=== PATIENT | female | born 1960 | race Caucasian/White ===

== ENCOUNTER 2016-06-03 06:24 | Inpatient (IN) | payer OTHER ==
[2016-05-07 09:37] VITALS: BMI 52.0
--- NOTE | 2016-05-07 10:15 | PAT Medication Instructions ---
Service Date May 07, 2016. Current Home Medication List Aspirin (Aspirin Ec), 81 MG PO QAM Ggmhloy-Dvorkngxrkomy-Avipdydt (Excedrin Migraine), 2 TAB PO PRN Atenolol (Tenormin), 50 MG PO QAM Furosemide (Lasix), 20 MG PO QAM Naproxen (Aleve), 440 MG PO PRN Medication Instructions For Your Scheduled Surgery Hoquefy-Vvpukohzoupdg-Mtudbjgt (Excedrin Migraine), 2 TAB PO PRN (takes rarely) Naproxen (Aleve), 440 MG PO PRN (patient will check with surgeon for instructions) - Hold the following medications the morning of surgery: Furosemide (Lasix), 20 MG PO QAM - Take the following medications the morning of surgery with a sip of water: Atenolol (Tenormin), 50 MG PO QAM Aspirin (Aspirin Ec), 81 MG PO QAM If you have any questions please call us at [phone] or [phone] ( [place]) or [phone]
[2016-05-07 10:48] LABS: BASO % 0.4 %; BASO ABS # 0.04 K/uL (0-0.2); COMPLETE YES; EOS % 5.2 %; HEMATOCRIT 40.3 % (37-47); IG% 0.1 %; LYMPH % 26.4 %; LYMPH ABS # 2.49 K/uL (1.2-3.4); MEAN CELL VOLUME 89.8 fL (80-100); MEAN CORPUSCULAR HEMOGLOBIN 30.7 pg (25-34); MEAN CORPUSCULAR HGB CONC 34.2 g/dl (32-36); MONO % 9.8 %; NEUT % 58.1 %; PLATELET COUNT 376 K/uL (130-400); RED BLOOD COUNT 4.49 M/uL (4.2-5.4); WHITE BLOOD COUNT 9.42 K/uL (4.8-10.8)
[2016-05-07 10:55] LABS: PARTIAL THROMBOPLASTIN RATIO 1.3; PROTHROMBIN TIME (PATIENT) 10.5 SECONDS (9.0-12.0)
--- NOTE | 2016-05-07 11:07 | DIAGNOSTIC IMAGING REPORT ---
CHEST PREADMISSION(PA/LAT) CLINICAL HISTORY: Preoperative chest COMPARISON STUDY: No previous studies for comparison. FINDINGS: The cardiac and mediastinal contours are normal. There is no evidence of focal pulmonary consolidation. There is no evidence of failure. No pleural effusions are visualized.[ Linear opacities the left lung base are felt to be atelectatic. IMPRESSION: No active disease in the chest. Electronically signed by: Abe Morelos M.D. 05/07/2016 11:05 AM Dictated Date/Time: 05/07/2016 11:05 AM
[2016-05-07 11:22] LABS: BUN/CREATININE RATIO 21.7 (10-20); CALCIUM 9.2 mg/dl (8.5-10.1); CREATININE 0.75 mg/dl (0.60-1.20); POTASSIUM 4.1 mmol/L (3.5-5.1)
--- NOTE | 2016-05-31 10:09 | HISTORY & PHYSICAL EXAMINATION ---
DATE OF ADMISSION: 06/03/2016 CHIEF COMPLAINT: Bilateral knee pain, right side greater than left. HISTORY OF PRESENT ILLNESS: The patient is a 55-year-old female from [place] who presents for treatment of her knees. She has a long history of bilateral knee pain and discomfort, right side greater than left, dating back to many years ago. Things have just gradually gotten worse. She has been treated by Dr. [place] at [facility] as well as her primary care doctor at [facility] with injections. This seemed to help the left knee, but not the right knee much anymore. She has become more debilitated by her pain. She can not walk any significant distance. She is strongly desiring knee replacement surgery. PAST MEDICAL HISTORY: 1. Hypertension. 2. Morbid obesity, BMI 52. PAST SURGICAL HISTORY: . ALLERGIES: No known drug allergies. CURRENT MEDICATIONS: Include: 1. Unspecified blood pressure medicine. 2. Fluid retention pill. 3. Aleve/ibuprofen. SOCIAL HISTORY: A 55-year-old female. She is . Two children. Lives in [place]. 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 FAMILY HISTORY: Noncontributory. REVIEW OF SYSTEMS: Negative for diabetes, neurologic problems, vascular problems, bleeding disorders. Denies any chest pain, no shortness of breath. No history of DVT or PE. PHYSICAL EXAMINATION: GENERAL: Reveals a healthy pleasant, middle-aged female. She looks to be in good health. She is quite obese. HEAD, EYES, EARS, NOSE, AND THROAT EXAMINATION: Benign. NECK: Supple. No lymphadenopathy. LUNGS: Clear to auscultation. HEART: Regular rate and rhythm. ABDOMEN: Soft, nontender, nondistended. EXTREMITY EXAMINATION: Grossly neurovascularly intact except as follows: Examination of both knees reveals the patient walks with a waddling gait. She limps a little bit more on the right than left. Fairly large soft tissue envelope, particularly up in the thigh area. Knee effusions are difficult to evaluate due to the soft tissue envelope. Range of motion is pretty symmetrical with near full extension to 110 degrees of flexion bilaterally. No pain with hip motion. X-RAYS: X-rays show advanced bilateral knee DJD. The right side is a bit worse than the left. She has complete loss of her medial joint space. ASSESSMENT: A 55-year-old morbidly obese female with advanced bilateral knee degenerative joint disease. She has failed conservative treatment. She is still getting some management on the left side but nothing on the right as far as pain relief. She would like to have her knee replaced. PLAN: After extensive discussions, we are going to proceed with right knee replacement. The risks and benefits of this procedure were explained to the patient include but not limited to DVT, PE, , infection, neurological injury, vascular injury, bleeding problem, pain, limited range of motion, stiffness, failure to relieve was symptoms, incomplete relief of symptoms, need for revision surgery in the future, etc. The patient understands and desires to proceed. Informed consent was obtained. I did make her fully aware that at her age she may need to have this redone in the future. I also discussed with her the risk of her obesity and the increased risks of surgeries, specifically infection risk as well as thrombosis risk. She understands and strongly desires to proceed. The patient had preoperative workup. Chest x-ray showed no acute disease. EKG was normal. Labs were normal. Will proceed with right knee replacement. She will plan on being discharged to home with the [facility] home health program postop. I will see her back 2 weeks postop.
[~2016-06-03] VITALS: Ht 157.5 cm; Wt 129.4 kg
[2016-06-03] VITALS (9 sets, daily range): BP systolic 111–164; BP diastolic 71–98; PULSE 71–93; TEMP 36.3–36.7; O2SAT 97–100; Ht 157.5 cm; Wt 129.4 kg
[~2016-06-03 06:24] MED LIST: ACETAMINOPHEN 500 MG TAB PO SCH; ASPI-390 PO; ASPI81TA28 PO; ATEN50TA8 PO; BUPIVACAINE LIPOSOME 266 MG, BUPIVACAINE/EPINEPHRINE INJ 50 ML, SODIUM CHLORIDE 0.9% PF... INFIL SCH; CEFAZOLIN 3000 MG/65 ML D5W 65 ML IV SCH; FAMOTIDINE 20 MG TAB PO SCH; FURO-85 PO; GABAPENTIN 300 MG CAP PO SCH; LACTATED RINGER'S 1000ML 1,000 ML IV SCH; LACTATED RINGER'S 1000ML IV SCH; METOCLOPRAMIDE HCL 10 MG TAB PO SCH; NAPR1TAB9 PO; SCOPOLAMINE 1.5 MG TDSY TD SCH; TRANEXAMIC ACID INJ 1,000 MG in SODIUM CHLORIDE 0.9% 100ML 100 ML IV SCH
--- NOTE | 2016-06-03 06:51 | History & Physical Bridge Note ---
H&P Re-Evaluation Bridge Note: I have examined the patient, reviewed the History & Physical and in the interval since the performance of the History & Physical I have noted the following changes of clinical significance: No changes noted
[2016-06-03 07:10] LABS: PREG INTERNAL NEGATIVE QC NEG CLEAR BACKGROUND; PREG INTERNAL POSITIVE QC POS CONTROL LINE
[2016-06-03] MEDS ORDERED: BUPIVACAINE 0.5 % 5 MG/1 ML PF 10ML VIAL ONE (07:23)
[2016-06-03] MEDS ORDERED: BUPIVACAINE 0.25% 30 ML VIAL ONE (07:23)
[2016-06-03] MEDS ORDERED: FENTANYL CITRATE INJ 50 MCG/1 ML 2 ML VIAL ONE ×3 (08:08→10:52)
[2016-06-03] MEDS ORDERED: MIDAZOLAM HCL 1 MG/ML 2ML VIAL ONE ×2 (08:08)
[2016-06-03] MEDS ORDERED: MoRPHine SULFATE PF 1 MG/ML 10 ML AMP/VIAL ONE (08:09)
[2016-06-03] MEDS ORDERED: BUPIVACAINE/EPINEPHRINE 0.25% 1:200,000 30 ML VIAL ONE (08:29)
[2016-06-03] MEDS ORDERED: SODIUM CHLORIDE 0.9% PF 50 ML VIAL ONE (08:29)
[2016-06-03] MEDS ORDERED: BUPIVACAINE LIPOSOME 1/3% 266 MG/20 ML VIAL INFIL ONE (08:29)
[2016-06-03] MEDS ORDERED: BACITRACIN 50000 UNIT VIAL ONE (08:29)
[2016-06-03] MEDS ORDERED: ONDANSETRON INJ 2 MG/ML 2 ML VIAL ONE (09:48)
[2016-06-03] MEDS ORDERED: ROCURONIUM BROMIDE 10 MG/ML 5 ML VIAL ONE (09:48)
[2016-06-03] MEDS ORDERED: SUCCINYLCHOLINE 100MG/5ML SYR IV ONE (09:48)
[2016-06-03] MEDS ORDERED: ESMOLOL HCL 10 MG/ML 10 ML VIAL ONE (09:48)
[2016-06-03] MEDS ORDERED: LIDOCAINE HCL 2% 2 ML VIAL (20MG/ML) ONE (09:48)
[2016-06-03] MEDS ORDERED: DEXAMETHASONE SOD INJ 4 MG/ML VIAL ONE (09:48)
[2016-06-03] MEDS ORDERED: PROPOFOL IV EMULSION 10 MG/ML 20 ML VIAL IV ONE (09:48)
[2016-06-03] MEDS ORDERED: PHENYLEPHRINE 100MCG/ML 5ML SYR ONE (09:48)
[2016-06-03] MEDS ORDERED: GLYCOPYRROLATE INJ 0.2 MG/ML VIAL ONE (10:40)
[2016-06-03] MEDS ORDERED: NEOSTIGMINE METHYLSULFATE 5 MG/5 ML SYR ONE (10:40)
[2016-06-03] MEDS ORDERED: ONDANSETRON INJ 2 MG/ML 2 ML VIAL IV PRN ×2 (11:00→11:15)
[2016-06-03] MEDS ORDERED: ATROPINE SULFATE 0.1 MG/ML 5ML SYR IV PRN (11:00)
[2016-06-03] MEDS ORDERED: EpHEDrine SULFATE INJ 50 MG/ML AMP IV PRN (11:00)
[2016-06-03] MEDS ORDERED: PROMETHAZINE HCL INJ 12.5 MG in SODIUM CHLORIDE 0.9% 50ML 50 ML IV PRN (11:00)
--- NOTE | 2016-06-03 11:02 | [facility] Post Operative Brief Note ---
Immediate Operative Summary Operative Date Jun 03, 2016. Pre-Operative Diagnosis Right Knee Advanced Degenerative Joint Disease Post-Operative Diagnosis Right Knee Advanced Degenerative Joint Disease Procedure(s) Performed Right Total Knee Arthroplasty Surgeon Dr. Puga Director Of Software Engineering Surgeon(s) KEERTHI Ma Estimated Blood Loss 50 ml Findings Right Knee DJD Fluids (cc crystalloids) 1100 cc Specimens A. Right Knee Bone and Tissue Drains None Anesthesia General Complication(s) None Disposition Recovery Room / PACU
[2016-06-03] MEDS ORDERED: BISACODYL 10 MG SUPP PR PRN (11:15)
[2016-06-03] MEDS ORDERED: MoRPHine SULFATE 2 MG/ML CARP IV PRN (11:15)
[2016-06-03] MEDS ORDERED: METOCLOPRAMIDE HCL INJ 5 MG/ML 2 ML VIAL IV PRN (11:15)
[2016-06-03] MEDS ORDERED: ALUMINUM/MAGNESIUM/SIMETH (MAALOX MAX) 30 ML UDC PO PRN (11:15)
[2016-06-03] MEDS ORDERED: DiphenhydrAMINE HCL 50 MG/ML VIAL IV PRN (11:15)
[2016-06-03] MEDS ORDERED: SILVER SULFADIAZINE 1% CR 50 GM JAR EXT PRN (11:15)
[2016-06-03] MEDS ORDERED: ZOLPIDEM TARTRATE 5 MG TAB PO PRN (11:15)
[2016-06-03] MEDS: HYDROmorphone INJ 1 MG/ML SYR IV PRN ×8 (11:22→12:05)
--- NOTE | 2016-06-03 11:31 | OPERATIVE REPORT ---
DATE OF OPERATION: 06/03/2016 SURGEON: Dr. Luis Antonio Puga. INSOLE TAPER: KEERTHI Kaplan PREOPERATIVE DIAGNOSIS: Right knee degenerative joint disease. POSTOPERATIVE DIAGNOSIS: Same. PROCEDURE PERFORMED: Right cemented posterior stabilized total knee arthroplasty. COMPLICATIONS: None. ESTIMATED BLOOD LOSS: 50 mL. FLUID REPLACEMENT: 1100 mL crystalloid fluid replacement. TOURNIQUET TIME: 59 minutes at 350 mmHg. ANESTHESIA: General. SPECIMENS: Right knee sent for pathology. OPERATIVE INDICATIONS: The patient is a 55-year-old female who has had a long history of bilateral knee pain and discomfort, right side greater than left. She has been through extensive conservative treatment without adequate relief. She is morbidly obese. She has tried to lose weight unsuccessfully. Pain has become debilitating to the point she is even trouble getting around. The patient elects to proceed with total knee arthroplasty. The increased risks with her morbid obesity were explained and she understood and desired to proceed. Of note, we did use a tibial stem due to her large size in order to decrease its likelihood of loosening of the tibial component. OPERATIVE FINDINGS: Operative findings revealed advanced right knee DJD. She had grade 4 [id number] disease, particularly of the medial femoral condyle and medial tibial plateau. Moderate size joint effusion. Large soft tissue envelope. OPERATIVE IMPLANTS: Operative implants consisted of: 1. Biomet Vanguard size 62.5 right posterior stabilized femoral component. 2. Biomet size 63 tibial tray with a 5-mm offset, and 11 x 80-mm stem extension, and small cruciate wing. 3. A 10-mm posterior stabilized polyethylene insert. 4. A 31 x 8 all poly patella. OPERATIVE PROCEDURE: The patient was taken to the operating room, identified and placed on the operating table in the supine position. All contact areas were appropriately padded. IV antibiotics were provided by anesthesia team. A spinal anesthetic was attempted in the holding area, but unsuccessful. A general anesthetic was therefore implemented. A Hollingsworth catheter was placed in sterile fashion. Right thigh tourniquet was then placed. The right lower extremity was then prepped and draped in the usual sterile fashion. The right leg was elevated and exsanguinated with Esmarch and tourniquet was placed at 350 mmHg. An anterior approach to the right knee was then performed through a longitudinal incision centered over the patella. Sharp dissection was carried out through the subcutaneous tissues down to the level of the extensor mechanism. A medial parapatellar arthrotomy incision was made. Some subperiosteal dissection was carried out medially. The patella was subluxated laterally. The lateral patellofemoral ligament was released. The knee was flexed. The osteophytes were taken off the distal femur. The ACL and PCL were then released from the distal femur and the tibia subluxated anteriorly. I then used a saw to cut off the intercondylar eminence area. I entered the intramedullary canal with a drill. We reamed up to a size 11, which seemed to fit appropriately. I then cut the proximal tibia to remove 2 mm of bone from the most deficient aspect of the medial tibial plateau. I then sized the tibia to a size 63. The 67 was just a little too big. I then prepared the proximal tibia for a 5-mm offset stem with a 63 tray with a small cruciate wing. Attention was then drawn to the femur. The distal femur was entered with a sharp drill. Intramedullary canal was suctioned. A right 5-degree valgus cutting guide was placed. Distal femoral cutting block was pinned in place. Distal femoral cut was made to take an additional 3 mm of bone off the distal femur. The femur was then sized to a size 62.5. We did downsize this slightly. The AP cutting block was pinned parallel to the epicondylar axis, which was 4 degrees of external rotation. The anterior cut, anterior chamfer, posterior cut, and posterior chamfer cuts were made. Box cutting guide was placed and adjusted slightly lateral and the box cut was made. The knee was flexed. The remnants of the medial and lateral menisci were excised. The osteophytes were taken off the posterior aspect of the femur. Trial femoral component was placed. I then trialed the knee. A 10-mm insert fit most appropriately. Attention was then drawn to the patella. The patella was cleaned of all soft tissues. Patella thickness measured 23 mm, cut down to 13. It was sized to a size 31 patella. Lug holes were drilled for the 31 patella. Lateral osteophyte was removed. Patella button was placed. Knee was taken through range of motion and the patella tracked nicely with no thumbs test. Attention was then drawn toward placement of the permanent components. All trial components were removed. A bone plug was placed in the distal femur to limit blood loss. A double batch of Palacos G cement was mixed. A right size 62.5 posterior stabilized femoral component, size 63 tibial tray with an 80 x 11 offset stem with a 5-mm offset adapter and a small cruciate wing was then placed. A 31 x 8 all poly patella was placed. All extraneous cement was removed. The knee was brought out into full extension until cement hardened. A final cement check was then performed. Pericapsular tissues were injected with a total of 100 mL of a combination of 20 mL of Exparel, 30 mL of normal saline, and 50 mL of 0.25% Marcaine with epinephrine. The patient did receive 1 gram of tranexamic acid. The tourniquet was then let down for final tourniquet time of 69 minutes. Hemostasis was assured with use of electrocautery. The extensor mechanism was then closed with a combination of #1 PDS suture and #1 Vicryl suture in a [id number] fashion. Extensor mechanism was checked and found to be intact. The subcutaneous tissues were then closed with 2-0 Dexon suture in a buried interrupted fashion. Skin was closed skin chester. Leg was then cleaned and dried and a sterile dressing of Xeroform, 4 x 4, sterile cast padding and Yadiel bandage were applied. The patient then transferred to the recovery room in stable condition. The patient tolerated the procedure well with no complications. All needle and sponge counts were correct at the end of the operation. I attest to the content of the Intraoperative Record and any orders documented therein. Any exceptions are noted below. FRANCISD
--- NOTE | 2016-06-03 11:32 | DIAGNOSTIC IMAGING REPORT ---
RIGHT KNEE 1 OR 2 VIEWS ROUTINE CLINICAL HISTORY: AP/LATERAL IN PACU RIGHT KNEE Right postoperative evaluation COMPARISON: None DISCUSSION: Total right knee replacement in good position. Longstem tibial prosthetic. Surgical drains in position. Expected soft tissue postoperative change. IMPRESSION: Anatomic alignment status post total right knee replacement Electronically signed by: Hiren Lemus M.D. 06/03/2016 11:30 AM Dictated Date/Time: 06/03/2016 11:30 AM
--- NOTE | 2016-06-03 11:41 | Anesthesiology Progress Note ---
Anesthesia Post Op Note Date & Time Jun 03, 2016 at 11:42 Vital Signs Pain Intensity: 4 Vital Signs Past 12 Hours Date Time Temp Pulse Resp B/P Pulse Ox O2 Delivery O2 Flow Rate FiO2 06/03/16 11:40 78 12 161/91 100 Nasal Cannula 2 06/03/16 11:30 82 18 151/80 99 Mask 10 06/03/16 11:20 79 20 141/88 100 Mask 10 06/03/16 11:11 36.8 80 20 140/74 97 Mask 10 06/03/16 07:20 36.7 78 18 162/98 98 Room Air Notes Mental Status: alert / awake / arousable, participated in evaluation Pt Amnestic to Procedure: Yes Nausea / Vomiting: adequately controlled Pain: adequately controlled Airway Patency, RR, SpO2: stable & adequate BP & HR: stable & adequate Hydration State: stable & adequate Anesthetic Complications: no major complications apparent
[2016-06-03] MEDS: OXYCODONE HCL IR 5 MG TAB (IMMEDIATE RELEASE) PO PRN ×2 (13:35→17:28)
--- NOTE | 2016-06-03 13:47 | PROGRESS NOTE ---
DATE: 06/03/2016 SUBJECTIVE: A 55-year-old female status post a right total knee replacement. She is doing well. Pain is controlled. Not really have any pain at all. No chest pain or shortness of breath. Not feeling dizzy or lightheaded. OBJECTIVE: VITAL SIGNS: Temperature 36.4. Vital signs stable. GENERAL: Physical examination reveals a healthy, pleasant middle-aged female. She is sitting up in bed and talking to her family. Looks comfortable. LUNGS: Clear to auscultation. HEART: Regular rate and rhythm. ABDOMEN: Soft, nontender, and nondistended. EXTREMITIES: Grossly neurovascularly intact except as follows: Examination of the right lower extremity reveals the leg to be well aligned. Large soft tissue envelope. She can dorsiflex and plantarflex her foot appropriately. She is neurologically intact. Brisk refill. X-RAYS: X-rays of the right knee from recovery room were reviewed. It shows a right cemented posterior stabilized total knee arthroplasty with a tibial stem ____ rotated film. Components looked to be in acceptable alignment. No signs of complications. ASSESSMENT: A 55-year-old female postop from a right knee replacement, doing well. Her pain is controlled. She is neurologically intact. PLAN: 1. DVT prophylaxis including thigh-high TEDs, SCDs, and aspirin twice a day. 2. PT/OT. Weightbearing as tolerated. Right total knee protocol. 3. IV antibiotics x24 hours. 4. Disposition: She is planning to be discharged to home likely with some home health once adequately recovered.
[2016-06-03] MEDS: D5W AND 1/2NSS + 20MEQ KCL 1,000 ML IV SCH ×2 (14:26→21:46)
[2016-06-03] MEDS: ACETAMINOPHEN 500 MG TAB PO SCH ×2 (14:27→21:47)
[2016-06-03] MEDS: CHECK SCOPOLAMINE PATCH PLACEMENT SCH (15:52)
[2016-06-03] MEDS: KETOROLAC TROMETHAMINE 30 MG/ML VIAL IV. SCH ×2 (15:53→21:48)
[2016-06-03] MEDS: FERROUS GLUCONATE 324 MG TAB PO SCH (17:27)
[2016-06-03] MEDS: CEFAZOLIN IV 2,000 MG in DEXTROSE 5% 50ML 50 ML IV SCH (17:54)
[2016-06-03] MEDS ORDERED: TRANEXAMIC ACID INJ 1,000 MG in SODIUM CHLORIDE 0.9% 100ML 100 ML IV ONE (18:00)
[2016-06-03] MEDS: DOCUSATE SODIUM 100 MG CAP PO SCH (21:47)
[2016-06-03] MEDS: TAPENTADOL ER 50 MG TABCR PO SCH (21:48)
[2016-06-03] MEDS: ASPIRIN 325 MG ECTAB PO SCH (21:48)
[2016-06-04] MEDS: CHECK SCOPOLAMINE PATCH PLACEMENT SCH ×4 (00:24→23:59)
[2016-06-04] MEDS: CEFAZOLIN IV 2,000 MG in DEXTROSE 5% 50ML 50 ML IV SCH (01:57)
[2016-06-04 03:10] VITALS: BP 158/85; PULSE 82; TEMP 36.6; O2SAT 97
[2016-06-04] MEDS: D5W AND 1/2NSS + 20MEQ KCL 1,000 ML IV SCH ×2 (03:11→09:44)
[2016-06-04] MEDS: OXYCODONE HCL IR 5 MG TAB (IMMEDIATE RELEASE) PO PRN ×5 (03:11→23:58)
[2016-06-04] MEDS: KETOROLAC TROMETHAMINE 30 MG/ML VIAL IV. SCH ×4 (03:46→21:27)
[2016-06-04] MEDS: ACETAMINOPHEN 500 MG TAB PO SCH ×3 (05:46→21:27)
[2016-06-04 06:37] LABS: HEMATOCRIT 33.7 % (37-47); MEAN CELL VOLUME 91.1 fL (80-100); MEAN CORPUSCULAR HEMOGLOBIN 30.3 pg (25-34); MEAN CORPUSCULAR HGB CONC 33.2 g/dl (32-36); MEAN PLATELET VOLUME 9.5 fL (7.4-10.4); PLATELET COUNT 339 K/uL (130-400); WHITE BLOOD COUNT 15.05 K/uL (4.8-10.8)
[2016-06-04 07:13] LABS: BUN/CREATININE RATIO 9.4 (10-20); CALCIUM 8.6 mg/dl (8.5-10.1); CREATININE 0.8 mg/dl (0.60-1.20); POTASSIUM 4.4 mmol/L (3.5-5.1)
--- NOTE | 2016-06-04 07:28 | Anesthesiology Progress Note ---
Anesthesia Post Op Note Date & Time Jun 04, 2016 at 07:28 Vital Signs Pain Intensity: 6.0 Vital Signs Past 12 Hours Date Time Temp Pulse Resp B/P Pulse Ox O2 Delivery O2 Flow Rate FiO2 06/04/16 03:10 36.6 82 16 158/85 97 Room Air 06/03/16 23:35 36.7 86 18 111/71 98 Room Air 06/03/16 23:30 Room Air Notes Mental Status: alert / awake / arousable, participated in evaluation Pt Amnestic to Procedure: Yes Nausea / Vomiting: adequately controlled Pain: adequately controlled Airway Patency, RR, SpO2: stable & adequate BP & HR: stable & adequate Hydration State: stable & adequate Anesthetic Complications: no major complications apparent
[2016-06-04 08:01] VITALS: BP 150/80; PULSE 74; TEMP 36.7; O2SAT 100
[2016-06-04] MEDS: ASPIRIN 325 MG ECTAB PO SCH ×2 (09:39→21:25)
[2016-06-04] MEDS: TAPENTADOL ER 50 MG TABCR PO SCH ×2 (09:39→21:25)
[2016-06-04] MEDS: PANTOprazole SOD 40 MG TAB PO SCH (09:40)
[2016-06-04] MEDS: FERROUS GLUCONATE 324 MG TAB PO SCH ×3 (09:40→18:12)
[2016-06-04] MEDS: FUROSEMIDE 20 MG TAB PO SCH (09:41)
[2016-06-04] MEDS: DOCUSATE SODIUM 100 MG CAP PO SCH ×2 (09:41→21:25)
[2016-06-04] MEDS: MULTIVITAMIN TAB PO SCH (09:42)
[2016-06-04 11:46] VITALS: O2SAT 100
[2016-06-04 12:18] VITALS: BP 140/80; PULSE 74; TEMP 37; O2SAT 99
[2016-06-04] MEDS ORDERED: ASPEC325 PO (13:42)
[2016-06-04] MEDS ORDERED: MORP15TA19 PO (13:42)
[2016-06-04] MEDS ORDERED: OXYC-57 PO (13:42)
--- NOTE | 2016-06-04 13:44 | Discharge Instructions ---
Discharge Instructions Admission Reason for Admission: Right Knee Osteoarthritis, Knee Pain Discharge Discharge Diagnosis / Problem: Right Knee Replacement Discharge Goals Goal(s): Decrease discomfort, Improve function, Increase independence, Improve disease control, Therapeutic intervention Activity Recommendations Activity Limitations: per Instructions/Follow-up section Weightbearing Status: Right weightbearing . Instructions / Follow-Up Instructions / Follow-Up ACTIVITY RECOMMENDATIONS: Physical Therapy: * You will go to physical therapy three times each week for four to six weeks after your surgery in order to regain your knee range of motion and to retrain your knee to work properly. * It is just as important to make sure you are getting your knee perfectly straight as it is to regain your knee bend. * Taking a pain pill an hour before therapy can help you have a more productive and comfortable therapy session. Home Exercise: * You were shown a series of exercises (heel props, heel slides, etc.) in the hospital. Do these exercises three to four times each day including the exercises you were shown in physical therapy. Walking: * Get up and walk several times each day. For the first four weeks, try not to stand or walk for more than one hour at a time. If you do stand or walk for more than one hour, you will not hurt anything, but your knee and leg will likely swell. * As you feel comfortable, you may change from the walker or crutches to a cane and then to independent walking. MEDICATIONS: New Medicine: * You will likely be taking one or more of these medications: 1. MS Contin - A long-acting pain medication. Take 1 tablet twice a day for the first ten days to decrease your baseline level of pain. 2. Percocet - A quick and shorter-acting pain medication. Take one to two tablets every four to six hours to lessen your pain. 3. Aspirin - Thins your blood to lessen the chance of forming a blood clot. * The most common side effects of pain medicine and iron are nausea and constipation. If nausea or constipation is too much of a problem or if you have any questions about your new medicines or doses, call [facility] at [phone]. We will try to help you manage these issues. VERY IMPORTANT TO READ AND REVIEW" Pain: * The immediate post-operative period after knee replacement surgery is often quite painful. * You are given a prescription for pain medicine. You should take it, as directed, when you need it, especially before physical therapy and before going to bed. Pain that interferes with sleep is very common and can last several months. * You will likely need pain medicine for the first four to six weeks. It will not stop all of the pain. The pain will lessen and as you feel better, you may change to milder pain medicine such as Tylenol. * The most common side effects of pain medicine are nausea and constipation, so don't take more than you need. SPECIAL CARE INSTRUCTIONS: TEDs/Elastic Stockings: * The white elastic stockings help limit swelling and prevent blood clots from forming in your legs. The more you wear them, the more they work. * Wear them for six weeks after knee replacement surgery and four weeks after partial knee replacement. Prevention of Infection: * Take antibiotics one hour before any dental cleaning, dental work, urological procedure, gastrointestinal procedure or any invasive surgery in order to prevent your new joint from getting infected. * You may get the antibiotics from the doctor performing the procedure or you may call our office at before and we will call in a prescription to the pharmacy of your choice. Things to Watch For: * Drainage from the incision site that occurs more than one week after your surgery. * Severely increased knee/leg pain or swelling. * Increased redness at the incision site. * Fever above 102 degrees Fahrenheit. * Unusual chest pain or shortness of breath. * Unusual pain or burning with urination. Call [facility] at with any of the above problems or if you have any questions about your medicines or recovery. FOLLOW UP VISIT: Make an appointment to see your doctor for approximately two weeks after surgery for a progress check and staple removal by calling the office at . Current Hospital Diet Patient's current hospital diet: Regular Diet Discharge Diet Recommended Diet: Regular Diet Procedures Procedures Performed: Right Total Knee Arthroplasty Pending Studies Studies pending at discharge: no Medical Emergencies . Who to Call and When: Medical Emergencies: If at any time you feel your situation is an emergency, please call [phone] immediately. . Non-Emergent Contact Non-Emergency issues call your: Surgeon . "Provider Documentation" section prepared by Luis Antonio Puga. VTE Core Measure Inpt VTE Proph given/why not?: Other Anticoagulation, T.E.D. Stockings, SCD's
--- NOTE | 2016-06-04 13:53 | PROGRESS NOTE ---
DATE: 06/04/2016 SUBJECTIVE: A 55-year-old female postop day 1 from a right knee replacement. She is doing well. Pain is controlled. Therapy went reasonably well. Denies any chest pain or shortness of breath. OBJECTIVE: VITAL SIGNS: Temperature 37.0. Vital signs stable. GENERAL: Reveals a healthy, pleasant middle-aged female. She is sitting up in her bedside chair and looks comfortable. LUNGS: Clear to auscultation. HEART: Regular rate and rhythm. ABDOMEN: Soft, nontender, nondistended. EXTREMITIES: Grossly neurovascularly intact except as follows. Examination of the right lower extremity reveals the dressing to be clean, dry and intact. She can dorsiflex and plantarflex her foot appropriately. She is neurologically intact. LABS: Hemoglobin is 11.2. Hematocrit 33.7. Electrolytes are stable. ASSESSMENT: A 55-year-old female postop day 1 from a right knee replacement, doing pretty well. Pain is controlled. She is neurologically intact. PLAN: 1. DVT prophylaxis including thigh-high TEDs, SCDs, and aspirin twice a day. 2. PT/OT. Weightbearing as tolerated. Right total knee protocol. 3. Pain control, doing pretty well with current pain regimen. 4. Disposition: She is planning to be discharged to home with home health once adequately recovered.
[2016-06-04 15:12] VITALS: BP 141/85; PULSE 77; TEMP 36.3; O2SAT 98
[2016-06-04] MEDS: MAGNESIUM HYDROXIDE SUSP 30 ML UDC PO PRN (18:33)
[2016-06-04 23:28] VITALS: BP 114/72; PULSE 74; TEMP 36.7; O2SAT 95
[2016-06-05] MEDS: KETOROLAC TROMETHAMINE 30 MG/ML VIAL IV. SCH ×2 (03:44→10:10)
[2016-06-05] MEDS: ACETAMINOPHEN 500 MG TAB PO SCH ×2 (05:39→13:35)
[2016-06-05 07:19] VITALS: BP 144/86; PULSE 90; TEMP 36.5; O2SAT 97
[2016-06-05] MEDS: OXYCODONE HCL IR 5 MG TAB (IMMEDIATE RELEASE) PO PRN ×2 (07:19→13:35)
--- NOTE | 2016-06-05 07:45 | PROGRESS NOTE ---
DATE: 06/05/2016 SUBJECTIVE: 55-year-old female postop day 2 from a right knee replacement. She is doing pretty well. Pain is controlled. Therapy went reasonably well. Denies any chest pain or shortness of breath. Not feeling dizzy or lightheaded. OBJECTIVE: VITAL SIGNS: Temperature 36.5. Vital signs stable. PHYSICAL EXAMINATION: GENERAL: Reveals a healthy, pleasant middle-aged female. She is sitting up in her bedside chair and looks pretty comfortable. LUNGS: Clear to auscultation. HEART: Regular rate and rhythm. ABDOMEN: Soft, nontender, nondistended. EXTREMITIES: Grossly neurovascularly intact except as follows. Examination of the right lower extremity reveals the dressing to be clean, dry and intact. Calf is soft and supple. She can dorsiflex and plantarflex her foot appropriately. She is neurologically intact. ASSESSMENT: 55-year-old female postop day 2 from right knee replacement, doing pretty well. Pain is controlled. PLAN: 1. DVT prophylaxis including thigh-high TEDs, SCDs, and aspirin twice a day. 2. PT/OT. Weightbearing as tolerated. Right total knee protocol. 3. Pain control, doing pretty well with current pain regimen. 4. Disposition: Plan to discharge to home with home health.
[2016-06-05] MEDS: FERROUS GLUCONATE 324 MG TAB PO SCH ×2 (09:06→13:31)
[2016-06-05] MEDS: TAPENTADOL ER 50 MG TABCR PO SCH (09:06)
[2016-06-05] MEDS: PANTOprazole SOD 40 MG TAB PO SCH (09:07)
[2016-06-05] MEDS: MULTIVITAMIN TAB PO SCH (09:07)
[2016-06-05] MEDS: ASPIRIN 325 MG ECTAB PO SCH (09:07)
[2016-06-05] MEDS: DOCUSATE SODIUM 100 MG CAP PO SCH (09:07)
[2016-06-05 09:09] VITALS: BP 150/85; PULSE 86
[2016-06-05] MEDS: FUROSEMIDE 20 MG TAB PO SCH (09:10)
[2016-06-05] MEDS: MAGNESIUM HYDROXIDE SUSP 30 ML UDC PO PRN (10:21)
[2016-06-05 13:17] VITALS: BP 150/85; PULSE 86; TEMP 36.5; O2SAT 97
== END 2016-06-05 18:00 | disposition home health service (06) | DRG 470 ==
LOC: ENRESERVTM → ENRESERVDT → C.ACU 06:24 → C.3E 07:00
PROVIDERS: ADMIT Orthopaedic Surgery Sports Medicine; ATTEND Orthopaedic Surgery Sports Medicine
PROC: 0SRC0J9 Replacement of Right Knee Joint with Synthetic Substitute, Cemented, Open Approach (ICD-10-PCS; principal; 2016-06-03 08:45)
DX: M17.0 Bilateral primary osteoarthritis of knee (principal); Z68.43 Body mass index [BMI] 50.0-59.9, adult; M25.461 Effusion, right knee; I10 Essential (primary) hypertension; K21.9 Gastro-esophageal reflux disease without esophagitis; G43.909 Migraine, unspecified, not intractable, without status migrainosus; E66.01 Morbid (severe) obesity due to excess calories; Z79.82 Long term (current) use of aspirin; Z79.899 Other long term (current) drug therapy

== ENCOUNTER 2017-01-09 21:04 | Emergency (ER) | payer OTHER ==
[~2017-01-09] VITALS: Ht 157.5 cm; Wt 164.2 kg
[~2017-01-09 21:04] MED LIST changes: -ACETAMINOPHEN 500 MG TAB PO SCH; +ASPEC325 PO; -ASPI81TA28 PO; -BUPIVACAINE LIPOSOME 266 MG, BUPIVACAINE/EPINEPHRINE INJ 50 ML, SODIUM CHLORIDE 0.9% PF... INFIL SCH; -CEFAZOLIN 3000 MG/65 ML D5W 65 ML IV SCH; -FAMOTIDINE 20 MG TAB PO SCH; -GABAPENTIN 300 MG CAP PO SCH; -LACTATED RINGER'S 1000ML 1,000 ML IV SCH; -LACTATED RINGER'S 1000ML IV SCH; -METOCLOPRAMIDE HCL 10 MG TAB PO SCH; -SCOPOLAMINE 1.5 MG TDSY TD SCH; -TRANEXAMIC ACID INJ 1,000 MG in SODIUM CHLORIDE 0.9% 100ML 100 ML IV SCH
[2017-01-09 21:17] VITALS: TEMP 37; O2SAT 100; Ht 157.5 cm; Wt 164.2 kg
[2017-01-09] MEDS ORDERED: ALUMINUM/MAGNESIUM SUSP 30 ML UDC PO STA (21:17)
[2017-01-09] MEDS ORDERED: ONDANSETRON INJ 2 MG/ML 2 ML VIAL IV STA (21:17)
--- NOTE | 2017-01-09 21:34 | DIAGNOSTIC IMAGING REPORT ---
CHEST ONE VIEW PORTABLE HISTORY: 56 years-old Female ABDOMINAL PAIN/GI acute generalized abdominal pain with chest pressure. COMPARISON: Chest radiograph 05/07/2016 TECHNIQUE: Portable upright AP view of the chest FINDINGS: Cardiomediastinal and hilar silhouettes are within normal limits. There is no pneumothorax, pleural effusion or focal airspace consolidation. 11 mm ossification adjacent to the right greater tuberosity humerus suggests calcific tendinosis or calcific bursitis. Similar smaller calcifications are seen on the left. Patient obesity is noted. Bones are grossly intact. IMPRESSION: No acute cardiopulmonary process. The above report was generated using voice recognition software. It may contain grammatical, syntax or spelling errors. Electronically signed by: Taj Street M.D. 01/09/2017 9:33 PM Dictated Date/Time: 01/09/2017 9:31 PM
--- NOTE | 2017-01-09 21:43 | EMERGENCY ROOM VISIT NOTE ---
History Report prepared by Bárbara: Domenic Reyes Under the Supervision of: Dr. Danny Holder D.O. First contact with patient: 21:13 Chief Complaint: CHEST PAIN Stated Complaint: HEART PRESSURE History of Present Illness The patient is a 56 year old female who presents to the Emergency Room with complaints of constant chest pain that started an hour ago. She rates her pain as a 3/10 in severity and describes the pain as cramping. She also states that the pain radiates into her back. The patient states that she was making food for her tailgate tomorrow and started to experience chest pain. She states that she was also experiencing nausea. She states that she took three Aspirin and two heartburn pills an hour ago for her symptoms, which she admits helped mildly relieve her symptoms. The patient states that she was able to "talk myself out of it" and reports that her pain is not as sever. She admits to a history of hypertension, which she takes medication for. The patient denies any stress test or catheterizations in the past. She states that her PCP is Dr. Zhang Ma of [facility]. The patient denies tobacco use occasionally drinking denies headache, SOB, abdominal pain, and vomiting. Source of History: patient Onset: constant Position: chest Symptom Intensity: 3/10 Quality: cramping Timing: constant Modifying Factors (Relieving): other (Aspirin, Heartburn medication) Associated Symptoms: + nausea, No headache, No SOB, No vomiting, No abdominal pain Review of Systems See HPI for pertinent positives & negatives. A total of 10 systems reviewed and were otherwise negative. Past Medical & Surgical Medical Problems: (1) Right Knee DJD Family History Patient reports no known family medical history. Social History Smoking Status: Never Smoker Marital Status: Housing Status: lives with significant other Occupation Status: employed Current/Historical Medications Scheduled Aspirin (Aspirin Ec), 2 TAB PO DAILY Kvkgkkn-Xfbhuxuhfwtrm-Xrdsxnzo (Excedrin Migraine), 2 TAB PO PRN Atenolol (Tenormin), 50 MG PO QAM Furosemide (Lasix), 20 MG PO QAM Naproxen (Aleve), 440 MG PO PRN Allergies Coded Allergies: No Known Allergies (Unverified , 01/09/17) Physical Exam Vital Signs Date Time Temp Pulse Resp B/P (MAP) Pulse Ox O2 Delivery O2 Flow Rate FiO2 01/09/17 23:20 73 20 138/74 96 01/09/17 22:17 80 12 156/82 95 Room Air 01/09/17 21:34 85 12 152/88 100 Room Air 01/09/17 21:21 90 01/09/17 21:17 100 Room Air 01/09/17 21:17 37.0 92 20 175/94 100 Room Air 01/09/17 21:17 100 Room Air Physical Exam GENERAL: Patient is awake, alert, and in no acute distress. Patient is resting comfortably and showing no signs of anxiety EYES: The conjunctivae are clear. The pupils are round and reactive. EARS, NOSE, MOUTH AND THROAT: The nose is without any evidence of any deformity. Mucous membranes are moist tongue is midline NECK: The neck is nontender and supple. RESPIRATORY: Normal respiratory effort is noted there is no evidence of wheezing rhonchi or rales CARDIOVASCULAR: Regular rate and rhythm noted there no murmurs rubs or gallops normal S1 normal S2 GASTROINTESTINAL: The abdomen is soft. Bowel sounds are present in all quadrants. Abdomen is nontender MUSCULOSKELETAL/EXTREMITIES: There is no evidence of gross deformity full range of motion is noted in the hips and shoulders SKIN: There is no obvious evidence of any rash. There are no petechiae, pallor or cyanosis noted. NEUROLOGIC: Patient is awake alert and oriented x3 strength is symmetric patellar reflexes are 2+ bilaterally Medical Decision & Procedures ER Provider Diagnostic Interpretation: X-ray results as stated below per interpretation by me and the radiologist. CHEST ONE VIEW PORTABLE HISTORY: 56 years-old Female ABDOMINAL PAIN/GI acute generalized abdominal pain with chest pressure. COMPARISON: Chest radiograph 05/07/2016 TECHNIQUE: Portable upright AP view of the chest FINDINGS: Cardiomediastinal and hilar silhouettes are within normal limits. There is no pneumothorax, pleural effusion or focal airspace consolidation. 11 mm ossification adjacent to the right greater tuberosity humerus suggests calcific tendinosis or calcific bursitis. Similar smaller calcifications are seen on the left. Patient obesity is noted. Bones are grossly intact. IMPRESSION: No acute cardiopulmonary process. The above report was generated using voice recognition software. It may contain grammatical, syntax or spelling errors. Electronically signed by: Taj Street M.D. 01/09/2017 9:33 PM Dictated Date/Time: 01/09/2017 9:31 PM Laboratory Results 01/09/17 21:30 Red Blood Count 4.72, Mean Corpuscular Volume 91.7, Mean Corpuscular Hemoglobin 29.9, Mean Corpuscular Hemoglobin Concent 32.6, Mean Platelet Volume 9.9, Neutrophils (%) (Auto) 64.8, Lymphocytes (%) (Auto) 20.4, Monocytes (%) (Auto) 10.3, Eosinophils (%) (Auto) 3.9, Basophils (%) (Auto) 0.5, Neutrophils # (Auto ) 6.89, Lymphocytes # (Auto) 2.17, Monocytes # (Auto) 1.10, Eosinophils # (Auto ) 0.41, Basophils # (Auto) 0.05 01/09/17 21:30 Test 01/09/17 21:30 01/09/17 22:40 White Blood Count 10.63 K/uL (4.8-10.8) Red Blood Count 4.72 M/uL (4.2-5.4) Hemoglobin 14.1 g/dL (12.0-16.0) Hematocrit 43.3 % (37-47) Mean Corpuscular Volume 91.7 fL (80-100) Mean Corpuscular Hemoglobin 29.9 pg (25-34) Mean Corpuscular Hemoglobin Concent 32.6 g/dl (32-36) Platelet Count 330 K/uL (130-400) Mean Platelet Volume 9.9 fL (7.4-10.4) Neutrophils (%) (Auto) 64.8 % Lymphocytes (%) (Auto) 20.4 % Monocytes (%) (Auto) 10.3 % Eosinophils (%) (Auto) 3.9 % Basophils (%) (Auto) 0.5 % Neutrophils # (Auto) 6.89 K/uL (1.4-6.5) Lymphocytes # (Auto) 2.17 K/uL (1.2-3.4) Monocytes # (Auto) 1.10 K/uL (0.11-0.59) Eosinophils # (Auto) 0.41 K/uL (0-0.5) Basophils # (Auto) 0.05 K/uL (0-0.2) RDW Standard Deviation 44.6 fL (36.4-46.3) RDW Coefficient of Variation 13.5 % (11.5-14.5) Immature Granulocyte % (Auto) 0.1 % Immature Granulocyte # (Auto) 0.01 K/uL (0.00-0.02) Prothrombin Time 10.1 SECONDS (9.0-12.0) Prothromb Time International Ratio 0.9 (0.9-1.1) Activated Partial Thromboplast Time 27.2 SECONDS (21.0-31.0) Partial Thromboplastin Ratio 1.0 Anion Gap 10.0 mmol/L (3-11) Est Creatinine Clear Calc Drug Dose 100.1 ml/min Estimated GFR () 77.2 Estimated GFR (Non- 66.6 BUN/Creatinine Ratio 20.2 (10-20) Calcium Level 9.2 mg/dl (8.5-10.1) Total Bilirubin 0.4 mg/dl (0.2-1) Direct Bilirubin 0.2 mg/dl (0-0.2) Aspartate Amino Transf (AST/SGOT) 37 U/L (15-37) Alanine Aminotransferase (ALT/SGPT) 33 U/L (12-78) Alkaline Phosphatase 120 U/L (45-117) Total Creatine Kinase 228 U/L (26-192) Creatine Kinase MB 0.8 ng/ml (0.5-3.6) Creatine Kinase MB Ratio 0.4 (0-3.0) Troponin I < 0.015 ng/ml (0-0.045) Total Protein 7.2 gm/dl (6.4-8.2) Albumin 3.6 gm/dl (3.4-5.0) Amylase Level 41 U/L (25-115) Lipase 195 U/L (73-393) Urine Color YELLOW Urine Appearance CLEAR (CLEAR) Urine pH 6.0 (4.5-7.5) Urine Specific [place] 1.015 (1.000-1.030) Urine Protein NEG (NEG) Urine Glucose (UA) NEG (NEG) Urine Ketones NEG (NEG) Urine Occult Blood NEG (NEG) Urine Nitrite NEG (NEG) Urine Bilirubin NEG (NEG) Urine Urobilinogen NEG (NEG) Urine Leukocyte Esterase NEG (NEG) Laboratory results per my review. Medications Administered Medications (Trade) Dose Ordered Sig/Luz Maria Route Start Time Stop Time Status Last Admin Dose Admin Al Hydroxide/Mg Hydroxide (Maalox Susp) 30 ml NOW STAT PO 01/09/17 21:17 9/29/17 21:19 DC 01/09/17 21:33 30 ML Ondansetron HCl (Zofran Inj) 4 mg NOW STAT IV 01/09/17 21:17 01/09/17 21:19 DC 01/09/17 21:33 4 MG ECG Indication: chest pain Rate (beats per minute): 92 Rhythm: sinus rhythm Findings: no ectopy, other (No acute ST segments) Comparison ECG Date: 04/17/16 Change: no significant change ED Course 2113: The patient was evaluated in room C09. A complete history and physical examination were performed. 2116: Ordered Zofran Injection 4 mg IV, Maalox Susp 20 ml PO. 2314: Upon reevaluation, the patient is resting comfortably. I discussed the results and treatment plan with the patient. He verbalized agreement of the treatment plan. The patient was discharged home. Medical Decision Differential diagnosis: Etiologies such as cardiac ischemia, aortic dissection, pulmonary embolism, pneumonia, pneumothorax, musculoskeletal, infections, pericarditis, myocarditis , esophageal rupture, gastrointestinal, as well as others were entertained. Nursing notes reviewed. The patient is a 56-year-old female who presented to the emergency department for an evaluation of epigastric and chest pain. The patient states that she felt this was consistent with a GI source for her pain. I discussed the patient' s laboratory and radiographic studies with her. I also discussed the limitations of the emergency department workup for chest pain with her. She was encouraged to rest and avoid any strenuous activity. She was also encouraged to continue all medications as prescribed. He was also encouraged to follow-up with her primary care physician as soon as possible for further evaluation and for possible stress testing. Otherwise she was encouraged to return to the emergency Department immediately if symptoms change worsen or the need arises. Medication Reconcilliation Current Medication List: was personally reviewed by me Blood Pressure Screening Patient's blood pressure: Elevated blood pressure Blood pressure disposition: Elevated BP felt to be situational Impression Primary Impression: Epigastric abdominal pain Scribe Attestation The scribe's documentation has been prepared under my direction and personally reviewed by me in its entirety. I confirm that the note above accurately reflects all work, treatment, procedures, and medical decision making performed by me. Departure Information Dispostion Home / Self-Care Referrals Zhang Ma M.D. (PCP) Forms Call Back Authorization, HOME CARE DOCUMENTATION FORM, IMPORTANT VISIT INFORMATION Patient Instructions ED Chest Pain Atypical Unkn Cause, My [facility] Additional Instructions Call your family to schedule a follow-up appointment. Rest and avoid any strenuous activity. Consider trying Maalox or Mylanta as directed for upset stomach. Return to the emergency department immediately if symptoms change worsen or the need arises.
[2017-01-09 21:46] LABS: BASO % 0.5 %; BASO ABS # 0.05 K/uL (0-0.2); COMPLETE YES; EOS % 3.9 %; HEMATOCRIT 43.3 % (37-47); IG% 0.1 %; LYMPH % 20.4 %; LYMPH ABS # 2.17 K/uL (1.2-3.4); MEAN CELL VOLUME 91.7 fL (80-100); MEAN CORPUSCULAR HEMOGLOBIN 29.9 pg (25-34); MEAN CORPUSCULAR HGB CONC 32.6 g/dl (32-36); MEAN PLATELET VOLUME 9.9 fL (7.4-10.4); MONO % 10.3 %; NEUT % 64.8 %; PLATELET COUNT 330 K/uL (130-400); RED BLOOD COUNT 4.72 M/uL (4.2-5.4); WHITE BLOOD COUNT 10.63 K/uL (4.8-10.8)
[2017-01-09] MEDS ORDERED: ASPI81TA28 PO (21:50)
[2017-01-09 21:59] LABS: INR 0.9 (0.9-1.1); PROTHROMBIN TIME (PATIENT) 10.1 SECONDS (9.0-12.0)
[2017-01-09 22:14] LABS: ALT/SGPT 33 U/L (12-78); AMYLASE 41 U/L (25-115); BLOOD UREA NITROGEN 19 mg/dl (7-18); BUN/CREATININE RATIO 20.2 (10-20); CALCIUM 9.2 mg/dl (8.5-10.1); CARBON DIOXIDE 25 mmol/L (21-32); CHLORIDE 106 mmol/L (98-107); CREATININE 0.96 mg/dl (0.60-1.20); GLUCOSE 115 mg/dl (70-99); POTASSIUM 3.7 mmol/L (3.5-5.1); SODIUM 141 mmol/L (136-145)
[2017-01-09 22:19] LABS: ALKALINE PHOSPHATASE 120 U/L (45-117); AST/SGOT 37 U/L (15-37); CKMB/CK RATIO 0.4 (0-3.0)
[2017-01-09 22:52] LABS: URINE APPEARANCE CLEAR (CLEAR); URINE BILIRUBIN NEG (NEG); URINE COLOR YELLOW; URINE NITRITE NEG (NEG); URINE SPECIFIC GRAVITY 1.015 (1.000-1.030); UROBILINOGEN NEG (NEG)
[2017-01-09 22:54] LABS: MANUAL MICROSCOPIC REQUIRED? NO; REVIEW REQ? NO
[2017-01-09 23:20] VITALS: BP 138/74; PULSE 73; O2SAT 96
== END 2017-01-09 23:25 | disposition home or self-care (01) ==
LOC: C.EDB 21:04 → C.EDC 23:25
DX: R10.13 Epigastric pain (principal); R07.9 Chest pain, unspecified; M54.9 Dorsalgia, unspecified; R11.0 Nausea; I10 Essential (primary) hypertension; Z79.82 Long term (current) use of aspirin; Z79.899 Other long term (current) drug therapy

== ENCOUNTER 2019-12-08 10:15 | Observation (INO) ==
--- NOTE | 2019-11-04 12:50 | PAT Medication Instructions ---
Medication Instructions Date of Service November 04, 2019 Home Medications aspirin 81 mg PO QAM atenolol [Tenormin] 50 mg PO QAM furosemide 20 mg PO QAM DO NOT take the morning of surgery furosemide 20 mg PO QAM Take morning of surgery With a small sip of water, OTHERWISE NOTHING TO EAT OR DRINK AFTER MIDNIGHT: aspirin 81 mg PO QAM atenolol [Tenormin] 50 mg PO QAM Other Notes If you have any questions please call us at [phone] or [phone] or [phone] or [phone]
--- NOTE | 2019-11-07 08:32 | Anesthesiology Consultation ---
Date of Service November 07, 2019 Assessment & Plan (1) Encounter for pre-operative examination: COVID Status: As of 11/06 assessment, patient denies travel to endemic area, known exposure/sick contacts, or symptoms of COVID19. Patient instructed that they and their household members must follow strict social distancing guidelines, wear a mask in public and avoid travel for 14 days prior to surgery. Preoperative COVID19 testing to be completed prior to surgery per surgeon's arrangements. Patient made aware to self-isolate as much as possible between COVID testing and surgery. Previous TKA done with general anesthesia ([facility] 2016). No documented reason, does not appear SAB was attempted, but SAB likely difficult due to patient's body habitus. Discussed both GA and SAB with patient, as well as regional block. Chart Review Chart Review: Acceptable Risk for Surgery and Patient seen in Pre Admission Testing Teaching & Discussion Instructed NPO after midnight before surgery, except medications with 15 cc of water. Medication instructions provided according to the PAT guidelines. History Surgery Operation Date: 12/08/19 11:10 Proposed Procedures p Left Total Knee Arthroplasty - Luis Antonio Puga MD Height/Weight Height: 5 ft 2 in Weight: 141 kg Allergies Allergy/AdvReac Type Severity Reaction Status Date / Time No Known Allergies Allergy Unverified 11/01/19 11:22 Medications Home Medications Medication Instructions Recorded Confirmed Last Taken aspirin 81 mg PO QAM 11/01/19 11/01/19 Unknown atenolol [Tenormin] 50 mg PO QAM 11/01/19 11/01/19 Unknown furosemide 20 mg PO QAM 11/01/19 11/01/19 Unknown Past Medical History Medical History (Updated 11/07/19 @ 08:38 by Jonathan Horne) Hypertension Morbid obesity Osteoarthritis Exercise / Class Metabolic Activity III < 4 Walking/Shop/Light housework (Limited by knee pain and obesity, denies any chest pain but +SOB with 1 FOS) Past Surgical History Surgical History History of section History of D&C History of right knee joint replacement History of wisdom tooth extraction Nausea and vomiting after administration of anesthetic agent Past Anesthesia History No Hx of Anesthesia Complications (other than PONV) and No Family Hx of Anesthesia Complications (other than mother PONV) History of PONV No Hx of Motion Sickness and History of PONV (not with TKA, pt recalls scop patch being used) Social History Smoking Status: Never smoker Do You Dip or Chew Tobacco: No Hx Alcohol Use: Yes Alcohol type: beer and hard liquor alcohol intake frequency: a few times a month Hx Substance Use: No substance use type: does not use Review of Systems Pt denies any recent chest pain, shortness of breath, palpitations, cough, fever, URI, or uncontrolled acid reflux. Physical Exam Vital Signs BP: 131/79 P: 65bpm SPO2: 97% RA T: 98.1 F R: 12 Constitutional + morbidly obese ENMT Mouth: no dental restorations, no chipped teeth and no loose teeth Thyromental Distance: > or= 3.5 Finger Breadths (4) Mallampati Class: III Neck + short neck and + thick neck; neck extension not limited Respiratory normal respiratory effort Auscultation: lungs clear to auscultation bilaterally Cardiovascular Rate/Rhythm: regular rate and regular rhythm Heart Sounds: no murmur Vessels: no carotid bruit Extremities: no edema Testing Laboratory Results 11/07/19 08:50 11/07/19 08:50 PT 10.1 Seconds (9.0-12.0) 11/07/19 08:50 INR 1.0 (0.9-1.1) 11/07/19 08:50 APTT 27.6 Seconds (21.0-31.0) 11/07/19 08:50 Blood Type O Positive 11/07/19 08:50 Antibody Screen NEGATIVE 11/07/19 08:50 Electrocardiogram Date: 11/07/19 Findings: + NSR @ (66bpm) Chest X-Ray Date: 11/07/19 Findings: + NAD
--- NOTE | 2019-11-07 09:22 | XRay Report ---
XR chest Pre-admission PA/Lat CLINICAL HISTORY: pat preoperative COMPARISON STUDY: 01/09/2017 FINDINGS: The bones soft tissues and hemidiaphragms are normal. The cardiomediastinal silhouette is n ormal. The lungs are clear. The pulmonary vasculature is normal. IMPRESSION: Negative chest. ACT 112: Negative or not required by law. The above report was generated using voice recognition software. It may contain grammatical, syntax or spelling errors. Electronically signed by: Hiren Lemus M.D. 11/07/2019 9:20 AM
[2019-11-07 09:55] LABS: Basophils # (auto) 0.05 K/uL (0-0.2); Basophils % (auto) 0.7 %; Eosinophils % (auto) 10.2 %; Hematocrit (blood only) 42.4 % (37-47); Hemoglobin 14.1 g/dL (12.0-16.0); Immature Granulocytes # (auto) 0.01 K/uL (0.00-0.02); Immature Granulocytes % (auto) 0.1 %; Lymphocytes # (auto) 1.34 K/uL (1.2-3.4); Lymphocytes % (auto) 19.6 %; Mean Corpuscular Hgb Conc 33.3 g/dL (32-36); Mean Corpuscular Volume 93.2 fL (80-100); Mean Platelet Volume 9.9 fL (7.4-10.4); Monocytes # (auto) 0.74 K/uL (0.11-0.59); Monocytes % (auto) 10.8 %; Neutrophils # (auto) 4.01 K/uL (1.4-6.5); Neutrophils % (auto) 58.6 %; Platelet Count 301 K/uL (130-400); RDW Coefficient of Variation 13.4 % (11.5-14.5); RDW Standard Deviation 45.6 fL (36.4-46.3); Red Blood Count 4.55 M/uL (4.2-5.4); White Blood Count 6.85 K/uL (4.8-10.8)
[2019-11-07 10:11] LABS: Partial Thromboplastin Time 27.6 Seconds (21.0-31.0); Prothrombin Time 10.1 Seconds (9.0-12.0)
[2019-11-07 12:37] LABS: BUN Creatinine Ratio 21.5 (10-20); C Reactive Protein 1.42 mg/dl (0-0.29); Calcium 9.1 mg/dl (8.5-10.1); Creatinine Clr Calc Pharmacy 103.3 ml/min; Est GFR (African American) 92.1; Est GFR (Non-African American) 79.4; Potassium 4.6 mmol/L (3.5-5.1)
--- NOTE | 2019-11-07 13:59 | Electrocardiogram Report ---
Test Reason : Blood Pressure : / mmHG Vent. Rate : 066 BPM Atrial Rate : 066 BPM P-R Int : 136 ms QRS Dur : 088 ms QT Int : 416 ms P-R-T Axes : -27 058 049 degrees QTc Int : 436 ms Normal sinus rhythm Normal ECG When compared with ECG of 09-JAN-2017 21:17, No significant change was found Confirmed by Abran Shen ([id number]) on 11/07/2019 1:59:25 PM Referred By: Luis Antonio Puga Confirmed By:Abran Shen
--- NOTE | 2019-12-03 12:18 | History and Physical Report ---
DATE OF ADMISSION: 12/08/2019 CHIEF COMPLAINT: Left knee pain and discomfort. HISTORY OF PRESENT ILLNESS: A 59-year-old white female well known to me from a previous right knee replacement done almost 3-1/2 years ago. She has done well from this knee. She has a long history of left knee pain as well. She has been through extensive conservative treatment in the past which really has not helped at all. She had just been putting up with the pain. She has become more and more limited by her left knee. She has got global pain. It hurts all the time. The more she walks, the more it hurts and the more she limps. She has nighttime pain. She is not interested in further conservative care and would like to have her left knee replaced. PAST MEDICAL HISTORY: Significant for: 1. Hypertension. 2. Obesity with BMI of 57. PAST SURGICAL HISTORY: 1. Right total knee replacement done on 06/03/2016. 2. . ALLERGIES: None. CURRENT MEDICATIONS: Include 1. Unspecified blood pressure medicine. 2. Unspecified diuretic. 3. Multiple NSAIDS. SOCIAL HISTORY: A 59-year-old white female. She is . Two children. Lives in [place]. FAMILY HISTORY: Noncontributory. REVIEW OF SYSTEMS: Negative for diabetes, neurologic problem, vascular problems or bleeding disorders. No chest pain or shortness of breath. No history of DVT or PE. She is morbidly obese with a BMI of 57. PHYSICAL EXAMINATION: GENERAL: Shows a pleasant, middle-aged female. Looks to be in reasonably good health. HEENT: Benign. NECK: Supple, no lymphadenopathy. LUNGS: Clear to auscultation. HEART: Regular rate and rhythm. ABDOMEN: Soft, nontender, nondistended. EXTREMITIES: Grossly neurovascularly intact except as follows: Examination of both knees reveal patient walks with a bit of a waddling gait. Examination of the left knee reveals a large soft tissue envelope. She has got slight varus alignment to her knee. Small knee effusion. Diffuse tenderness around her knee. Range of motion is about 0-110. There is no instability. No pain with hip motion. Examination of the right knee reveals well-healed incision. Good straight leg raise. No instability. Range of motion 0-110. Neurologically intact. X-RAYS: X-rays of the left knee revealed advanced left knee DJD. She has got complete loss of medial joint space. She does have some subchondral sclerosis and some osteophytes in all 3 compartments. ASSESSMENT: A 59-year-old female with morbid obesity and hypertension, status post a right knee replacement 3-1/2 years ago with advanced left knee degenerative joint disease. She has failed all conservative care. She would like to have her left knee replaced. PLAN: We will take her to the operating room and do a left total knee replacement. The risks and benefits of this procedure were explained to the patient including but not limited to DVT, PE, , infection, neurological injury, vascular injury, bleeding problem, pain, limited range of motion, stiffness, failure to relieve her symptoms, incomplete relief of symptoms, need for further surgery in future, fracture, leg length inequality, nerve palsy, and loosening. I did tell her with her obesity, she is at increased risk of infection and she is aware of this. Based on her size and her bone density, we likely will use a stem in her tibia symptoms similar to the other side in order to decrease her risk of tibial loosening. As far as discharge plans, she is planning to be discharged to home using [facility] home health program and family assistance similar to last time. We did talk to her about taking her atenolol the morning of surgery.
[~2019-12-08 10:15] MED LIST changes: +ACETAMINOPHEN 500 MG TAB PO SCH; -ASPEC325 PO; -ASPI-390 PO; -ATEN50TA8 PO; +BUPIVACAINE 0.25% 30 ML VIAL ONE; +BUPIVACAINE 0.5 % 5 MG/1 ML PF 10ML VIAL ONE; +BUPIVACAINE LIPOSOME/PF 266 MG, BUPIVACAINE/EPINEPHRINE 50 ML, SODIUM CHLORIDE 0.9% 30 ... INFIL SCH; +CEFAZOLIN 3000MG 72.5 ML IV SCH; +FAMOTIDINE 20 MG TAB PO SCH; -FURO-85 PO; +GABAPENTIN 600 MG DOSE PO SCH; +LR 15ML/HR IV SCH; +LR 60ML/HR IV SCH; +METOCLOPRAMIDE HCL 10 MG TABLET PO SCH; -NAPR1TAB9 PO; +TRANEXAMIC ACID 1,000 MG **IV Intra-op IV SCH
--- NOTE | 2019-12-08 10:48 | History & Physical Bridge Note ---
Date of Service December 08, 2019 History & Physical Bridge Note I have examined the patient, reviewed the History & Physical and in the interval since the performance of the History & Physical I have noted the following changes of clinical significance: no changes noted
[2019-12-08] MEDS ORDERED: fentaNYL citrate 100 MCG/2 ML VIAL ONE (11:54)
[2019-12-08] MEDS ORDERED: MIDAZOLAM HCL 1 MG/ML 2ML VIAL ONE ×2 (11:54→13:46)
[2019-12-08] MEDS ORDERED: PROPOFOL IV EMULSION 10 MG/ML 20 ML VIAL IV ONE (12:31)
[2019-12-08] MEDS ORDERED: LIDOCAINE HCL 2% 2 ML VIAL/AMP(20MG/ML) INFIL ONE (12:31)
[2019-12-08] MEDS ORDERED: ePHEDrine sulfate 50 MG/ML SYR ONE (12:40)
[2019-12-08] MEDS ORDERED: SODIUM CHLORIDE 0.9% PF 50 ML VIAL ONE (12:44)
[2019-12-08] MEDS ORDERED: BUPIVACAINE 0.25% 30 ML VIAL ONE (12:44)
[2019-12-08] MEDS ORDERED: VANCOMYCIN HCL 1000MG/20ML VIAL ONE (12:44)
[2019-12-08] MEDS ORDERED: BUPIVACAINE LIPOSOME 1.3% 266 MG/20 ML VIAL ONE (12:44)
[2019-12-08] MEDS ORDERED: EPINEPHrine INJ 1 MG/ML AMP ONE (12:44)
[2019-12-08] MEDS ORDERED: BACITRACIN INJ 50,000 UNIT VIAL ONE (12:44)
[2019-12-08] MEDS ORDERED: ONDANSETRON INJ 2 MG/ML 2 ML VIAL ONE (13:43)
--- NOTE | 2019-12-08 15:25 | Post Operative Brief Note ---
PG Immediate Post Op with CF Date of Surgery December 08, 2019 Pre & Post Diagnosis Operation Date: 12/08/19 12:30 Pre-Op Diagnosis: Left Knee Degenerative Joint Disease Post-Op Diagnosis: Left Knee Degenerative Joint Disease I identified the patient and participated in the time-out.: Yes Procedure Operation Date: 12/08/19 12:30 Actual Procedures p Left Total Knee Arthroplasty(Left) - Luis Antonio Puga MD Surgeon Luis Antonio Puga MD Paper Reeler Jamila, PAC Estimated Blood Loss 50 Findings Consistent with Post-Op Diagnosis Fluids 1600 cc Specimens Specimen Description: A. Left knee bone and tissue. Drains [place] Catheter Anesthesia Type Spinal MAC Complications none Disposition Accompanied Patient To Recovery: No Disposition: Recovery Room
--- NOTE | 2019-12-08 15:48 | XRay Report ---
XR knee LT 1 or 2V routine CLINICAL HISTORY: Postoperative evaluation. COMPARISON: Knee radiographs March 13, 2016. FINDINGS: Alignment of the total left knee arthroplasty is anatomic. Longstem tibial component is no jorge. Hardware is intact. There is no periprosthetic fracture or unexpected radiopaque foreign body. T here are skin chester. IMPRESSION: Expected findings following total left knee arthroplasty. ACT 112: Negative or not required by law. Electronically signed by: Amol Griggs M.D. 12/08/2019 3:47 PM
--- NOTE | 2019-12-08 16:03 | Anesthesiology Progress Note ---
Date of Service December 08, 2019 Anesthesia Post Procedure Vital Signs Vital Signs: Temp Pulse Pulse Resp BP Pulse Ox 12/08/19 15:50 36.6 C 72 17 129/69 94 12/08/19 15:40 73 18 127/67 94 12/08/19 15:33 36.5 C 82 16 112/70 94 12/08/19 12:01 37 C 72 20 152/69 H 99 12/08/19 10:44 37 C 74 20 162/100 H 98 Transfer of Care Handoff Completed per policy Notes Mental Status: alert / awake / arousable and participated in evaluation Patient Amnestic to Procedure: Yes Nausea / Vomiting: adequately controlled Pain: adequately controlled Airway Patency, RR, SpO2: stable & adequate BP & HR: stable & adequate Hydration State: stable & adequate Anesthetic Complications: no major complications apparent and Pt Satisfied with anesthetic care
[2019-12-08] MEDS ORDERED: MAGNESIUM HYDROXIDE SUSP 30 ML UDC PO PRN (16:24)
[2019-12-08] MEDS ORDERED: ONDANSETRON INJ 2 MG/ML 2 ML VIAL IV PRN (16:24)
[2019-12-08] MEDS ORDERED: METOCLOPRAMIDE HCL INJ 5 MG/ML 2 ML VIAL IV PRN (16:24)
[2019-12-08] MEDS ORDERED: ALUMINUM/MAGNESIUM SUSP 30 ML UDC PO PRN (16:24)
[2019-12-08] MEDS ORDERED: bisacodyL 10 MG SUPP PR PRN (16:24)
[2019-12-08] MEDS ORDERED: NALOXONE HCL 0.4 MG/1 ML VIAL/CARP IV PRN (16:24)
[2019-12-08] MEDS: Scopolamine CHECK PATCH PLACEMENT SCH ×2 (16:34→23:40)
[2019-12-08] MEDS: SODIUM CHLORIDE 0.9% 1000ML 1,000 ML IV SCH (16:39)
[2019-12-08] MEDS: KETOROLAC 30 MG/ML VIAL IV SCH ×2 (17:04→22:35)
--- NOTE | 2019-12-08 17:26 | Operative Report ---
Post Operative Report Pre & Post Diagnosis Operation Date: 12/08/19 12:30 Pre-Op Diagnosis: Left Knee Degenerative Joint Disease Post-Op Diagnosis: Left Knee Degenerative Joint Disease I identified the patient and participated in the time-out.: Yes Procedure Operation Date: 12/08/19 12:30 Actual Procedures p Left Total Knee Arthroplasty(Left) - Luis Antonio Puga MD Surgeon Luis Antonio Puga MD [employer]ila, PAC Estimated Blood Loss 50 Findings Consistent with Post-Op Diagnosis Not a lot of eburnation.Operative findings revealed advanced left knee DJD. She had grade 4 changes in all 3 compartments. She did have a large knee joint effusion with a large Sorenson's cyst. Very large soft tissue envelope. BMI 57. Fluids 1600 cc. Specimens Left knee sent for pathology. Drains None. Anesthesia Type Spinal MAC Complications none Disposition Accompanied Patient To Recovery: No Disposition: Recovery Room Indications Patient is a 59-year-old morbidly obese female with a BMI 57 is had a long history of knee pain discomfort and disability. She underwent a right knee replacement 3 years ago and is done well from this. She continued be limited by left knee pain discomfort. She elected to see with total knee arthroplasty. She failed all conservative measures. Patient a BMI of 57. She is attempted to lose weight but unsuccessful. Her large size made this surgery extremely more difficult and it took about a heart twice as much time is a normal knee replacement in a patient of her situation. Description of Procedure Operative implants consist of: 1. Biomet Vanguard size 62.5 left posterior by femoral component. 2. Biomet size 63 tibial tray with an 80 x 11 mm offset stem with a 2.5 mm offset and a small cruciate wing. 3. 10 mm Po stabilized polyethylene insert. 4. 31 x 8 all poly-patella. Patient was taken to the operating room identified and placed on the operating table supine position protectors were properly padded. IV antibiotics arrived by anesthesia team. A spinal anesthetic and abductor canal block had provided in the holding area. Hollingsworth catheter was placed in sterile fashion a left thigh tourniquet was then placed. The left lower extremity was then prepped and draped in usual sterile fashion. The left leg was elevated exsanguinated with use of an Esmarch and turns placed at` 350 mmHg. An anterior approach to the left knee was then performed to longitudinal incision centered over the patella. Sharp dissection was got through subcutaneous tissue down below the extensor mechanism. A medial parapatellar arthrotomy incision was made. Some subperiosteal dissection was carried out medially. The fat pad was resected from each patella tendon. The patella was subluxated laterally and the knee was flexed. The osteophytes were taken off the distal femur. The ACL and PCL were then released from distal femur the tibia subluxate anteriorly. Due to her large size I elected to place a tibial stem. The tibial eminence was resected. I reamed down the canal with the canal finder and then reamed up to a size 11. Got LX excellent fit and with size 11. The intramedullary cutting guide was placed in the proximal tibial cut was made to move about 2 mm of bone from most efficient aspect medial till plateau. Tibia sized to a size 63. It was prepared for a 2.5 mm offset stem with a small cruciate wing. The trial implant was assembled in place and fit nicely. I did have to ream up to a 12 in order to get it down the safely. Attention drawn the femur. The distal femur was entered with a sharp drop with intramedullary canal was suction. A left 5 degree valgus cutting guide was placed. This femoral cutting block was pinned in place and distal femoral cut was made to take an additional 3 mm of bone off distal femur. The femur was then sized to a size 62.5. The AP cutting block was pinned parallel to the epicondylar axis which was 5 degrees external rotation. The anterior cut, anterior chamfer, posterior cut, posterior chamfer cuts were made. Box cutting guide was placed in just slight lateral box cut was made. The knee was flexed. The remnants of medial lateral menisci were excised. The osteophytes were taken off the posterior aspect the femur. A trial femoral component was placed. I then trialed the knee the 10 mm insert fit most appropriately. Attention drawn the patella. The patella was cleaned of all soft tissues. Patella thickness measured 22 mm in thickness was cut down to 13 but was sized to a size 31 patella. The lug holes were drilled for 31 patella. The lateral osteophyte was removed. The patella button was placed. Knee was taken through range of motion patella tracked nicely with no thumbs test. Attention drawn to placing the permanent components. All trial implants removed. Bone plug was placed in the distal femur limit blood loss put a double batch Palacos G cement was mixed. Biomet Vanguard size 62.5 left posterior by femoral component, a size 63 tibial tray with a 11 x 80 mm offset stem with a small cruciate wing, a 10 mm posterior box polyethylene insert, and a 31 x 8 all poly-patella were then cemented in place. I did add an additional gram of vancomycin to her cement due to her large size and increased risk for infection. The knee was brought out into full extension until cement hardened. Final cement check was performed. The pericapsular tissues were injected with total 100 cc of combination of 20 cc of Exparel, 30 cc normal saline, 50 cc of quarter percent Marcaine with epinephrine. Patient did receive 1 g tranexamic acid per the tech was then let down for final tourniquet time 78 minutes. Hemostasis assured use electrocautery. Extensor mechanism closed with combination 1 PDS suture and #1 Vicryl suture in [id number] fashion. Extensor mechanism checked found to be intact the subcutaneous tissue then closed with 2 Dexon suture in a buried interrupted fashion. Skin was closed with a combination of #1 Prolene sutures in a simple fashion along with some chester. I placed the sutures due to the very poor soft tissue quality and 1 to make sure we get good skin approximation. A sterile dressing composed Xeroform, 4 x 4's, sterile cast padding Yadiel bandage were applied. The patient was then transferred to the recovery room in stable condition. Patient tolerated procedure well and there were no complications. Trey Bang, my physician teacher's assistant, was present for the entire post procedure. His assistance was essential and required for appropriate patient positioning, prepping and draping, surgical exposure, performing the technical details of the operation, placing the implants, closure of the wound, and placement of the sterile bandage. I attest to the content of the Intraoperative Record and any orders documented therein. Any exceptions are noted below.
[2019-12-08] MEDS: ASCORBIC ACID 500 MG TAB PO SCH (17:33)
[2019-12-08] MEDS: FERROUS GLUCONATE 324 MG TAB PO SCH (17:33)
[2019-12-08] MEDS: OXYCODONE HCL IR 5 MG TAB (IMMEDIATE RELEASE) PO PRN (18:28)
[2019-12-08] MEDS: DOCUSATE SODIUM 100 MG CAP PO SCH (20:33)
[2019-12-08] MEDS: ASPIRIN 81 MG ECTAB PO SCH (20:33)
[2019-12-08] MEDS: SENNA 8.6 MG TAB PO SCH (20:33)
[2019-12-08] MEDS: TAPENTADOL HCL ER 50 MG TABCR PO SCH (20:33)
[2019-12-08] MEDS: CEFAZOLIN 2000MG 2,000 MG/15 ML SYR IV SCH (20:34)
[2019-12-08] MEDS: ACETAMINOPHEN 500 MG TAB PO SCH (21:02)
[2019-12-08] MEDS ORDERED: TRANEXAMIC ACID / 0.7% NACL 1,000 MG/100 ML BAG IV SCH (21:28)
[2019-12-08] MEDS: HYDROmorphone INJ 0.5 MG/0.5 ML SYR IV PRN (21:44)
[2019-12-09] MEDS: OXYCODONE HCL IR 5 MG TAB (IMMEDIATE RELEASE) PO PRN ×3 (00:31→16:19)
[2019-12-09] MEDS: SODIUM CHLORIDE 0.9% 1000ML 1,000 ML IV SCH (03:03)
[2019-12-09] MEDS: KETOROLAC 30 MG/ML VIAL IV SCH ×4 (04:07→22:12)
[2019-12-09] MEDS: CEFAZOLIN 2000MG 2,000 MG/15 ML SYR IV SCH (04:07)
[2019-12-09] MEDS: ACETAMINOPHEN 500 MG TAB PO SCH ×3 (05:21→22:12)
[2019-12-09] MEDS: HYDROmorphone INJ 0.5 MG/0.5 ML SYR IV PRN (05:37)
[2019-12-09 06:09] LABS: Hematocrit (blood only) 35.7 % (37-47); Hemoglobin 11.7 g/dL (12.0-16.0); Mean Corpuscular Hemoglobin 30.5 pg (25-34); Mean Corpuscular Hgb Conc 32.8 g/dL (32-36); Mean Corpuscular Volume 93.2 fL (80-100); Mean Platelet Volume 9.9 fL (7.4-10.4); Platelet Count 281 K/uL (130-400); RDW Coefficient of Variation 13.6 % (11.5-14.5); RDW Standard Deviation 46.3 fL (36.4-46.3); Red Blood Count 3.83 M/uL (4.2-5.4); White Blood Count 9.55 K/uL (4.8-10.8)
[2019-12-09 06:58] LABS: BUN Creatinine Ratio 18.6 (10-20); Calcium 8.3 mg/dl (8.5-10.1); Creatinine Clr Calc Pharmacy 88.6 ml/min; Est GFR (African American) 77.5; Est GFR (Non-African American) 66.9; Potassium 4.8 mmol/L (3.5-5.1)
--- NOTE | 2019-12-09 08:13 | Anesthesiology Progress Note ---
Date of Service December 09, 2019 Anesthesia Post Procedure Vital Signs Vital Signs: Temp Pulse Pulse Pulse Resp BP Pulse Ox 12/09/19 02:55 37.0 C 85 16 103/64 93 12/08/19 23:01 36.4 C L 83 16 121/68 95 12/08/19 19:32 36.6 C 73 18 151/84 H 97 12/08/19 18:16 36.4 C L 69 16 130/74 98 12/08/19 17:13 36.4 C L 64 16 135/79 97 12/08/19 16:45 68 18 150/76 H 98 12/08/19 16:15 36.5 C 70 18 136/74 97 12/08/19 16:00 36.6 C 70 11 L 130/67 96 12/08/19 15:50 36.6 C 72 17 129/69 94 12/08/19 15:40 73 18 127/67 94 12/08/19 15:33 36.5 C 82 16 112/70 94 12/08/19 12:01 37 C 72 20 152/69 H 99 12/08/19 10:44 37 C 74 20 162/100 H 98 Pain Intensity Left Knee: Pain Intensity: 6 Notes Mental Status: alert / awake / arousable and participated in evaluation Patient Amnestic to Procedure: Yes Nausea / Vomiting: adequately controlled Pain: adequately controlled Airway Patency, RR, SpO2: stable & adequate BP & HR: stable & adequate Hydration State: stable & adequate Neuraxial Anesthesia: was administered and sensory block resolved Anesthetic Complications: no major complications apparent and Pt Satisfied with anesthetic care
[2019-12-09] MEDS: TAPENTADOL HCL ER 50 MG TABCR PO SCH ×2 (08:26→20:25)
[2019-12-09] MEDS: ASPIRIN 81 MG ECTAB PO SCH ×2 (08:27→20:26)
[2019-12-09] MEDS: MULTIVITAMIN TAB PO SCH (08:27)
[2019-12-09] MEDS: ATENOLOL 50 MG TABLET PO SCH (08:27)
[2019-12-09] MEDS: Scopolamine CHECK PATCH PLACEMENT SCH ×2 (08:28→16:18)
[2019-12-09] MEDS: FERROUS GLUCONATE 324 MG TAB PO SCH ×2 (08:28→16:18)
[2019-12-09] MEDS: ASCORBIC ACID 500 MG TAB PO SCH ×2 (08:28→16:19)
[2019-12-09] MEDS: FUROSEMIDE 20 MG TAB PO SCH (08:28)
[2019-12-09] MEDS: DOCUSATE SODIUM 100 MG CAP PO SCH ×2 (08:29→20:26)
--- NOTE | 2019-12-09 08:39 | Progress Notes ---
DATE: 12/09/2019 SUBJECTIVE: A 59-year-old white female postop day 1 from a left knee replacement. She is doing pretty well. Pain is controlled. Had a pretty good night. Denies any chest pain or shortness of breath. OBJECTIVE: VITAL SIGNS: Temperature 37.0. Vital signs stable. GENERAL: Physical examination shows a pleasant, middle-aged female. She is lying in bed, looks quite comfortable. LUNGS: Clear to auscultation. HEART: Has a regular rate and rhythm. ABDOMEN: Soft, nontender, nondistended. EXTREMITIES: Grossly neurovascularly intact except as follows. Examination of the left lower extremity reveals the dressing to be clean, dry and intact. Leg is well aligned. Fairly large soft tissue envelope. She can dorsiflex and plantarflex her foot appropriately. She is neurologically intact. LABORATORY DATA: Hemoglobin 11.7. Hematocrit 35.7. Electrolytes are stable. ASSESSMENT: A 59-year-old white female postop day 1 from a left knee replacement, doing pretty well. Pain is controlled. She is neurologically intact. PLAN: 1. DVT prophylaxis including thigh-high TEDs, SCDs and aspirin twice a day. 2. PT/OT. Weightbear as tolerated. Left total knee protocol. 3. Pain control, doing okay with current pain regimen. 4. Disposition: She is planning to be discharged to home with some home health once adequately recovered. We will see how therapy goes today.
[2019-12-09] MEDS: SENNA 8.6 MG TAB PO SCH (20:25)
[2019-12-10] MEDS: Scopolamine CHECK PATCH PLACEMENT SCH ×2 (00:27→08:50)
[2019-12-10] MEDS: OXYCODONE HCL IR 5 MG TAB (IMMEDIATE RELEASE) PO PRN ×3 (03:30→13:10)
[2019-12-10] MEDS: KETOROLAC 30 MG/ML VIAL IV SCH ×2 (04:27→10:05)
[2019-12-10] MEDS: ACETAMINOPHEN 500 MG TAB PO SCH ×2 (06:03→13:14)
[2019-12-10] MEDS: FERROUS GLUCONATE 324 MG TAB PO SCH (08:41)
[2019-12-10] MEDS: MULTIVITAMIN TAB PO SCH (08:41)
[2019-12-10] MEDS: DOCUSATE SODIUM 100 MG CAP PO SCH (08:41)
[2019-12-10] MEDS: FUROSEMIDE 20 MG TAB PO SCH (08:42)
[2019-12-10] MEDS: ASPIRIN 81 MG ECTAB PO SCH (08:42)
[2019-12-10] MEDS: ATENOLOL 50 MG TABLET PO SCH (08:42)
[2019-12-10] MEDS: ASCORBIC ACID 500 MG TAB PO SCH (08:42)
[2019-12-10] MEDS: TAPENTADOL HCL ER 50 MG TABCR PO SCH (08:47)
--- NOTE | 2019-12-10 09:16 | Progress Notes ---
DATE: 12/10/2019 SUBJECTIVE: A 59-year-old white female postop day 2 from a left knee replacement. She is doing pretty well. Therapy went reasonably well. No chest pain or shortness of breath. Not feeling dizzy or lightheaded. OBJECTIVE: VITAL SIGNS: Temperature 36.7. Vital signs stable. GENERAL: Shows a pleasant, middle-aged female. She is lying in bed, looks reasonably comfortable. EXTREMITIES: Examination of the left leg reveals the dressing to be intact. Leg is well aligned. Large soft tissue envelope. No significant drainage. Calf is soft and supple. She is neurologically intact. ASSESSMENT: A 59-year-old white female postop day 2 from left knee replacement, doing reasonably well. Pain is controlled. She is neurologically intact. PLAN: 1. DVT prophylaxis including thigh-high TEDs, SCDs, and aspirin twice a day. 2. PT/OT. Weight bear as tolerated. Left total knee protocol. 3. Pain control, doing okay with current pain regimen. 4. Disposition: Plan to discharge to home with some home health later today.
--- NOTE | 2019-12-18 06:54 | Discharge Summary ---
Date of Service December 18, 2019 Admission HPI Per Admitting Provider Documented in the H & P Admission Exam (Per Admitting) Constitutional Documented in the H & P Discharge Data Consultations 12/08/19 16:24 Consult Case Management - Discharge Planning Routine Procedures Performed Operation Date: 12/08/19 12:30 Actual Procedures p Left Total Knee Arthroplasty(Left) - Luis Antonio Puga MD Hospital Course (1) Status post total left knee replacement: This patient is a 59 year old female admitted on 12/08/19 and underwent total knee replacement. She tolerated the procedure well and there were no complications. Transferred to the PACU post op and later to the orthopedic floor for further care. She was given ancef for antibiotic prophylaxis. She was also given PAULY stockings, SCDs, and aspirin for DVT prophylaxis. Hemoglobin, hematocrit, and vital signs were monitored during her hospital stay and remained stable. Did not require any blood transfusions. There were no complications during her hospital stay. By post op day #2 the patient was tolerating a regular diet, pain was reasonably controlled with oral pain medicine, and she was participating in physical therapy. On post op day #2 the patient was discharged home and set up with home health care. She was given printed discharge instructions including prescriptions for extra strength tylenol, aspirin, and oxycodone. Continue physical therapy, weight bearing as tolerated. Continue PAULY stockings. Follow up approximately 2 weeks post op or sooner if there are problems or concerns. Coding Level of Care Code None Diagnoses Status post total left knee replacement Z96.652
== END 2019-12-10 13:45 | disposition home health service (06) ==
LOC: 3E 10:15 → ASU 10:15

== ENCOUNTER 2021-02-14 11:55 | Inpatient (IN) ==
[2021-02-14 13:33] LABS: Basophils # (auto) 0.03 K/uL (0-0.2); Basophils % (auto) 0.2 %; Eosinophils # (auto) 0.03 K/uL (0-0.5); Eosinophils % (auto) 0.2 %; Hematocrit (blood only) 42.5 % (37-47); Hemoglobin 14.6 g/dL (12.0-16.0); Immature Granulocytes # (auto) 0.05 K/uL (0.00-0.02); Immature Granulocytes % (auto) 0.4 %; Lymphocytes # (auto) 1.35 K/uL (1.2-3.4); Lymphocytes % (auto) 10.1 %; Mean Corpuscular Hemoglobin 31.1 pg (25-34); Mean Corpuscular Hgb Conc 34.4 g/dL (32-36); Mean Corpuscular Volume 90.4 fL (80-100); Monocytes # (auto) 0.62 K/uL (0.11-0.59); Monocytes % (auto) 4.6 %; Neutrophils # (auto) 11.32 K/uL (1.4-6.5); Neutrophils % (auto) 84.5 %; Platelet Count 390 K/uL (130-400); RDW Coefficient of Variation 12.9 % (11.5-14.5); RDW Standard Deviation 42.8 fL (36.4-46.3)
[2021-02-14] MEDS ORDERED: HYDROmorphone INJ 0.5 MG/0.5 ML SYR IV STA ×2 (13:44→16:46)
[2021-02-14] MEDS ORDERED: ONDANSETRON INJ 2 MG/ML 2 ML VIAL IV STA ×2 (13:44→16:48)
[2021-02-14 13:47] LABS: Albumin Level 3.8 gm/dl (3.4-5.0); Calcium 9.4 mg/dl (8.5-10.1); Creatinine Clr Calc Pharmacy 81.8 ml/min; Est GFR (African American) 70.6 ml/min; Est GFR (Non-African American) 60.9 ml/min; Potassium 4.3 mmol/L (3.5-5.1)
--- NOTE | 2021-02-14 13:49 | Emergency Department Note ---
Impression & Plan Acute cholecystitis ED Provider Note Name: DEVON ELDER Age: 60 Sex: F Arrives Via: Walk-In Informant: Patient ED Provider: Thony Lux MD Chief Complaint: RUQ pain Impression: Acute Cholecystitis Medical Decision Makin yr old female with history HTN and obesity arrives for evaluation of RUQ pain on and off over the last month. Sent in by PCP after being given toradol & zofran. TTP RUQ and given history US obtained without clear etiology of pain. Given continued discomfort in setting mildly elevated wbc CT a/p with iv contrast obtained. This reveals acute cholecystitis. Mefoxin IV given. Gen Surg evaluated patient and will take to OR in am. Hospitalist consulted for further management. Patient stable and pain controlled with IV narcotic. Prior Medical Record and Triage/Nursing Notes reviewed by Me Additional history obtained from chart Differentials:Cholecystitis, Biliary Dysfunction, Renal colic, pyelonephritis, PUD/GERD/Gastritis, appendicitis, acs, pe, dissection, diverticulitis amongst other pathologies. Vital Signs: reviewed and remarkable for no significant abnormalities Interventions: See Below Labs:Reviewed and remarkable for no significant abnormalities Imaging:See Below EKG:Per My Interpretation: Indication RUQ pain/pre-op: NSR 78 bpm, qtc 456. No Ectopy. No Ischemia. Compared to EKG 11/07/19, no significant changes other than new EKG with poor lateral baseline Consults:Екатерина Gen Surg and Hospitalist Plan: Disposition:Hospitalization. Condition: [Good] History of Present Illness:60 yr old female arrives for evaluation of RUQ pain. Notes several months of on and off right upper abdominal pain. Comes and goes sometimes severe before resolving. Last night at 2am severe pain which awoke her. RUQ radiates to right back. Associated nausea, vomiting, and dry heaves. Following vomiting had some bilateral upper abdominal pain and some right chest pain. No fevers, chills, syncope, urinary/bowel symptoms, sob, headache, neck pain, leg swelling beyond baseline, rashes, nor other symptoms. No trauma, injuries, falls. Movement makes worse, rest makes better. Seen by PCP who gave her IM Toradol, ODT Zofran and sent her to ED for evaluation. ROS: See above HPI for pertinent positives & negatives. A total of 10 systems reviewed and were otherwise negative. 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 Home Medications:BP Med, Fluid Pill, ASA 81mg daily Allergies:None Vitals:Blood Pressure: 171/89, Pulse 85, RR 18, T 36.4C, O2 98% on RA Physical Exam: GENERAL: Patient is uncomfortable appearing and in mild distress. EYES: No scleral icterus, unremarkable pupils. ENT: Mucous membranes moist, no nasal congestion. NECK: No masses appreciated, nomeningismus, trachea is midline. RESPIRATORY: No dyspnea. Clear to auscultation and equal bilaterally. No wheeze, no rhonchi. CARDIOVASCULAR: Regular rate and rhythm.No murmurs, rubs, gallops appreciated. GASTROINTESTINAL: TTP RUQ, otherwise abdomen soft, non-tender, no peritonitis.Bowel sounds positive.No masses appreciated. BACK: No midline tenderness, no CVA tenderness EXTREMITIES: Normal motion all extremities, no cyanosis, no edema. NEUROLOGIC: Alert and oriented, no acute motor or sensory deficits, no focal weakness, cranial nerves grossly intact. SKIN: No rash, no jaundice, no diaphoresis. PSYCH: Appropriate GCS: 15 ED Course: Times/Reassessments: stable, looks well, pain controlled on repeat dosing Thony Lux MD Past Med/Surg History Medical History Hypertension Morbid obesity Osteoarthritis Surgical History History of section History of D&C History of right knee joint replacement History of wisdom tooth extraction Nausea and vomiting after administration of anesthetic agent Family History Mother PONV (postoperative nausea and vomiting) Social History Smoking Status: Never smoker Second Hand Exposure: No; Do You Dip or Chew Tobacco: No; Hx Alcohol Use: Yes Alcohol type: beer Hx Substance Use: No Preferred Language: Mauritian Communication Ability: Effective Environmental Issues Instructor Required: No Beliefs That Will Affect Care: None marital status: Current Living Situation: Spouse and Family Other Information That Helps Us Care for You: No Feels Safe at Home: Yes Safety Concerns: Feels Safe At This Time Assistive Devices: None Allergies Allergies Allergy/AdvReac Type Severity Reaction Status Date / Time No Known Allergies Allergy Unverified 12/08/19 10:30 Home Meds Home Medications Medication Instructions Recorded Confirmed aspirin 81 mg tablet,delayed 81 mg PO QAM 11/01/19 02/14/21 release atenolol 50 mg tablet (Tenormin) 50 mg PO QAM 11/01/19 02/14/21 furosemide 20 mg tablet 20 mg PO QAM 11/01/19 02/14/21 acetaminophen 500 mg tablet 1,000 mg PO Q6H PRN 12/08/19 02/14/21 (Tylenol Extra Strength) ibuprofen 200 mg tablet 600 mg PO Q6H PRN 12/08/19 02/14/21 amoxicillin 500 mg capsule 500 mg PO DAILY 02/14/21 02/14/21 Previous Rx's Medication Instructions Recorded diclofenac sodium 50 mg 50 mg PO BID #60 tab 01/20/20 tablet,delayed release Results & Data (ED) Vital Signs Vital Signs - 24 hr 02/14/21 12:00 02/14/21 14:27 02/14/21 14:31 Temperature 36.4 C L Temperature Source Temporal Artery Scan Pulse Rate 85 80 Pulse Rate from SpO2 Sensor Respiratory Rate 18 17 13 Blood Pressure 171/89 H 190/95 H Blood Pressure Mean 116 126 Blood Pressure Position Sitting Pulse Oximetry 98 98 Oxygen Delivery Method Room Air Room Air Sepsis Recent Fever Within 48 Hours No Sepsis New/Unexplained Change in Mental Status No Sepsis Action Taken by Nursing No Action Required 02/14/21 18:00 02/14/21 18:30 Temperature Temperature Source Pulse Rate 73 67 Pulse Rate from SpO2 Sensor 72 66 Respiratory Rate 16 16 Blood Pressure 175/92 H Blood Pressure Mean 119 Blood Pressure Position Pulse Oximetry 99 95 Oxygen Delivery Method Sepsis Recent Fever Within 48 Hours Sepsis New/Unexplained Change in Mental Status Sepsis Action Taken by Nursing Laboratory Data Result diagrams: 02/14/21 13:03 02/14/21 13:03 Lab Results 02/14/21 02/14/21 02/14/21 Range/Units 12:05 12:06 13:03 WBC 13.40 H (4.8-10.8) K/uL RBC 4.70 (4.2-5.4) M/uL Hgb 14.6 (12.0-16.0) g/dL Hct 42.5 (37-47) % MCV 90.4 (80-100) fL MCH 31.1 (25-34) pg MCHC 34.4 (32-36) g/dL RDW Std Deviation 42.8 (36.4-46.3) fL RDW Coeff of Sarika 12.9 (11.5-14.5) % Plt Count 390 (130-400) K/uL MPV 10.0 (7.4-10.4) fL Immature Gran % (Auto) 0.4 % Neut % (Auto) 84.5 % Lymph % (Auto) 10.1 % [place] % (Auto) 4.6 % Eos % (Auto) 0.2 % Baso % (Auto) 0.2 % Neut # (Auto) 11.32 H (1.4-6.5) K/uL Lymph # (Auto) 1.35 (1.2-3.4) K/uL [place] # (Auto) 0.62 H (0.11-0.59) K/uL Eos # (Auto) 0.03 (0-0.5) K/uL Baso # (Auto) 0.03 (0-0.2) K/uL Immature Gran # (Auto) 0.05 H (0.00-0.02) K/uL Sodium (136-145) mmol/L Potassium (3.5-5.1) mmol/L Chloride (98-107) mmol/L Carbon Dioxide (21-32) mmol/L Anion Gap (3-11) BUN (7-18) mg/dl Creatinine (0.6-1.2) mg/dl Est Cr Clr Drug Dosing ml/min Est GFR ( Amer) ml/min Est GFR (Non-Af Amer) ml/min BUN/Creatinine Ratio (10-20) Glucose (70-99) mg/dl Estimat Average Glucose 123 mg/dl Hemoglobin A1c 5.9 H (4.5-5.6) % Calcium (8.5-10.1) mg/dl Total Bilirubin (0.2-1) mg/dl AST (15-37) U/L ALT (12-78) U/L Alkaline Phosphatase (45-117) U/L Troponin I < 0.015 (0-0.045) ng/ml Total Protein (6.4-8.2) gm/dl Albumin (3.4-5.0) gm/dl Globulin (2.5-4.0) gm/dl Albumin/Globulin Ratio (0.9-2) Lipase (73-393) U/L Urine Color Urine Appearance (Clear) Urine pH (4.5-7.5) Ur Specific Cable (1.000-1.030) Urine Protein (Negative) Urine Glucose (UA) (Negative) Urine Ketones (Negative) Urine Blood (Negative) Urine Nitrite (Negative) Urine Bilirubin (Negative) Urine Urobilinogen (Negative) Ur Leukocyte Esterase (Negative) COVID-19 Eval Order SARS-CoV-2 (PCR) (Negative) 02/14/21 02/14/21 02/14/21 Range/Units 13:03 14:17 14:32 WBC (4.8-10.8) K/uL RBC (4.2-5.4) M/uL Hgb (12.0-16.0) g/dL Hct (37-47) % MCV (80-100) fL MCH (25-34) pg MCHC (32-36) g/dL RDW Std Deviation (36.4-46.3) fL RDW Coeff of Sarika (11.5-14.5) % Plt Count (130-400) K/uL MPV (7.4-10.4) fL Immature Gran % (Auto) % Neut % (Auto) % Lymph % (Auto) % [place] % (Auto) % Eos % (Auto) % Baso % (Auto) % Neut # (Auto) (1.4-6.5) K/uL Lymph # (Auto) (1.2-3.4) K/uL [place] # (Auto) (0.11-0.59) K/uL Eos # (Auto) (0-0.5) K/uL Baso # (Auto) (0-0.2) K/uL Immature Gran # (Auto) (0.00-0.02) K/uL Sodium 135 L (136-145) mmol/L Potassium 4.3 (3.5-5.1) mmol/L Chloride 102 (98-107) mmol/L Carbon Dioxide 27 (21-32) mmol/L Anion Gap 6.0 (3-11) BUN 17 (7-18) mg/dl Creatinine 1.01 (0.6-1.2) mg/dl Est Cr Clr Drug Dosing 81.8 ml/min Est GFR ( Amer) 70.6 ml/min Est GFR (Non-Af Amer) 60.9 ml/min BUN/Creatinine Ratio 17.0 (10-20) Glucose 127 H (70-99) mg/dl Estimat Average Glucose mg/dl Hemoglobin A1c (4.5-5.6) % Calcium 9.4 (8.5-10.1) mg/dl Total Bilirubin 0.5 (0.2-1) mg/dl AST 19 (15-37) U/L ALT 35 (12-78) U/L Alkaline Phosphatase 98 (45-117) U/L Troponin I (0-0.045) ng/ml Total Protein 7.8 (6.4-8.2) gm/dl Albumin 3.8 (3.4-5.0) gm/dl Globulin 4.0 (2.5-4.0) gm/dl Albumin/Globulin Ratio 1.0 (0.9-2) Lipase 132 (73-393) U/L Urine Color Yellow Urine Appearance Clear (Clear) Urine pH 5.0 (4.5-7.5) Ur Specific Cable 1.017 (1.000-1.030) Urine Protein Negative (Negative) Urine Glucose (UA) Negative (Negative) Urine Ketones Negative (Negative) Urine Blood Negative (Negative) Urine Nitrite Negative (Negative) Urine Bilirubin Negative (Negative) Urine Urobilinogen Negative (Negative) Ur Leukocyte Esterase Negative (Negative) COVID-19 Eval Order Covid19 at [facility] SARS-CoV-2 (PCR) (Negative) 02/14/21 Range/Units 14:32 WBC (4.8-10.8) K/uL RBC (4.2-5.4) M/uL Hgb (12.0-16.0) g/dL Hct (37-47) % MCV (80-100) fL MCH (25-34) pg MCHC (32-36) g/dL RDW Std Deviation (36.4-46.3) fL RDW Coeff of Sarika (11.5-14.5) % Plt Count (130-400) K/uL MPV (7.4-10.4) fL Immature Gran % (Auto) % Neut % (Auto) % Lymph % (Auto) % [place] % (Auto) % Eos % (Auto) % Baso % (Auto) % Neut # (Auto) (1.4-6.5) K/uL Lymph # (Auto) (1.2-3.4) K/uL [place] # (Auto) (0.11-0.59) K/uL Eos # (Auto) (0-0.5) K/uL Baso # (Auto) (0-0.2) K/uL Immature Gran # (Auto) (0.00-0.02) K/uL Sodium (136-145) mmol/L Potassium (3.5-5.1) mmol/L Chloride (98-107) mmol/L Carbon Dioxide (21-32) mmol/L Anion Gap (3-11) BUN (7-18) mg/dl Creatinine (0.6-1.2) mg/dl Est Cr Clr Drug Dosing ml/min Est GFR ( Amer) ml/min Est GFR (Non-Af Amer) ml/min BUN/Creatinine Ratio (10-20) Glucose (70-99) mg/dl Estimat Average Glucose mg/dl Hemoglobin A1c (4.5-5.6) % Calcium (8.5-10.1) mg/dl Total Bilirubin (0.2-1) mg/dl AST (15-37) U/L ALT (12-78) U/L Alkaline Phosphatase (45-117) U/L Troponin I (0-0.045) ng/ml Total Protein (6.4-8.2) gm/dl Albumin (3.4-5.0) gm/dl Globulin (2.5-4.0) gm/dl Albumin/Globulin Ratio (0.9-2) Lipase (73-393) U/L Urine Color Urine Appearance (Clear) Urine pH (4.5-7.5) Ur Specific Cable (1.000-1.030) Urine Protein (Negative) Urine Glucose (UA) (Negative) Urine Ketones (Negative) Urine Blood (Negative) Urine Nitrite (Negative) Urine Bilirubin (Negative) Urine Urobilinogen (Negative) Ur Leukocyte Esterase (Negative) COVID-19 Eval Order SARS-CoV-2 (PCR) NEGATIVE (Negative) Administered Medications Diclofenac Sodium (Diclofenac Sod 1% Gel 100 Gm Tube) 2 gm EXT TID [facility] Stop: 03/16/21 21:59 Last Admin: 02/15/21 00:13 Dose: 2 gm Documented by: [id number] Pantoprazole Sodium 40 mg/ (Syringe) 10 mls @ 5 mls/min IV BID [facility] Stop: 03/16/21 21:59 Last Admin: 02/15/21 00:05 Dose: 5 mls/min Documented by: [id number] Piperacillin Sod/Tazobactam (Sod 4.5 gm/ Dextrose) 120 mls @ 30 mls/hr IV Q8H [facility]; Protocol Stop: 02/25/21 03:59 Last Infusion: 02/15/21 09:24 Dose: 0 mls/hr Documented by: [id number] Infusion: 02/15/21 06:41 Dose: 30 mls/hr Documented by: [id number] Admin: 02/15/21 04:09 Dose: 30 mls/hr Documented by: [id number] Morphine Sulfate (Morphine Sulfate 4 Mg/Ml 1 Ml Carp\Vial) 4 mg IV Q4H PRN PRN Reason: severe pain Stop: 02/28/21 18:51 Last Admin: 02/15/21 04:27 Dose: 4 mg Documented by: [id number] Admin: 02/14/21 22:33 Dose: 4 mg Documented by: [id number] Ondansetron HCl (Ondansetron Inj 2 Mg/Ml 2 Ml Vial) 4 mg IV Q6H PRN PRN Reason: Nausea Stop: 03/16/21 21:47 Last Admin: 02/15/21 04:27 Dose: 4 mg Documented by: [id number] Admin: 02/14/21 22:36 Dose: 4 mg Documented by: [id number] Discontinued Medications Bacitracin (Bacitracin Oint 15 Gm Tube) Confirm Administered Dose 45 appln .ROUTE .STK-MED ONE Stop: 02/15/21 07:08 Last Admin: 02/15/21 08:02 Dose: 45 appln Documented by: [id number] Bupivacaine HCl (Bupivacaine 0.5 % 5 Mg/1 Ml Mpf 30ml Vial) Confirm Administered Dose 30 ml .ROUTE .STK-MED ONE Stop: 02/15/21 07:07 Last Admin: 02/15/21 08:02 Dose: 20 ml Documented by: [id number] Fentanyl Citrate (Fentanyl Citrate 100 Mcg/2 Ml Vial) 25 mcg IV Q5M PRN PRN Reason: PACU Use Only-Pain Stop: 02/15/21 15:38 Last Admin: 02/15/21 10:05 Dose: 25 mcg Documented by: [id number] Hydromorphone HCl (Hydromorphone Inj 0.5 Mg/0.5 Ml Syr) 0.5 mg IV NOW STA Stop: 02/14/21 13:45 Last Admin: 02/14/21 14:10 Dose: 0.5 mg Documented by: [id number] Hydromorphone HCl (Hydromorphone Inj 0.5 Mg/0.5 Ml Syr) 0.5 mg IV NOW STA Stop: 02/14/21 16:47 Last Admin: 02/14/21 17:23 Dose: 0.5 mg Documented by: [id number] Cefoxitin Sodium (Mefoxin) 2,000 mg in 60 mls @ 100 mls/hr IV NOW STA Stop: 02/14/21 18:14 Last Infusion: 02/14/21 18:43 Dose: 0 mls/hr Documented by: [id number] Admin: 02/14/21 18:01 Dose: 100 mls/hr Documented by: [id number] Lactated Ringer's (Lr) 1,000 mls @ 125 mls/hr IV .Q8H [facility] Stop: 03/16/21 21:59 Last Infusion: 02/15/21 07:13 Dose: 0 mls/hr Documented by: [id number] Infusion: 02/15/21 06:41 Dose: 125 mls/hr Documented by: [id number] Admin: 02/15/21 00:05 Dose: 125 mls/hr Documented by: [id number] Piperacillin Sod/Tazobactam (Sod 4.5 gm/ Dextrose) 120 mls @ 200 mls/hr IV NOW ONE; Protocol Stop: 02/14/21 22:35 Last Infusion: 02/15/21 00:59 Dose: 0 mls/hr Documented by: [id number] Admin: 02/15/21 00:02 Dose: 200 mls/hr Documented by: [id number] Ioversol (Optiray 320 125ml) 116 ml IV ONCE ONE Stop: 02/14/21 17:12 Last Admin: 02/14/21 17:12 Dose: 116 ml Documented by: [id number] Lidocaine HCl (Lidocaine 1% Local 20 Ml Vial) Confirm Administered Dose 20 ml .ROUTE .STK-MED ONE Stop: 02/15/21 07:07 Last Admin: 02/15/21 08:02 Dose: 20 ml Documented by: [id number] Ondansetron HCl (Ondansetron Inj 2 Mg/Ml 2 Ml Vial) 4 mg IV NOW STA Stop: 02/14/21 13:45 Last Admin: 02/14/21 14:10 Dose: 4 mg Documented by: [id number] Ondansetron HCl (Ondansetron Inj 2 Mg/Ml 2 Ml Vial) 4 mg IV NOW STA Stop: 02/14/21 16:49 Last Admin: 02/14/21 17:24 Dose: 4 mg Documented by: [id number] Imaging Data Radiologist's Impression: Abdomen/Pelvis CT 02/14/21 16:[address] WITH IV CONTRAST CT DOSE: 1935.82 mGy.cm HISTORY: Acute generalized abdominal pain with nausea intractable abdominal pain TECHNIQUE: Multiaxial CT images of the abdomen and pelvis were performed following the IV administration of 116 cc of Optiray, A dose lowering technique was utilized adhering to the principles of ALARA. COMPARISON STUDY: Right upper quadrant abdominal ultrasound 02/14/2021 FINDINGS: Coronary artery calcifications. Mild subsegmental bibasilar atelectasis. 4 mm fissural nodule of the right middle lobe on image 20 series 3 is suggestive of a probable lymph node. No pneumatosis or pneumoperitoneum. Unremarkable spleen. The pancreas and adrenal glands are unremarkable. Hepatic steatosis. No evidence of cirrhosis. Patent portal vein. Mild gallbladder distention with pericholecystic stranding and mild gallbladder wall thickening. Prominent and mildly enlarged periportal and precaval lymph nodes measure up to 12 mm. Additional enlarged retroperitoneal lymph nodes measure up to 11 mm the periaortic distribution.Enlarged iliac chain lymph nodes measure up to 1.7 cm on the right. 2.3 cm left pelvic sidewall lymph node on image 380. Right inguinal chain lymph node measures 1.4 cm. Moderate atherosclerosis of the aorta. Unremarkable kidneys. No hydronephrosis decompressed urinary bladder. Small cystic foci of the ovaries measure up to 2.4 cm on the right, nonspecific. Unremarkable uterus. No bowel obstruction or bowel wall thickening. Normal appendix. No ascites or mesenteric inflammation. Tiny fat filled periumbilical hernia. No acute fracture or suspicious bone lesion. Lower lumbar facet arthrosis. IMPRESSION: 1. Distended gallbladder with mild wall thickening and pericholecystic fluid is suspicious for acute cholecystitis. 2. The biliary ductal dilation and questioned choledocholithiasis described on the same day ultrasound is not identified by CT. 3. No bowel obstruction or bowel wall thickening. Normal appendix. 4. Enlarged periportal, pericaval, periaortic, iliac chain, pelvic and inguinal adenopathy is suspicious for a lymphoproliferative disorder. 5. Hepatic steatosis. ACT 112: Negative or not required by law. The above report was generated using voice recognition software. It may contain grammatical, syntax or spelling errors. Electronically signed by: Rosas Street M.D. 02/14/2021 5:33 PM Discharge Plan Visit Data Chief Complaint: Abdominal Pain Stated Complaint: UPPER ABD PAIN,NAUSEA, ED Provider: Thony Lux Discharge Problem: Acute cholecystitis Patient Disposition: Admitted As Inpatient Discharge Instructions Interventions: ED Discharge Assessment Last Done: 02/14/21 21:14
[2021-02-14 13:50] LABS: Bilirubin,Total 0.5 mg/dl (0.2-1); Total Protein 7.8 gm/dl (6.4-8.2)
[2021-02-14 14:43] LABS: Appearance Urine Clear (Clear); Bilirubin Urine Negative (Negative); Blood Urine Negative (Negative); Color Urine Yellow; Glucose Urine UA Negative (Negative); Ketones Urine Negative (Negative); Leukocyte Esterase Urine Negative (Negative); Nitrite Urine Negative (Negative); Protein Urine Negative (Negative); Specific Gravity Urine 1.017 (1.000-1.030); Urobilinogen Urine Negative (Negative)
--- NOTE | 2021-02-14 16:00 | Electrocardiogram Report ---
Test Reason : Blood Pressure : / mmHG Vent. Rate : 078 BPM Atrial Rate : 078 BPM P-R Int : 160 ms QRS Dur : 088 ms QT Int : 400 ms P-R-T Axes : 064 015 040 degrees QTc Int : 456 ms Normal sinus rhythm When compared with ECG of 07-NOV-2019 08:48, No significant change was found Confirmed by Castillo Ackerman ([id number]) on 02/14/2021 4:00:20 PM Referred By: Charlotte Diamond Confirmed By:Catracho Ackerman
--- NOTE | 2021-02-14 16:12 | Ultrasound Report ---
US gallbladder HISTORY: 60 years-old Female RUQ pain acute right upper quadrant abdominal pain COMPARISON: None TECHNIQUE: Multiple real-time sonographic images of the abdominal right upper quadrant were obtained assessing grayscale appearance and color flow FINDINGS: The pancreas is obscured by bowel gas. The liver measures up to 17 cm in length and is echogenic. Sha dowing cholelithiasis. The gallbladder wall is thickened measuring up to 6 mm. No pericholecystic flu id. Sonographic Shields sign reported as negative. Common bile duct is mildly dilated at 8 mm. Questio gamaliel echogenic focus within the common bile duct on image 38. The imaged right kidney is unremarkable without hydronephrosis. IMPRESSION: 1. Cholelithiasis with mild nonspecific gallbladder wall thickening. No pericholecystic fluid. The so nographic Shields sign was reported as negative. These findings could be correlated with nuclear medic ine hepatobiliary scan to exclude developing acute cholecystitis. 2. Mild biliary ductal dilation with questioned choledocholithiasis. Correlate with serum bilirubin l evel. 3. Hepatic steatosis. ACT 112: Negative or not required by law. The above report was generated using voice recognition software. It may contain grammatical, syntax o r spelling errors. Electronically signed by: Rosas Street M.D. 02/14/2021 4:11 PM
[2021-02-14] MEDS ORDERED: OPTIRAY 320 125ml IV ONE (17:11)
--- NOTE | 2021-02-14 17:34 | CT Scan Report ---
ABDOMEN AND PELVIS CT WITH IV CONTRAST CT DOSE: 1935.82 mGy.cm HISTORY: Acute generalized abdominal pain with nausea intractable abdominal pain TECHNIQUE: Multiaxial CT images of the abdomen and pelvis were performed following the IV administrat ion of 116 cc of Optiray, A dose lowering technique was utilized adhering to the principles of ALARA . COMPARISON STUDY: Right upper quadrant abdominal ultrasound 02/14/2021 FINDINGS: Coronary artery calcifications. Mild subsegmental bibasilar atelectasis. 4 mm fissural nodu le of the right middle lobe on image 20 series 3 is suggestive of a probable lymph node. No pneumatos is or pneumoperitoneum. Unremarkable spleen. The pancreas and adrenal glands are unremarkable. Hepati c steatosis. No evidence of cirrhosis. Patent portal vein. Mild gallbladder distention with perichole cystic stranding and mild gallbladder wall thickening. Prominent and mildly enlarged periportal and precaval lymph nodes measure up to 12 mm. Additional enl arged retroperitoneal lymph nodes measure up to 11 mm the periaortic distribution.Enlarged iliac ayla n lymph nodes measure up to 1.7 cm on the right. 2.3 cm left pelvic sidewall lymph node on image 380. Right inguinal chain lymph node measures 1.4 cm. Moderate atherosclerosis of the aorta. Unremarkable kidneys. No hydronephrosis decompressed urinary bladder. Small cystic foci of the ovaries measure up to 2.4 cm on the right, nonspecific. Unremarkable uterus. No bowel obstruction or bowel wall thickening. Normal appendix. No ascites or mesenteric inflammation . Tiny fat filled periumbilical hernia. No acute fracture or suspicious bone lesion. Lower lumbar fac et arthrosis. IMPRESSION: 1. Distended gallbladder with mild wall thickening and pericholecystic fluid is suspicious for acute cholecystitis. 2. The biliary ductal dilation and questioned choledocholithiasis described on the same day ultrasoun d is not identified by CT. 3. No bowel obstruction or bowel wall thickening. Normal appendix. 4. Enlarged periportal, pericaval, periaortic, iliac chain, pelvic and inguinal adenopathy is suspici ous for a lymphoproliferative disorder. 5. Hepatic steatosis. ACT 112: Negative or not required by law. The above report was generated using voice recognition software. It may contain grammatical, syntax o r spelling errors. Electronically signed by: Rosas Street M.D. 02/14/2021 5:33 PM
[2021-02-14] MEDS ORDERED: cefOXitin 2,000 MG/60 ML BAG IV STA (17:39)
--- NOTE | 2021-02-14 18:01 | XRay Report ---
XR chest 1V portable HISTORY: 60 years-old Female pre-op preoperative exam. No acute chest complaints. COMPARISON: CT abdomen and pelvis of same day, chest radiograph 11/07/2019 TECHNIQUE: Portable AP view of the chest FINDINGS: Cardiac silhouette is mildly enlarged. Mild coarsening of interstitium is likely secondary to patient body habitus. Minimal subsegmental bibasilar atelectasis without pneumothorax, pleural effusion, ove rt pulmonary edema or lobar airspace consolidation. Mild right hemidiaphragmatic elevation. Degenerat nae changes of the shoulders and spine. IMPRESSION: No acute process. ACT 112: Negative or not required by law. The above report was generated using voice recognition software. It may contain grammatical, syntax o r spelling errors. Electronically signed by: Rosas Street M.D. 02/14/2021 5:59 PM
--- NOTE | 2021-02-14 18:08 | Surgery Consultation ---
Date of Consultation February 14, 2021 Assessment & Plan (1) Acute cholecystitis due to biliary calculus: pt is a 60 year-old female who presents to ER with acute RUQ pain, with nausea and vomiting, IMP: acute cholecystitis, cholelithiasis, Plan, please let Hospitalist admit pt to hospital, NPO after MN, IV fluid, antibiotic, control pain, repeat labs in morning, I recommend to do laparoscopic cholecystectomy, possible open or cholangiogram tomorrow, D/W benefits, risks and alternatives of the surgery, the risks - infection, bleeding injury other organs, may need ERCP, incisional hernia, CO, DVT, stroke, , pt understood, she agrees with surgery and the plan, I answered all questions, D/W ER attending, History of Present Illness Reason for Consultation: acute cholecystitis Requesting Physician: Thony Jolley History of Present Illness History of Present Illness:60 yr old female arrives for evaluation of RUQ pain. Notes several months of on and off right upper abdominal pain. Comes and goes sometimes severe before resolving. Last night at 2am severe pain which awoke her. RUQ radiates to right back. Associated nausea, vomiting, and dry heaves. Following vomiting had some bilateral upper abdominal pain and some right chest pain. No fevers, chills, syncope, urinary/bowel symptoms, sob, headache, neck pain, leg swelling beyond baseline, rashes, nor other symptoms. No trauma, injuries, falls. Movement makes worse, rest makes better. Seen by PCP who gave her IM Toradol, ODT Zofran and sent her to ED for evaluation. I ( Maral Lama MD ) got a call for consult acute cholecystitis, I reviewed pt's H/P, labs, U/S study and CT scan with pt, ROS: See above HPI for pertinent positives & negatives. A total of 10 systems reviewed and were otherwise negative. 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 Home Medications:BP Med, Fluid Pill, ASA 81mg daily Allergies:None Allergies Allergy/AdvReac Type Severity Reaction Status Date / Time No Known Allergies Allergy Unverified 12/08/19 10:30 Home Medications Medication Instructions Recorded Confirmed Type aspirin 81 mg tablet,delayed 81 mg PO QAM 11/01/19 02/14/21 History release atenolol 50 mg tablet (Tenormin) 50 mg PO QAM 11/01/19 02/14/21 History furosemide 20 mg tablet 20 mg PO QAM 11/01/19 02/14/21 History acetaminophen 500 mg tablet 1,000 mg PO Q6H PRN 12/08/19 02/14/21 History (Tylenol Extra Strength) ibuprofen 200 mg tablet 600 mg PO Q6H PRN 12/08/19 02/14/21 History diclofenac sodium 50 mg 50 mg PO BID #60 tab 01/20/20 02/14/21 Rx tablet,delayed release amoxicillin 500 mg capsule 500 mg PO DAILY 02/14/21 02/14/21 History Patient History Medical History (Updated 02/14/21 @ 18:15 by Maral Lama MD) Hypertension Morbid obesity Osteoarthritis Surgical History (Updated 12/18/19 @ 06:52 by Miguel Ángel Marino PA-C) History of section History of D&C History of right knee joint replacement History of wisdom tooth extraction Nausea and vomiting after administration of anesthetic agent Family History Mother PONV (postoperative nausea and vomiting) Social History Smoking Status: Never smoker Second Hand Exposure: No; Hx Alcohol Use: Yes Alcohol type: beer and hard liquor Hx Substance Use: No Preferred Language: Lithuanian Communication Ability: Effective Cigar Head Perforator Required: No Beliefs That Will Affect Care: None marital status: Current Living Situation: Spouse Feels Safe at Home: Yes Assistive Devices: Walker Review of Systems Constitutional: as per Subjective / HPI obesity Eyes: as per Subjective / HPI Respiratory: as per Subjective / HPI Cardiovascular: as per Subjective / HPI Gastrointestinal: as per Subjective / HPI Genitourinary: as per Subjective / HPI Musculoskeletal: S/P bilateral keen replacement Integumentary: as per Subjective / HPI Neurologic: as per Subjective / HPI Psychiatric: as per Subjective / HPI Endocrine: as per Subjective / HPI Hematologic / Lymphatic: as per Subjective / HPI Physical Exam Constitutional: obesity Eyes: PERRL, conjunctivae normal, anicteric sclerae Neck: trachea midline, no thyromegaly Respiratory: normal respiratory effort, lungs clear to auscultation Cardiovascular: RRR, no murmur, no edema Gastrointestinal (Abdomen): soft, tenderness at RUQ, no rebound pain, no distend, Musculoskeletal: no cyanosis or clubbing, extremities motor strength 5/5 Neurologic: patellar DTR's 2+ bilat, sensation intact Psychiatric: A+Ox3, euthymic affect Results & Data ([facility]) Vital Signs (Past 12 Hours) Vital Signs Temp Pulse Resp BP Pulse Ox 02/14/21 14:27 17 98 02/14/21 12:00 36.4 C L 85 18 171/89 H 98 Laboratory Results Abnormal lab results 02/14/21 02/14/21 Range/Units 13:03 13:03 WBC 13.40 H (4.8-10.8) K/uL Neut # (Auto) 11.32 H (1.4-6.5) K/uL [place] # (Auto) 0.62 H (0.11-0.59) K/uL Immature Gran # (Auto) 0.05 H (0.00-0.02) K/uL Sodium 135 L (136-145) mmol/L Glucose 127 H (70-99) mg/dl Diagnostic Findings ABDOMEN AND PELVIS CT WITH IV CONTRAST CT DOSE: 1935.82 mGy.cm HISTORY: Acute generalized abdominal pain with nausea intractable abdominal pain TECHNIQUE: Multiaxial CT images of the abdomen and pelvis were performed following the IV administration of 116 cc of Optiray, A dose lowering technique was utilized adhering to the principles of ALARA. COMPARISON STUDY: Right upper quadrant abdominal ultrasound 02/14/2021 FINDINGS: Coronary artery calcifications. Mild subsegmental bibasilar atelectasis. 4 mm fissural nodule of the right middle lobe on image 20 series 3 is suggestive of a probable lymph node. No pneumatosis or pneumoperitoneum. Unremarkable spleen. The pancreas and adrenal glands are unremarkable. Hepatic steatosis. No evidence of cirrhosis. Patent portal vein. Mild gallbladder distention with pericholecystic stranding and mild gallbladder wall thickening. Prominent and mildly enlarged periportal and precaval lymph nodes measure up to 12 mm. Additional enlarged retroperitoneal lymph nodes measure up to 11 mm the periaortic distribution.Enlarged iliac chain lymph nodes measure up to 1.7 cm on the right. 2.3 cm left pelvic sidewall lymph node on image 380. Right inguinal chain lymph node measures 1.4 cm. Moderate atherosclerosis of the aorta. Unremarkable kidneys. No hydronephrosis decompressed urinary bladder. Small cystic foci of the ovaries measure up to 2.4 cm on the right, nonspecific. Unremarkable uterus. No bowel obstruction or bowel wall thickening. Normal appendix. No ascites or mesenteric inflammation. Tiny fat filled periumbilical hernia. No acute fracture or suspicious bone lesion. Lower lumbar facet arthrosis. IMPRESSION: 1. Distended gallbladder with mild wall thickening and pericholecystic fluid is suspicious for acute cholecystitis. 2. The biliary ductal dilation and questioned choledocholithiasis described on the same day ultrasound is not identified by CT. 3. No bowel obstruction or bowel wall thickening. Normal appendix. 4. Enlarged periportal, pericaval, periaortic, iliac chain, pelvic and inguinal adenopathy is suspicious for a lymphoproliferative disorder. 5. Hepatic steatosis. US gallbladder HISTORY: 60 years-old Female RUQ pain acute right upper quadrant abdominal pain COMPARISON: None TECHNIQUE: Multiple real-time sonographic images of the abdominal right upper quadrant were obtained assessing grayscale appearance and color flow FINDINGS: The pancreas is obscured by bowel gas. The liver measures up to 17 cm in length and is echogenic. Shadowing cholelithiasis. The gallbladder wall is thickened measuring up to 6 mm. No pericholecystic fluid. Sonographic Shields sign reported as negative. Common bile duct is mildly dilated at 8 mm. Questioned echogenic focus within the common bile duct on image 38. The imaged right kidney is unremarkable without hydronephrosis. IMPRESSION: 1. Cholelithiasis with mild nonspecific gallbladder wall thickening. No pericholecystic fluid. The sonographic Shields sign was reported as negative. These findings could be correlated with nuclear medicine hepatobiliary scan to exclude developing acute cholecystitis. 2. Mild biliary ductal dilation with questioned choledocholithiasis. Correlate with serum bilirubin level. 3. Hepatic steatosis.
--- NOTE | 2021-02-14 19:23 | History & Physical Report ---
Date of Service February 14, 2021 Assessment & Plan (1) Acute cholecystitis due to biliary calculus: (2) Morbid obesity: Plan: 60-year-old lady with past medical history of HTN, leg edema on Lasix, section, bilateral knee replacement recently on diclofenac since last 6 months and morbid obesity presented to our ED 02/14 with sudden onset of right upper quadrant pain and worsening of her chronic heartburn symptoms. She is being managed for the following: #. Acute cholecystitis Admitting WBC 13 point 4K, does not meet SIRS criteria. Admitting US gallbladder: Cholelithiasis, concern for choledocholithiasis, hepatic steatosis Admitting CTAP: Distended gallbladder with mild wall thickening and pericholecystic fluid suspicious for cholecystitis. Redemonstration of biliary ductal dilation and questionable choledocholithiasis as with USG above. Surgery evaluated the patient: Plan for OR tomorrow Continue with Zosyn, n.p.o. midnight, #. Elevated blood pressure Patient has history of hypertension, on atenolol Admitting blood pressure 171/89 Blood pressure elevated likely secondary to acute stress Continue home medication, as needed IV medication for blood pressure management Expect to improve with resolution of acute process. #. GERD Patient has heartburn symptoms on and off since last 6 months around which time she was started on diclofenac We will put her on diclofenac gel rather than oral for her bilateral knee pain. Continue PPI twice daily, advised to avoid NSAIDs in future, advised to follow- up with GI doctor as an outpatient. #. Other chronic medical condition: Stroke prophylaxis, chronic knee pain. Continue aspirin, start diclofenac gel. #. 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 Full code We will put her on DVT prophylaxis after surgery tomorrow. History of Present Illness Chief Complaint: Right upper belly pain and heartburn Primary Care Provider: Charlotte Diamond PA-C 60-year-old lady with past medical history of HTN, leg edema on Lasix, section, bilateral knee replacement recently on diclofenac since last 6 months and morbid obesity presented to our ED 02/14 with sudden onset of right upper quadrant pain and worsening of her chronic heartburn symptoms. Per patient, she has been having on and off heartburn symptoms since last 6 months which will get resolved with [id number] Tums and Prilosec. Also, she states that she was started on diclofenac around 6 months ago for her ongoing knee pain. Patient reports that her heartburn woke her up at around 2 AM today morning and found herself having right upper belly pain and dry heaving as well She has not eaten any food since 8 PM yesterday. She feels nauseous but has not vomited. Patient reports that right upper belly pain is new in this chronic 6 months on and off ongoing heartburn signs and symptoms. Patient does not smoke, drinks alcohol occasionally [twice a month] and does not use recreational drugs. ROS: Patient denies fever/chills/chest pain/palpitations/acute changes in her bowel or bladder habits/increased swelling of her lower extremity. No personal history of stroke/VA/asthma/COPD/cancer. No family history of cancer or VA. Family history positive for stroke in father at age 50, also positive in uncle and grandfather. Hence patient is on aspirin for stroke prophylaxis. Patient is full code. All the medications were reviewed with the patient. Allergies Allergy/AdvReac Type Severity Reaction Status Date / Time No Known Allergies Allergy Unverified 12/08/19 10:30 Home Medications Medication Instructions Recorded Confirmed Type aspirin 81 mg tablet,delayed 81 mg PO QAM 11/01/19 02/14/21 History release atenolol 50 mg tablet (Tenormin) 50 mg PO QAM 11/01/19 02/14/21 History furosemide 20 mg tablet 20 mg PO QAM 11/01/19 02/14/21 History acetaminophen 500 mg tablet 1,000 mg PO Q6H PRN 12/08/19 02/14/21 History (Tylenol Extra Strength) ibuprofen 200 mg tablet 600 mg PO Q6H PRN 12/08/19 02/14/21 History diclofenac sodium 50 mg 50 mg PO BID #60 tab 01/20/20 02/14/21 Rx tablet,delayed release amoxicillin 500 mg capsule 500 mg PO DAILY 02/14/21 02/14/21 History Past Med/Surg History Medical History (Updated 02/14/21 @ 18:15 by Maral Lama MD) Hypertension Morbid obesity Osteoarthritis Surgical History (Updated 12/18/19 @ 06:52 by Miguel Ángel Marino PA-C) History of section History of D&C History of right knee joint replacement History of wisdom tooth extraction Nausea and vomiting after administration of anesthetic agent Family History Mother PONV (postoperative nausea and vomiting) Social History Smoking Status: Never smoker Second Hand Exposure: No; Hx Alcohol Use: Yes Alcohol type: beer and hard liquor Hx Substance Use: No Preferred Language: Divehi Communication Ability: Effective 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 Physical Exam Physical Exam: GENERAL: Alert and oriented x3. NAD, on RA. Morbid obesity. HEENT: No pallor, no icterus. Pupils equal, round and reactive to light. Oral mucosa moist. NECK: No JVD, no neck masses. HEART: S1 and S2 heard. Regular rate and rhythm. No murmur, no gallop. RESPIRATORY SYSTEM: Normal AP diameter. No accessory muscle use. No wheezing, no crackles. ABDOMEN: Soft, bowel sounds present, RUQ and epigastric tenderness noted, no distention. CENTRAL NERVOUS SYSTEM: Alert and oriented x3. No facial droop. Speech is clear. Obeys simple commands. Moves extremities. EXTREMITIES: No edema, no erythema seen. Results & Data Results & Data ([facility]) Vital Signs (Past 12 Hours) Vital Signs Temp Pulse Resp BP Pulse Ox 02/14/21 18:30 67 16 95 02/14/21 18:00 73 16 175/92 H 99 02/14/21 14:31 80 13 190/95 H 02/14/21 14:27 17 98 02/14/21 12:00 36.4 C L 85 18 171/89 H 98 Code Status & VTE Plan VTE Prophylaxis Plan VTE Prophylaxis will be ordered: Yes
[2021-02-14] MEDS ORDERED: CARBOHYDRATES FOR HYPOGLYCEMIA PO PRN (21:48)
[2021-02-14] MEDS ORDERED: PIPERACILL/TAZOBAC CONSULT ACTIVE PRN (21:48)
[2021-02-14] MEDS ORDERED: hydrALAZINE HCL 20 MG/ML VIAL IV PRN (21:48)
[2021-02-14] MEDS ORDERED: DEXTROSE 50% 50 ML SYRINGE IV PRN (21:48)
[2021-02-14] MEDS ORDERED: GLUCOSE 40% GEL 15 GM TUBE PO PRN (21:48)
[2021-02-14] MEDS ORDERED: GLUCOSE 10 TABS/TUBE PO PRN (21:48)
[2021-02-14] MEDS ORDERED: ACETAMINOPHEN 325 MG TAB PO PRN (21:48)
[2021-02-14] MEDS ORDERED: GLUCAGON FOR INJ 1 MG VIAL SQ PRN (21:48)
[2021-02-14] MEDS ORDERED: PIPERACILLIN/TAZOBACTAM 4.5 GM in DEXTROSE 5% 100 ML IV ONE (22:00)
[2021-02-14] MEDS: MoRPHine SULFATE 4 MG/ML 1 ML CARP\\VIAL IV PRN (22:33)
[2021-02-14] MEDS: ONDANSETRON INJ 2 MG/ML 2 ML VIAL IV PRN (22:36)
[2021-02-15] MEDS: PANTOprazole 40 MG in SYRINGE 0 ML IV SCH ×3 (00:05→20:26)
[2021-02-15] MEDS: LACTATED RINGER'S 1,000 ML IV SCH ×2 (00:05→11:23)
[2021-02-15] MEDS: DICLOFENAC SOD 1% GEL 100 GM TUBE EXT SCH ×4 (00:13→20:26)
[2021-02-15] MEDS: PIPERACILLIN/TAZOBACTAM 4.5 GM in DEXTROSE 5% 100 ML IV SCH ×3 (04:09→20:25)
[2021-02-15] MEDS: MoRPHine SULFATE 4 MG/ML 1 ML CARP\\VIAL IV PRN ×2 (04:27→10:57)
[2021-02-15] MEDS: ONDANSETRON INJ 2 MG/ML 2 ML VIAL IV PRN ×2 (04:27→10:57)
[2021-02-15] MEDS ORDERED: ONDANSETRON INJ 2 MG/ML 2 ML VIAL ONE (07:01)
[2021-02-15] MEDS ORDERED: DEXAMETHASONE SOD INJ 4 MG/ML VIAL ONE (07:01)
[2021-02-15] MEDS ORDERED: LIDOCAINE 2% 2 ML VIAL/AMP(20MG/ML) INFIL ONE (07:01)
[2021-02-15] MEDS ORDERED: PROPOFOL IV EMULSION 10 MG/ML 20 ML VIAL IV ONE (07:01)
[2021-02-15] MEDS ORDERED: MIDAZOLAM HCL 1 MG/ML 2ML VIAL ONE (07:01)
[2021-02-15] MEDS ORDERED: fentaNYL citrate 100 MCG/2 ML VIAL ONE ×2 (07:01→07:57)
[2021-02-15] MEDS ORDERED: BUPIVACAINE 0.5 % 5 MG/1 ML MPF 30ML VIAL ONE (07:06)
[2021-02-15] MEDS ORDERED: LIDOCAINE 1% LOCAL 20 ML VIAL ONE (07:06)
[2021-02-15] MEDS ORDERED: BACITRACIN OINT 15 GM TUBE ONE (07:07)
--- NOTE | 2021-02-15 07:27 | History & Physical Bridge Note ---
Date of Service February 15, 2021 History & Physical Bridge Note I have examined the patient, reviewed the History & Physical and in the interval since the performance of the History & Physical I have noted the following changes of clinical significance: no changes noted
[2021-02-15] MEDS ORDERED: SCOPOLAMINE 1 MG TDSY TD ONE ×2 (07:29→09:00)
--- NOTE | 2021-02-15 07:35 | Anesthesiology Consultation ---
Date of Service February 15, 2021 Assessment & Plan (1) Encounter for pre-operative examination: Chart Review Chart Review: Acceptable Risk for Surgery and Patient NOT seen in Pre Admission Testing Consults Requested none History Surgery Operation Date: 02/15/21 08:05 Proposed Procedures p Laparoscopic Cholecystectomy - Maral Lama MD Height/Weight Height: 5 ft 2 in Weight: 139.2 kg Allergies Allergy/AdvReac Type Severity Reaction Status Date / Time No Known Allergies Allergy Unverified 12/08/19 10:30 Medications Home Medications Medication Instructions Recorded Confirmed Last Taken aspirin 81 mg tablet,delayed 81 mg PO QAM 11/01/19 02/14/21 12/07/19 07:00 release atenolol 50 mg tablet (Tenormin) 50 mg PO QAM 11/01/19 02/14/21 12/08/19 07:00 furosemide 20 mg tablet 20 mg PO QAM 11/01/19 02/14/21 12/07/19 07:00 acetaminophen 500 mg tablet 1,000 mg PO Q6H PRN 12/08/19 02/14/21 12/06/19 12:00 (Tylenol Extra Strength) ibuprofen 200 mg tablet 600 mg PO Q6H PRN 12/08/19 02/14/21 12/01/19 12:00 diclofenac sodium 50 mg 50 mg PO BID #60 tab 01/20/20 02/14/21 Unknown tablet,delayed release amoxicillin 500 mg capsule 500 mg PO DAILY 02/14/21 02/14/21 Unknown Active Medications Generic Name Dose Route Start Last Admin Trade Name Freq PRN Reason Stop Dose Admin Diclofenac Sodium 2 gm 02/14/21 22:00 02/15/21 00:13 Diclofenac Sod 1% Gel 100 Gm Tube EXT 03/16/21 21:59 2 gm TID CAMILLA Administration Lactated Ringer's 1,000 mls @ 125 mls/hr 02/14/21 22:00 02/15/21 07:13 Lr IV 03/16/21 21:59 Infused .Q8H CAMILLA Infusion Pantoprazole Sodium 40 mg/ 10 mls @ 5 mls/min 02/14/21 22:00 02/15/21 00:05 Syringe IV 03/16/21 21:59 5 mls/min BID CAMILLA Administration Piperacillin Sod/Tazobactam 120 mls @ 30 mls/hr 02/15/21 04:00 02/15/21 06:41 Sod 4.5 gm/ Dextrose IV 02/25/21 03:59 30 mls/hr Q8H CAMILLA Infusion Protocol Morphine Sulfate 4 mg 02/14/21 18:52 02/15/21 04:27 Morphine Sulfate 4 Mg/Ml 1 Ml Carp\Vial IV 02/28/21 18:51 4 mg Q4H PRN Administration severe pain Ondansetron HCl 4 mg 02/14/21 21:48 02/15/21 04:27 Ondansetron Inj 2 Mg/Ml 2 Ml Vial IV 03/16/21 21:47 4 mg Q6H PRN Administration Nausea NPO Date Last Intake of Fluids: 02/14/21 Time Last Intake of Fluids: 21:30 Date Last Intake of Solids: 02/13/21 Time Last Intake of Solids: 20:00 Past Medical History Medical History Hypertension Morbid obesity Osteoarthritis Past Family History Family History Mother PONV (postoperative nausea and vomiting) Past Surgical History Surgical History History of section History of D&C History of right knee joint replacement History of wisdom tooth extraction Nausea and vomiting after administration of anesthetic agent Social History Smoking Status: Never smoker Do You Dip or Chew Tobacco: No Hx Alcohol Use: Yes Alcohol type: beer alcohol intake frequency: a few times a month Hx Substance Use: No substance use type: does not use Physical Exam Vital Signs Last Vital Signs Temp 36.6 C 02/15/21 07:22 Pulse 93 H 02/15/21 07:22 Resp 18 02/15/21 07:22 BP 143/78 H 02/15/21 07:22 Pulse Ox 94 02/15/21 07:22 Testing Laboratory Results 02/14/21 13:03 02/14/21 13:03 Urine Color Yellow 02/14/21 14:17 Urine Appearance Clear (Clear) 02/14/21 14:17 Urine pH 5.0 (4.5-7.5) 02/14/21 14:17 Ur Specific [place] 1.017 (1.000-1.030) 02/14/21 14:17 Urine Protein Negative (Negative) 02/14/21 14:17 Urine Glucose (UA) Negative (Negative) 02/14/21 14:17 Urine Ketones Negative (Negative) 02/14/21 14:17 Urine Nitrite Negative (Negative) 02/14/21 14:17 Ur Leukocyte Esterase Negative (Negative) 02/14/21 14:17 Electrocardiogram Date: 02/14/21 Test Reason : Blood Pressure : / mmHG Vent. Rate : 078 BPM Atrial Rate : 078 BPM P-R Int : 160 ms QRS Dur : 088 ms QT Int : 400 ms P-R-T Axes : 064 015 040 degrees QTc Int : 456 ms Normal sinus rhythm When compared with ECG of 07-NOV-2019 08:48, No significant change was found Confirmed by Castillo Ackerman ([id number]) on 02/14/2021 4:00:20 PM Referred By: Charlotte Diamond Confirmed By:Catracho Ackerman Signed By: 02/14/21 1600 Dictated:02/14/21 1429
[2021-02-15] MEDS ORDERED: ATROPINE SULFATE 0.1 MG/ML 10ML SYR IV PRN (07:38)
[2021-02-15] MEDS ORDERED: HYDROmorphone INJ 1 MG/ML SYRINGE IV PRN (07:38)
[2021-02-15] MEDS ORDERED: PHENYLEPHRINE 100MCG/ML 5ML SYR IV PRN (07:38)
[2021-02-15] MEDS ORDERED: LABETALOL HCL IV 5 MG/ML 20ML IV PRN (07:38)
[2021-02-15] MEDS ORDERED: ONDANSETRON INJ 2 MG/ML 2 ML VIAL IV PRN (07:38)
[2021-02-15] MEDS ORDERED: MEPERIDINE HCL 25 MG/ML CARP/VIAL IV PRN (07:38)
[2021-02-15] MEDS ORDERED: fentaNYL citrate 100 MCG/2 ML VIAL IV PRN (07:38)
[2021-02-15] MEDS ORDERED: ePHEDrine sulfate 50 MG/ML AMP IV PRN (07:38)
[2021-02-15] MEDS ORDERED: ROCURONIUM BROMIDE 10 MG/ML 5 ML VIAL IV ONE (08:18)
--- NOTE | 2021-02-15 09:18 | Post Operative Brief Note ---
Immediate Post Op Note v1 Date of Surgery February 15, 2021 Pre & Post Diagnosis Operation Date: 02/15/21 08:05 Pre-Op Diagnosis: ACUTE CHOLECYSTITIS, cholelithiasis Post-Op Diagnosis: ACUTE CHOLECYSTITIS, cholelithiasis I identified the patient and participated in the time-out.: Yes Procedure Operation Date: 02/15/21 08:05 Actual Procedures p Laparoscopic Cholecystectomy - Maral Lama MD Surgeon Maral Lama MD Dowel Sander Operator surgical technician Estimated Blood Loss 20 Findings Consistent with Post-Op Diagnosis significant inflammation on gallbladder wall, Fluids 800ml Specimens gallbladder Anesthesia Type General Complications none Disposition Accompanied Patient To Recovery: Yes
[2021-02-15 09:59] LABS: Estimated Average Glucose 123 mg/dl; Hemoglobin A1C 5.9 % (4.5-5.6)
--- NOTE | 2021-02-15 10:19 | Anesthesiology Progress Note ---
Date of Service February 15, 2021 Anesthesia Post Procedure Vital Signs Vital Signs: Temp Pulse Pulse Pulse Resp BP BP 02/15/21 10:10 36.6 C 77 15 129/70 02/15/21 10:00 76 16 144/78 H 02/15/21 09:50 78 16 144/78 H 02/15/21 09:40 79 19 130/60 02/15/21 09:30 36.3 C L 89 16 157/93 H 02/15/21 07:22 36.6 C 93 H 18 143/78 H 02/14/21 21:50 37.2 C 79 18 167/91 H 02/14/21 21:14 37.1 C 75 18 156/77 H 02/14/21 19:30 75 18 178/98 H 02/14/21 18:30 67 16 02/14/21 18:00 73 16 175/92 H 02/14/21 14:31 80 13 190/95 H 02/14/21 14:27 17 02/14/21 12:00 36.4 C L 85 18 171/89 H Pulse Ox 02/15/21 10:10 96 02/15/21 10:00 94 02/15/21 09:50 93 02/15/21 09:40 95 02/15/21 09:30 93 02/15/21 07:22 94 02/14/21 21:50 98 02/14/21 21:14 97 02/14/21 19:30 98 02/14/21 18:30 95 02/14/21 18:00 99 02/14/21 14:31 02/14/21 14:27 98 02/14/21 12:00 98 Pain Intensity Right Abdomen: Pain Intensity: 3 Transfer of Care Handoff Completed per policy Notes Mental Status: alert / awake / arousable Patient Amnestic to Procedure: Yes Nausea / Vomiting: adequately controlled Pain: adequately controlled Airway Patency, RR, SpO2: stable & adequate BP & HR: stable & adequate Hydration State: stable & adequate Anesthetic Complications: no major complications apparent and Pt Satisfied with anesthetic care
[2021-02-15] MEDS ORDERED: ACETAMINOPHEN HOME PACK 500 MG TABLET PO PRN (10:42)
[2021-02-15] MEDS ORDERED: LACTATED RINGER'S 1,000 ML IV SCH (10:42)
[2021-02-15] MEDS ORDERED: IBUPROFEN 600 MG TAB PO PRN (10:42)
[2021-02-15] MEDS ORDERED: NEOSTIGMINE METHYLSULFATE 1 MG/ML 10ML VIAL ONE (10:56)
[2021-02-15] MEDS ORDERED: GLYCOPYRROLATE 0.2 MG/ML VIAL ONE (10:56)
[2021-02-15] MEDS: ATENOLOL 50 MG TABLET PO SCH (10:59)
--- NOTE | 2021-02-15 13:26 | Hospitalist Progress Note ---
Date of Service February 15, 2021 Assessment & Plan (1) Acute cholecystitis due to biliary calculus: (2) Morbid obesity: Plan: 60-year-old lady with past medical history of HTN, leg edema on Lasix, section, bilateral knee replacement recently on diclofenac since last 6 months and morbid obesity presented to our ED 02/14 with sudden onset of right upper quadrant pain and worsening of her chronic heartburn symptoms. She is being managed for the following: #. Acute cholecystitis Admitting WBC 13 point 4K, does not meet SIRS criteria. Admitting US gallbladder: Cholelithiasis, concern for choledocholithiasis, hepatic steatosis Admitting CTAP: Distended gallbladder with mild wall thickening and pericholecystic fluid suspicious for cholecystitis. Redemonstration of biliary ductal dilation and questionable choledocholithiasis as with USG above POD #0 s/p laparoscopic cholecystectomy by Dr. Lama Feeling well post-operatively. Advanced to clear liquids, continue IV Zosyn until tomorrow per Dr. Lama, IV fluids discontinued #. Elevated blood pressure Patient has history of hypertension, on atenolol Admitting blood pressure 171/89 Blood pressure elevated likely secondary to acute stress Continue home medication, as needed IV medication for blood pressure management BP has improved with resolution of acute process #. GERD Patient has heartburn symptoms on and off since last 6 months around which time she was started on diclofenac We will put her on diclofenac gel rather than oral for her bilateral knee pain. Continue PPI twice daily, advised to avoid NSAIDs in future, advised to follow- up with GI doctor as an outpatient #. Other chronic medical condition: Stroke prophylaxis, chronic knee pain. Continue aspirin, start diclofenac gel. #. 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 Full code We will put her on DVT prophylaxis after surgery tomorrow. Patient seen in collaboration with Dr. Pickering. Please see addendum. Admission and Anticipated Discharge Date Admission Date: February 14, 2021 Supervising Physician Co-Signing Physician Notes I have seen and examined the patient and have discussed the case with the provider above. I agree with the assessment and plan as stated. Patient reporting feeling better after surgery today. Upon examination clean dressing over the lap etreza access site on abdomen, heart and lungs WNL on exam, no edema and on 1 L nasal cannula oxygen. Possible discharge tomorrow, per surgery patient will not need antibiotic. Subjective Patient seen and evaluated in 376-2. POD#0 postop lap tereza. Feeling well. Some initial nausea but better after Zofran. Denies any fever, chills, headache, lightheadedness, vomiting, abdominal pain, chest pain, shortness of breath, dysuria or diarrhea. Review of Systems Review of Systems: At least ten systems reviewed and negative except as noted in the HPI. Physical Exam Physical Exam: Gen: WD/WN, NAD, sitting in bedside chair, obese, A&Ox3 HEENT: Normocephalic, atraumatic, conjunctivae moist, sclerae anicteric, mucous membranes moist Lung: Clear to Auscultation bilaterally, no wheezes/rales/rhonchi Heart: Regular rate, regular rhythm, no murmurs, rubs, or gallops Abdomen: Soft, 4 small lap incisions with dressings c/d/i. Non-tender, +BS x 4 Extremities: no edema Skin: Warm, no rash Results & Data Results & Data ([facility]) Vital Signs (Past 12 Hours) Vital Signs Temp Pulse Pulse Resp BP Pulse Ox 02/15/21 13:01 36.6 C 72 16 123/70 92 02/15/21 11:53 37.0 C 75 18 122/69 90 02/15/21 11:09 36.9 C 74 16 117/69 92 02/15/21 10:43 37.2 C 70 16 137/77 92 02/15/21 10:20 66 12 145/59 H 95 02/15/21 10:10 36.6 C 77 15 129/70 96 02/15/21 10:00 76 16 144/78 H 94 02/15/21 09:50 78 16 144/78 H 93 02/15/21 09:40 79 19 130/60 95 02/15/21 09:30 36.3 C L 89 16 157/93 H 93 02/15/21 07:22 36.6 C 93 H 18 143/78 H 94 Laboratory Results BMP 02/14/21 13:03 Sodium 135 L Potassium 4.3 Chloride 102 Carbon Dioxide 27 BUN 17 Creatinine 1.01 Glucose 127 H Calcium 9.4 Cardiac Enzymes 02/14/21 Range/Units 12:05 Troponin I < 0.015 (0-0.045) ng/ml Liver Function 02/14/21 Range/Units 13:03 Total Bilirubin 0.5 (0.2-1) mg/dl AST 19 (15-37) U/L ALT 35 (12-78) U/L Alkaline Phosphatase 98 (45-117) U/L Albumin 3.8 (3.4-5.0) gm/dl Urine 02/14/21 Range/Units 14:17 Urine Color Yellow Urine Appearance Clear (Clear) Urine pH 5.0 (4.5-7.5) Ur Specific [place] 1.017 (1.000-1.030) Urine Protein Negative (Negative) Urine Glucose (UA) Negative (Negative) Diagnostic Findings Gallbladder Ultrasound 02/14/21 13:44 US gallbladder HISTORY: 60 years-old Female RUQ pain acute right upper quadrant abdominal pain COMPARISON: None TECHNIQUE: Multiple real-time sonographic images of the abdominal right upper quadrant were obtained assessing grayscale appearance and color flow FINDINGS: The pancreas is obscured by bowel gas. The liver measures up to 17 cm in length and is echogenic. Shadowing cholelithiasis. The gallbladder wall is thickened measuring up to 6 mm. No pericholecystic fluid. Sonographic Shields sign reported as negative. Common bile duct is mildly dilated at 8 mm. Questioned echogenic focus within the common bile duct on image 38. The imaged right kidney is unremarkable without hydronephrosis. IMPRESSION: 1. Cholelithiasis with mild nonspecific gallbladder wall thickening. No pericholecystic fluid. The sonographic Shields sign was reported as negative. These findings could be correlated with nuclear medicine hepatobiliary scan to exclude developing acute cholecystitis. 2. Mild biliary ductal dilation with questioned choledocholithiasis. Correlate with serum bilirubin level. 3. Hepatic steatosis. ACT 112: Negative or not required by law. The above report was generated using voice recognition software. It may contain grammatical, syntax or spelling errors. Electronically signed by: Rosas Street M.D. 02/14/2021 4:11 PM Abdomen/Pelvis CT 02/14/21 16:[address] WITH IV CONTRAST CT DOSE: 1935.82 mGy.cm HISTORY: Acute generalized abdominal pain with nausea intractable abdominal pain TECHNIQUE: Multiaxial CT images of the abdomen and pelvis were performed follow ing the IV administration of 116 cc of Optiray, A dose lowering technique was utilized adhering to the principles of ALARA. COMPARISON STUDY: Right upper quadrant abdominal ultrasound 02/14/2021 FINDINGS: Coronary artery calcifications. Mild subsegmental bibasilar atelectasis. 4 mm fissural nodule of the right middle lobe on image 20 series 3 is suggestive of a probable lymph node. No pneumatosis or pneumoperitoneum. Unremarkable spleen. The pancreas and adrenal glands are unremarkable. Hepatic steatosis. No evidence of cirrhosis. Patent portal vein. Mild gallbladder distention with pericholecystic stranding and mild gallbladder wall thickening. Prominent and mildly enlarged periportal and precaval lymph nodes measure up to 12 mm. Additional enlarged retroperitoneal lymph nodes measure up to 11 mm the periaortic distribution.Enlarged iliac chain lymph nodes measure up to 1.7 cm on the right. 2.3 cm left pelvic sidewall lymph node on image 380. Right inguinal chain lymph node measures 1.4 cm. Moderate atherosclerosis of the aorta. Unremarkable kidneys. No hydronephrosis decompressed urinary bladder. Small cystic foci of the ovaries measure up to 2.4 cm on the right, nonspecific. Unremarkable uterus. No bowel obstruction or bowel wall thickening. Normal appendix. No ascites or mesenteric inflammation. Tiny fat filled periumbilical hernia. No acute fracture or suspicious bone lesion. Lower lumbar facet arthrosis. IMPRESSION: 1. Distended gallbladder with mild wall thickening and pericholecystic fluid is suspicious for acute cholecystitis. 2. The biliary ductal dilation and questioned choledocholithiasis described on the same day ultrasound is not identified by CT. 3. No bowel obstruction or bowel wall thickening. Normal appendix. 4. Enlarged periportal, pericaval, periaortic, iliac chain, pelvic and inguinal adenopathy is suspicious for a lymphoproliferative disorder. 5. Hepatic steatosis. ACT 112: Negative or not required by law. The above report was generated using voice recognition software. It may contain grammatical, syntax or spelling errors. Electronically signed by: Rosas Street M.D. 02/14/2021 5:33 PM Chest X-Ray 02/14/21 17:41 XR chest 1V portable HISTORY: 60 years-old Female pre-op preoperative exam. No acute chest complaints. COMPARISON: CT abdomen and pelvis of same day, chest radiograph 11/07/2019 TECHNIQUE: Portable AP view of the chest FINDINGS: Cardiac silhouette is mildly enlarged. Mild coarsening of interstitium is likely secondary to patient body habitus. Minimal subsegmental bibasilar atelectasis without pneumothorax, pleural effusion, overt pulmonary edema or lobar airspace consolidation. Mild right hemidiaphragmatic elevation. Degenerative changes of the shoulders and spine. IMPRESSION: No acute process. ACT 112: Negative or not required by law. The above report was generated using voice recognition software. It may contain grammatical, syntax or spelling errors. Electronically signed by: Rosas Street M.D. 02/14/2021 5:59 PM
[2021-02-15] MEDS: oxyCODONE/ACETAMINOPHEN 5mg/325mg TAB PO PRN ×2 (13:29→20:25)
[2021-02-15] MEDS: CHECK SCOPOLAMINE PATCH PLACEMENT SCH (14:53)
--- NOTE | 2021-02-15 14:59 | Operative Report (OR) ---
DATE OF PROCEDURE: 02/15/2021 PREOPERATIVE DIAGNOSES: Acute cholecystitis and cholelithiasis. POSTOPERATIVE DIAGNOSES: Acute cholecystitis and cholelithiasis. OPERATION: Laparoscopic cholecystectomy. SURGEON: Maral Lama MD. ANESTHESIA: General. ESTIMATED BLOOD LOSS: About 20 mL. FINDINGS: Significant inflammation on the gallbladder wall, gallbladder wall thickening, edema, conf irmed diagnosis of acute cholecystitis with cholelithiasis. COMPLICATIONS: None. INDICATIONS FOR THE PROCEDURE: This is a 60-year-old female who was admitted to the hospital for acu te cholecystitis with cholelithiasis and I recommended to do laparoscopic cholecystectomy, possible o pen, possible cholangiogram. I did talk to the patient about the benefit, risk, alternate procedure. I indicated the risks may include, but not limited to, such as bleeding, infection, injury to other organs, incisional hernia, may need ERCP, bile leak, myocardial infarction, DVT, stroke, even . The patient understands and she signed informed consent and I answered all questions. DETAILS OF PROCEDURE: After we identified the patient and verified the procedure, we brought the pat ient to the OR, put the patient in the supine position on the OR table. The patient received SCD on bilateral legs to prevent DVT. Also, patient received 3.375 grams of Zosyn IV for prophylactic antib iotic. The patient received general anesthesia without difficulty. The abdomen was prepped and drap ed in routine sterile fashion. After timeout, I injected the local anesthesia by using 1% lidocaine mixed with 0.5% Marcaine just above the umbilicus. Then I made a small incision just above umbilicus , opened fascia, and opened peritoneum. Under direct vision, put a Thierry trocar in, connected to CO 2 to create pneumoperitoneum, flow rate at 6 liters per minute, pressure not more than 14 mmHg. Once we got a nice pneumoperitoneum, we put a camera in, looked around the abdomen, it shows normal f inding on the liver; however, the gallbladder showed acute inflammation on the gallbladder wall and g allbladder wall thickening and edema, confirmed the diagnosis of acute cholecystitis. Then, we put a nother two 5 mm trocars in the right upper quadrant and 11 trocar in the epigastric area. Once all t rocars in, because the gallbladder had significant distention, we used a large needle to decompress t he gallbladder first. Then, we used a grasper to hold the base of gallbladder, put in the direction to the diaphragm. Another grasper to hold the pouch of gallbladder, put a lateral to explore the tri angle of [place]. The cystic duct was identified and mobilized. I put two 10 mm metal clips on the proximal cystic victor manuel t, one on the distal cystic duct. I used a scissor for transection of cystic duct; rechecked, no chalino e leak, no active bleeding. The cystic artery was identified and mobilized. I put two 10 mm metal c lips on the proximal cystic artery and one on the distal cystic artery, then used a scissor for trans ection of cystic artery; rechecked, no active bleeding. Then, we used the Bovie to take down gallbla dder from the liver bed; rechecked, no active bleeding, no bile leak from the liver bed. Then, we re moved gallbladder through the catch bag. Then, we reinserted the Thierry trocar in, connected to CO2 to create pneumoperitoneum, again looked a round the abdomen, no active bleeding, no bile leak from the liver bed. Then, we removed all trocars under direct vision. No active bleeding from the trocar site. Pneumoperitoneum was released, then I closed the umbilical incision fascial layer by using 0 Vicryl [id number] x2, closed subcutaneo us layer by using 2-0 Vicryl interruptedly, closed skin by using 4-0 Vicryl continuous running; close d the epigastric incision fascial layer by using 0 Vicryl [id number] x2, closed subcutaneous lay er by using 2-0 Vicryl interruptedly, closed skin by using 4-0 Vicryl interruptedly, closed another t wo 5 mm trocar site of skin only by using 4-0 Vicryl. Then, we put the dressing on. The patient tolerated the procedure well. All instrument, needle and sponge counts were correct x2 a t the end of the case and the patient was transferred to recovery room in stable condition. After e procedure, I did talk to the patient about the OR finding and the procedure we did, patient underst ands. Job ID: [id number]
[2021-02-15] MEDS: DICLOFENAC SODIUM 25 MG TABDR PO SCH (20:25)
[2021-02-15] MEDS: HEPARIN SOD 5,000 UNIT/0.5 ML VIAL SQ SCH (20:26)
[2021-02-16] MEDS: CHECK SCOPOLAMINE PATCH PLACEMENT SCH ×2 (00:33→08:36)
[2021-02-16] MEDS: PIPERACILLIN/TAZOBACTAM 4.5 GM in DEXTROSE 5% 100 ML IV SCH ×2 (04:38→12:21)
[2021-02-16] MEDS: oxyCODONE/ACETAMINOPHEN 5mg/325mg TAB PO PRN ×2 (04:39→14:13)
--- NOTE | 2021-02-16 05:11 | Surgery Progress Note ---
Date of Service February 16, 2021 Assessment & Plan (1) Acute cholecystitis: Plan: Status post cholecystectomy on 02/15/2021 (POD#1) Continue analgesics Continue antiemetics Continue antibiotics while in hospital Continue diet as tolerated Follow up on a.m. labs when available Likely discharge home later today; patient will follow up with Dr. Britton as outpatient Admission and Anticipated Discharge Date Admission Date: February 14, 2021 Supervising Physician Co-Signing Physician Notes I personally saw and evaluated the patient with Jaxon Ruelas PA-C and agree with the assessment and plan. POD#1 lap tereza -Tolerating diet -OK for d/c home today from surgical standpoint Subjective Patient is resting comfortably in bed. She denies any significant postoperative pain. She says that she had a small bowel movement as well as passing flatus since surgery. She denies any nausea vomiting. She is tolerating solid food. She is voiding without difficulty. She denies any shortness of breath. Physical Exam Gastrointestinal (Abdomen): Abdomen is nondistended. Incisions are clean dry and intact. Bowel sounds are present. Patient has appropriate tenderness with palpation near incisions. Results & Data ([facility]) Vital Signs (Past 12 Hours) Vital Signs Temp Pulse Resp BP Pulse Ox 02/15/21 23:48 36.9 C 68 18 112/67 93 02/15/21 19:59 36.9 C 70 14 97/63 L 91 PG Care Time/CCT Total # of Minutes Spent Total Time Spent with Patient: Total time spent is greater than 50% in coordination of care (as documented) at patient's floor/unit and/or counseling patient: Coding Level of Care Code None Diagnoses Acute cholecystitis K81.0
[2021-02-16 06:23] LABS: Basophils # (auto) 0.01 K/uL (0-0.2); Basophils % (auto) 0.1 %; Eosinophils # (auto) 0.01 K/uL (0-0.5); Eosinophils % (auto) 0.1 %; Hematocrit (blood only) 38.2 % (37-47); Hemoglobin 12.2 g/dL (12.0-16.0); Immature Granulocytes # (auto) 0.02 K/uL (0.00-0.02); Immature Granulocytes % (auto) 0.2 %; Lymphocytes # (auto) 1.45 K/uL (1.2-3.4); Lymphocytes % (auto) 12.9 %; Mean Corpuscular Hemoglobin 30.2 pg (25-34); Mean Corpuscular Hgb Conc 31.9 g/dL (32-36); Mean Corpuscular Volume 94.6 fL (80-100); Monocytes # (auto) 1.11 K/uL (0.11-0.59); Monocytes % (auto) 9.9 %; Neutrophils # (auto) 8.61 K/uL (1.4-6.5); Neutrophils % (auto) 76.8 %; Platelet Count 315 K/uL (130-400); RDW Coefficient of Variation 13.2 % (11.5-14.5); RDW Standard Deviation 45.7 fL (36.4-46.3); Red Blood Count 4.04 M/uL (4.2-5.4); White Blood Count 11.21 K/uL (4.8-10.8)
[2021-02-16 07:00] LABS: Albumin Level 2.9 gm/dl (3.4-5.0); BUN Creatinine Ratio 14.3 (10-20); Calcium 8.8 mg/dl (8.5-10.1); Creatinine Clr Calc Pharmacy 72.6 ml/min; Est GFR (African American) 61.6 ml/min; Est GFR (Non-African American) 53.2 ml/min; Potassium 3.8 mmol/L (3.5-5.1)
[2021-02-16 07:02] LABS: Albumin Globulin Ratio 0.8 (0.9-2); Bilirubin,Total 0.5 mg/dl (0.2-1); Globulin 3.6 gm/dl (2.5-4.0); Total Protein 6.5 gm/dl (6.4-8.2)
[2021-02-16] MEDS: PANTOprazole 40 MG in SYRINGE 0 ML IV SCH (08:34)
[2021-02-16] MEDS: DICLOFENAC SODIUM 25 MG TABDR PO SCH (08:35)
[2021-02-16] MEDS: HEPARIN SOD 5,000 UNIT/0.5 ML VIAL SQ SCH (08:35)
[2021-02-16] MEDS: ATENOLOL 50 MG TABLET PO SCH (08:35)
[2021-02-16] MEDS: DICLOFENAC SOD 1% GEL 100 GM TUBE EXT SCH (08:36)
[2021-02-16] MEDS ORDERED: ASPIRIN 81 MG ECTAB PO SCH (09:00)
[2021-02-16] MEDS ORDERED: FUROSEMIDE 20 MG TAB PO SCH (09:00)
[2021-02-16] MEDS ORDERED: AMOXICILLIN 500 MG CAP PO SCH (09:00)
--- NOTE | 2021-02-16 18:29 | Discharge Summary ---
Date of Service February 16, 2021 Admission HPI Per Admitting Provider 60-year-old lady with past medical history of HTN, leg edema on Lasix, section, bilateral knee replacement recently on diclofenac since last 6 months and morbid obesity presented to our ED 02/14 with sudden onset of right upper quadrant pain and worsening of her chronic heartburn symptoms. Per patient, she has been having on and off heartburn symptoms since last 6 months which will get resolved with [id number] Tums and Prilosec. Also, she states that she was started on diclofenac around 6 months ago for her ongoing knee pain. Patient reports that her heartburn woke her up at around 2 AM today morning and found herself having right upper belly pain and dry heaving as well She has not eaten any food since 8 PM yesterday. She feels nauseous but has not vomited. Patient reports that right upper belly pain is new in this chronic 6 months on and off ongoing heartburn signs and symptoms. Patient does not smoke, drinks alcohol occasionally [twice a month] and does not use recreational drugs. ROS: Patient denies fever/chills/chest pain/palpitations/acute changes in her bowel or bladder habits/increased swelling of her lower extremity. No personal history of stroke/ME/asthma/COPD/cancer. No family history of cancer or ME. Family history positive for stroke in father at age 50, also positive in uncle and grandfather. Hence patient is on aspirin for stroke prophylaxis. Patient is full code. All the medications were reviewed with the patient. Admission Exam Per Admitting Provider GENERAL: Alert and oriented x3. NAD, on RA. Morbid obesity. HEENT: No pallor, no icterus. Pupils equal, round and reactive to light. Oral mucosa moist. NECK: No JVD, no neck masses. HEART: S1 and S2 heard. Regular rate and rhythm. No murmur, no gallop. RESPIRATORY SYSTEM: Normal AP diameter. No accessory muscle use. No wheezing, no crackles. ABDOMEN: Soft, bowel sounds present, RUQ and epigastric tenderness noted, no distention. CENTRAL NERVOUS SYSTEM: Alert and oriented x3. No facial droop. Speech is clear. Obeys simple commands. Moves extremities. EXTREMITIES: No edema, no erythema seen.-year-old male CAT scan showing obstruction Findings: Principal Diagnosis Acute cholecystitis GERD Discharge Exam GENERAL: Alert and oriented x3. NAD, on RA. Morbid obesity. HEENT: No pallor, no icterus. Pupils equal, round and reactive to light. Oral mucosa moist. NECK: No JVD, no neck masses. HEART: S1 and S2 heard. Regular rate and rhythm. No murmur, no gallop. RESPIRATORY SYSTEM: Normal AP diameter. No accessory muscle use. No wheezing, no crackles. ABDOMEN: Soft, bowel sounds present, RUQ and epigastric tenderness resolved, no distention. Clean dressing over lap tereza access sites. CENTRAL NERVOUS SYSTEM: Alert and oriented x3. No facial droop. Speech is clear. Obeys simple commands. Moves extremities. EXTREMITIES: No edema, no erythema seen. Discharge Data Allergies Allergy/AdvReac Type Severity Reaction Status Date / Time No Known Allergies Allergy Unverified 12/08/19 10:30 Consultations 02/14/21 17:39 ED Decision to Admit Stat 02/14/21 18:01 Consult General Surgery Stat Procedures Performed Operation Date: 02/15/21 08:05 Actual Procedures p Laparoscopic Cholecystectomy - Maral Lama MD Ordered Studies 02/14/21 13:44 US gallbladder Stat 02/14/21 16:46 CT abd pelvis IV con only Stat Hospital Course (1) Acute cholecystitis due to biliary calculus: (2) Morbid obesity: 60-year-old lady with past medical history of HTN, leg edema on Lasix, section, bilateral knee replacement recently on diclofenac since last 6 months and morbid obesity presented to our ED 02/14 with sudden onset of right upper quadrant pain and worsening of her chronic heartburn symptoms. She was managed for the following: #. Acute cholecystitis Admitting WBC 13 point 4K, does not meet SIRS criteria. Admitting US gallbladder: Cholelithiasis, concern for choledocholithiasis, hepatic steatosis Admitting CTAP: Distended gallbladder with mild wall thickening and perichol ecystic fluid suspicious for cholecystitis. Redemonstration of biliary ductal dilation and questionable choledocholithiasis as with USG above s/p laparoscopic cholecystectomy by Dr. Lama - 02/15 Patient was given IV Zosyn while inpatient, patient tolerated advancement of diet, patient reported improvement in her epigastric and right upper quadrant pain. #. Elevated blood pressure Patient has history of hypertension, on atenolol Admitting blood pressure 171/89 Blood pressure fairly under control with resolution of her acute event. #. GERD Patient has heartburn symptoms on and off since last 6 months around which time she was started on diclofenac Was put on diclofenac gel rather than oral for her bilateral knee pain. Continue PPI twice daily, advised to avoid NSAIDs in future, advised to follow- up with GI doctor as an outpatient #. Other chronic medical condition: Stroke prophylaxis, chronic knee pain. Continue aspirin, start diclofenac gel. #. 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 Full code Following instructions were communicated to the patient at the point of dis charge: Follow-up with your primary care physician within a week time. Follow-up with your surgeon [Dr. Lama] as scheduled. Take medications as prescribed. Do not use any NSAIDs [diclofenac tablets or Motrin or Aleve] for you have worsening GERD, you have been prescribed pantoprazole, advised to establish and follow-up with your GI doctor. Total Time Total Time Spent Total Time Spent (In Minutes): 35 Discharge Plan Discharge Items Patient Disposition: Home - Self-Care Reason For Visit: ACUTE CHOLECYSTITIS Discharge Diagnosis: Acute cholecystitis Status post lap tereza Activity: Per Instructions section Non-emergency contact: Primary Care Provider and Surgeon Call non-emergency contact if: your pain is worsening, your pain is concerning for you, your temperature is above 101, your wound has increased redness, your wound has increased drainage and your wound pain has increased Follow-up/Referrals: Maral Lama MD [Physician] - Charlotte Diamond PA-C [Primary Care Provider] - Diet: Low Fat Addtl Attending Provider Instructions: Follow-up with your primary care physician within a week time. Follow-up with your surgeon [Dr. Lama] as scheduled. Take medications as prescribed. Do not use any NSAIDs [diclofenac tablets or Motrin or Aleve] for you have worsening GERD, you have been prescribed pantoprazole, advised to establish and follow-up with your GI doctor. Addtl Doughnut Icer Provider Instructions: Post-Surgical ~Discharge Instructions Activity Recommendations: - lifting limitation: (25 pounds for 4 weeks), - exercise/sex/sports limit: (nonstrenuous for 2 weeks), - driving or machine use limit: (none for 1 week or until pain free and no longer taking narcotic pain medication, - Shower/bathe limit: (august shower beginning Thursday, no submerging incisions underwater for 2 weeks) Diet: - Resume previous diet SPECIAL CARE INSTRUCTIONS: - May shower on Thursday, Sponge bath and wash hair in meantime. On Thursday, remove outer dressings and shower. Let water run over area and pat dry. - Leave steri strips on for one week and then remove. - Call the surgeon's office with any questions or concerns - - (ex. temperature higher than 101 degrees F, excessive bleeding or pain). MEDICATIONS: - Resume previous medications unless instructed otherwise by your surgeon. - May alternate extra strength Tylenol and Ibuprofen as needed for mild to moderate pain -650 mg Tylenol every 6 hours as needed - Ibuprofen 600 mg every 6 hours as needed, take with food - Percocet 1 every 4 hours, as needed for moderate to severe pain - Recommend daily stool softener (Colace) while taking narcotic pain medication to prevent constipation or straining. FOLLOW UP VISIT: - If not already scheduled, please call the office to schedule a two week follow-up appointment. Office number Pending Studies at Discharge: Yes (gallbladder pathology) Stand-Alone Forms: My [facility] [id number], Smoking Cessation Medications and DC Order Prescriptions: New diclofenac sodium [Voltaren Arthritis Pain] 1 % Gel 2 g EXT TID PRN (Reason: pain) Qty: 100 RF: 0 pantoprazole 40 mg tablet,delayed release (DR/EC) 40 mg PO DAILY Qty: 30 RF: 0 oxycodone-acetaminophen [Percocet] 5-325 mg tablet 1 tab PO Q12H 3 Days Qty: 6 RF: 0 Continued aspirin 81 mg Tablet,Delayed Release (Dr/Ec) 81 mg PO QAM RF: 0 furosemide 20 mg Tablet 20 mg PO QAM RF: 0 atenolol [Tenormin] 50 mg Tablet 50 mg PO QAM RF: 0 acetaminophen [Tylenol Extra Strength] 500 mg Tablet 1,000 mg PO Q6H PRN (Reason: Pain) RF: 0 amoxicillin 500 mg capsule 500 mg PO DAILY RF: 0 Discontinued diclofenac sodium 50 mg tablet,delayed release (DR/EC) 50 mg PO BID Qty: 60 RF: 2 ibuprofen 200 mg Tablet 600 mg PO Q6H PRN (Reason: Pain) RF: 0 Discharge Orders: Discharge Order (Routine); Ordered 02/16/21 Ordered By: Juan Pickering Admission Data Admit Date/Time: 02/14/21 18:50 Attending Provider: Juan Pickering Admit Provider: Juan Pickering Primary Care Provider: Charlotte Diamond Other Providers: Juan Pickering ; Maral Lama Other Interventions: Discharge Summary Assessment (RN) Last Done: 02/16/21 13:17
== END 2021-02-16 14:30 | disposition home or self-care (01) | DRG 418 ==
LOC: ED 11:55 → 3N 18:50

== ENCOUNTER 2022-07-29 12:51 | Observation (INO) ==
--- NOTE | 2022-07-29 13:15 | Emergency Department Note ---
Impression & Plan TIA (transient ischemic attack), Right-sided carotid artery disease ED Provider Note NAME: DEVON ELDER AGE: 61 SEX: F : 1960 ARRIVES VIA: Walk-In INFORMANT: Patient, ED PROVIDER(S): Danny Holder DO CHIEF COMPLAINT: Strokelike symptoms HPI: The patient is a 61-year-old female who presented to the emergency department for an evaluation of strokelike symptoms. The patient states approximately 30 minutes prior to coming to the emergency department she was at work. She states that she felt "off". She started noticing her vision was closing. She describes it as a curtain dropping over her vision. She states he then noticed that the inner part of her vision field was cloudy and fuzzy. She states that the symptoms are now resolved. She also noticed some numbness over her extremities yesterday. She states that her vision is cleared. Her boss came to the emergency department with her and states that she was having dif ficulty speaking. She was having word finding as well as trouble getting words out. The symptoms have resolved. The patient states she still does not feel baseline. She states that she feels cloudy and in a fog. She also notices a slight headache. She has no history of stroke or TIA. She has no history of atrial fibrillation but does have a history of hypertension. She states that she has been compliant with her outpatient medications otherwise. ROS: See above HPI for pertinent positives & negatives. A total of 10 systems reviewed and were otherwise negative. PAST MEDICAL HISTORY: See Below PAST SURGICAL HISTORY: See Below FAMILY HISTORY: See Below SOCIAL HISTORY: See Below HOME MEDICATIONS: See Below ALLERGIES: See Below VITALS: See Below PHYSICAL EXAMINATION: GENERAL: The patient is awake and alert. The patient is anxious appearing. EYES: The conjunctivae are clear. The pupils are round and reactive. EARS, NOSE, MOUTH AND THROAT: The nose is without any evidence of any deformity. NECK: The neck is nontender and supple. There is no bruit noted to auscultation. RESPIRATORY: Normal respiratory effort is noted. There is no evidence of wheezing rhonchi or rales to auscultation. CARDIOVASCULAR: Regular rate and rhythm noted. There no murmurs rubs or gallops normal S1 normal S2 GASTROINTESTINAL: The abdomen is soft. Abdomen is nontender. MUSCULOSKELETAL/EXTREMITIES: There is no evidence of gross deformity. Full range of motion is noted in the hips and shoulders. SKIN: There is no obvious evidence of any rash. No edema was noted. There is no petechiae, pallor or cyanosis noted. NEUROLOGIC: Patient is awake alert and oriented x3. Strength is symmetric. Gait was steady. Speech was clear. There is no facial droop. MEDICAL DECISION MAKING: The patient is a 61-year-old female who presented to the emergency department for an evaluation of TIA symptoms. The patient appears to have an episode of amaurosis. The symptoms have almost completely resolved upon arrival to the emergency department. Her NIH was very low. The patient did not meet criteria for stroke alert as her condition continued to rapidly improve. Her work-up was positive for a right-sided carotid artery lesion which is likely the cause of her symptoms. She was treated with a full-strength aspirin in the emergency department. I discussed the patient's laboratory and radiographic studies with her. Her condition continued to improve as well as her blood pressure. The patient was felt to be a better candidate for inpatient management given her findings. I discussed her condition with the on-call [facility] hospitalist. They have agreed to evaluate the patient in the emergency department for further management and disposition. Triage Nursing notes reviewed. Prior medical records reviewed Vital Signs: reviewed and remarkable for elevated blood pressure. Differential diagnosis: Infection, dehydration, metabolic abnormality, hypo/hyperglycemia, electrolyte disturbance, anemia, hypoxia, cardiac sources, intracerebral event, toxicologic, neurologic, as well as other pathologies. ER treatment provided: See below Diagnostics interpreted by me: ECG: EKG was obtained in the emergency department. My interpretation is normal sinus rhythm at 80 bpm. There is no ectopy. There is no acute ST segment abnormalities noted. This was compared to a tracing from February 14, 2021. No changes were noted. Cardiac Monitoring: An order was placed for continuous cardiac monitoring. The monitor shows a rate of 70 bpm with sinus rhythm. Laboratory studies: As stated above and show below. Imaging studies: See below. Radiographic imaging was reviewed by myself Consultation(s): I discussed this case with Dr. Gonzalez Past Med/Surg History Medical History Encounter for pre-operative examination History of COVID-19 diagnosed 05/2020--asymptomatic (only tested for a cruise)--no symptoms now Hypertension Morbid obesity BMI 56 Osteoarthritis Right knee DJD Surgical History History of section History of D&C History of laparoscopic cholecystectomy History of right knee joint replacement History of surgery removal of fatty tumor off left leg History of total left knee replacement (TKR) History of total right knee replacement History of wisdom tooth extraction Nausea and vomiting after administration of anesthetic agent Status post total left knee replacement Family History Mother PONV (postoperative nausea and vomiting) Social History Smoking Status: Never smoker Second Hand Exposure: No; Hx Alcohol Use: Yes Alcohol type: beer Hx Substance Use: No Preferred Language: Kyrgyz Communication Ability: Effective Orthopedic Rn Required: No Beliefs That Will Affect Care: None marital status: Current Living Situation: Spouse and Family Current Living Situation Comment: Lives with and son Feels Safe at Home: Yes Assistive Devices: None Allergies Allergies Allergy/AdvReac Type Severity Reaction Status Date / Time No Known Allergies Allergy Verified 07/29/22 13:34 Home Meds Home Medications Medication Instructions Recorded Confirmed aspirin 81 mg tablet,delayed 81 mg PO QAM 11/01/19 07/29/22 release atenolol 50 mg tablet (Tenormin) 50 mg PO QAM 11/01/19 07/29/22 furosemide 20 mg tablet 20 mg PO QAM 11/01/19 07/29/22 atorvastatin 10 mg tablet 10 mg PO QAM 04/03/22 07/29/22 gabapentin 300 mg tablet 300 mg PO TID PRN Pain 04/03/22 07/29/22 lorazepam 0.5 mg tablet 0.5 mg PO TID PRN Anxiety 04/03/22 07/29/22 omega-3 fatty acids 1,000 mg PO DAILY 04/03/22 07/29/22 pantoprazole 40 mg tablet,delayed 40 mg PO QAM 04/03/22 07/29/22 release Results & Data (ED) Vital Signs Vital Signs - 24 hr 07/29/22 12:56 07/29/22 13:18 07/29/22 13:21 Temperature 36.5 C Temperature Source Temporal Artery Scan Oral Pulse Rate 82 75 Pulse Rate from SpO2 Sensor Respiratory Rate 20 20 Respiratory Effort / Characteristics Non-Labored Spontaneous Respiratory Depth Normal Blood Pressure 217/96 H Blood Pressure Mean 136 Pulse Oximetry 98 Oxygen Delivery Method Room Air Sepsis Recent Fever Within 48 Hours No Sepsis New/Unexplained Change in Mental Status No Sepsis Action Taken by Nursing No Action Required 07/29/22 13:30 07/29/22 14:00 07/29/22 15:00 Temperature Temperature Source Pulse Rate 72 74 71 Pulse Rate from SpO2 Sensor 71 Respiratory Rate 12 19 14 Respiratory Effort / Characteristics Respiratory Depth Blood Pressure Blood Pressure Mean Pulse Oximetry 97 Oxygen Delivery Method Sepsis Recent Fever Within 48 Hours Sepsis New/Unexplained Change in Mental Status Sepsis Action Taken by Nursing 07/29/22 15:04 07/29/22 15:04 07/29/22 15:30 Temperature Temperature Source Pulse Rate 80 70 Pulse Rate from SpO2 Sensor 79 71 Respiratory Rate 17 15 Respiratory Effort / Characteristics Respiratory Depth Blood Pressure 210/86 H Blood Pressure Mean 127 Pulse Oximetry 99 98 Oxygen Delivery Method Sepsis Recent Fever Within 48 Hours Sepsis New/Unexplained Change in Mental Status Sepsis Action Taken by Nursing 07/29/22 16:00 07/29/22 16:28 07/29/22 16:30 Temperature Temperature Source Pulse Rate 75 73 Pulse Rate from SpO2 Sensor 75 Respiratory Rate 21 Respiratory Effort / Characteristics Respiratory Depth Blood Pressure 173/97 H Blood Pressure Mean 122 Pulse Oximetry 100 Oxygen Delivery Method Sepsis Recent Fever Within 48 Hours Sepsis New/Unexplained Change in Mental Status Sepsis Action Taken by Nursing 07/29/22 16:30 Temperature Temperature Source Pulse Rate 70 Pulse Rate from SpO2 Sensor 72 Respiratory Rate 17 Respiratory Effort / Characteristics Respiratory Depth Blood Pressure Blood Pressure Mean Pulse Oximetry 99 Oxygen Delivery Method Sepsis Recent Fever Within 48 Hours Sepsis New/Unexplained Change in Mental Status Sepsis Action Taken by Correction Medications Current Medication List: was personally reviewed by ia Laboratory Data 07/29/22 13:10 07/29/22 13:10 Lab Results 07/29/22 07/29/22 07/29/22 Range/Units 13:10 13:10 13:10 WBC 9.59 (4.8-10.8) K/ul RBC 4.69 (4.20-5.40) M/uL Hgb 14.5 (12.0-16.0) g/dl Hct 42.6 (37.0-47.0) % MCV 90.8 (80.0-100.0) fL MCH 30.9 (25.0-34.0) pg MCHC 34.0 (32.0-36.0) g/dL RDW Std Deviation 42.0 (36.4-46.3) fL RDW Coeff of Sarika 12.8 (11.5-14.5) % Plt Count 368 (130-400) K/uL MPV 10.0 (9.4-12.4) fL Immature Gran % (Auto) 0.2 % Neut % (Auto) 64.7 % Lymph % (Auto) 17.9 % Elmore % (Auto) 9.8 % Eos % (Auto) 6.6 % Baso % (Auto) 0.8 % Neut # (Auto) 6.20 (1.40-6.50) K/uL Lymph # (Auto) 1.72 (1.2-3.4) K/uL Elmore # (Auto) 0.94 H (0.11-0.59) K/uL Eos # (Auto) 0.63 H (0-0.50) K/uL Baso # (Auto) 0.08 (0-0.2) K/uL Immature Gran # (Auto) 0.02 (0.01-0.20) K/uL PT 10.3 (9.0-12.0) Seconds INR 1.0 (0.9-1.1) APTT 28.0 (21.0-31.0) Seconds PTT Ratio 1.0 Sodium 139 (136-145) mmol/L Potassium 3.7 (3.5-5.1) mmol/L Chloride 101 (98-107) mmol/L Carbon Dioxide 29 (21-32) mmol/L Anion Gap 9 (3-11) BUN 17 (6-23) mg/dl Creatinine 0.89 (0.6-1.2) mg/dl Est Cr Clr Drug Dosing 91.7 ml/min Est GFR ( Amer) 81.6 ml/min Est GFR (Non-Af Amer) 70.4 ml/min BUN/Creatinine Ratio 19.1 (10-20) Glucose 128 H (70-99(Fasting)) mg/dl POC Glucose (70-99) mg/dl Calcium 9.5 (8.6-10.3) mg/dl Magnesium 1.8 (1.7-2.4) mg/dl Total Bilirubin 0.5 (0.2-1.0) mg/dl AST 19 (13-39) U/L ALT 19 (7-52) U/L Alkaline Phosphatase 87 (34-104) U/L Troponin I High Sens 5.4 (0-14) pg/ml Total Protein 7.2 (6.0-8.3) gm/dl Albumin 4.4 (3.4-5.0) gm/dl Globulin 2.8 (2.5-4.0) gm/dl Albumin/Globulin Ratio 1.6 (0.9-2) Urine Color Urine Appearance (Clear) Urine pH (4.5-7.5) Ur Specific [place] (1.000-1.030) Urine Protein (Negative) Urine Glucose (UA) (Negative) Urine Ketones (Negative) Urine Blood (Negative) Urine Nitrite (Negative) Urine Bilirubin (Negative) Urine Urobilinogen (Negative) Ur Leukocyte Esterase (Negative) SARS-CoV-2, RNA, NAAT (NEGATIVE) 07/29/22 07/29/22 07/29/22 Range/Units 13:11 14:31 15:00 WBC (4.8-10.8) K/ul RBC (4.20-5.40) M/uL Hgb (12.0-16.0) g/dl Hct (37.0-47.0) % MCV (80.0-100.0) fL MCH (25.0-34.0) pg MCHC (32.0-36.0) g/dL RDW Std Deviation (36.4-46.3) fL RDW Coeff of Sarika (11.5-14.5) % Plt Count (130-400) K/uL MPV (9.4-12.4) fL Immature Gran % (Auto) % Neut % (Auto) % Lymph % (Auto) % [place] % (Auto) % Eos % (Auto) % Baso % (Auto) % Neut # (Auto) (1.40-6.50) K/uL Lymph # (Auto) (1.2-3.4) K/uL Elmore # (Auto) (0.11-0.59) K/uL Eos # (Auto) (0-0.50) K/uL Baso # (Auto) (0-0.2) K/uL Immature Gran # (Auto) (0.01-0.20) K/uL PT (9.0-12.0) Seconds INR (0.9-1.1) APTT (21.0-31.0) Seconds PTT Ratio Sodium (136-145) mmol/L Potassium (3.5-5.1) mmol/L Chloride (98-107) mmol/L Carbon Dioxide (21-32) mmol/L Anion Gap (3-11) BUN (6-23) mg/dl Creatinine (0.6-1.2) mg/dl Est Cr Clr Drug Dosing ml/min Est GFR ( Amer) ml/min Est GFR (Non-Af Amer) ml/min BUN/Creatinine Ratio (10-20) Glucose (70-99(Fasting)) mg/dl POC Glucose 128 H (70-99) mg/dl Calcium (8.6-10.3) mg/dl Magnesium (1.7-2.4) mg/dl Total Bilirubin (0.2-1.0) mg/dl AST (13-39) U/L ALT (7-52) U/L Alkaline Phosphatase (34-104) U/L Troponin I High Sens (0-14) pg/ml Total Protein (6.0-8.3) gm/dl Albumin (3.4-5.0) gm/dl Globulin (2.5-4.0) gm/dl Albumin/Globulin Ratio (0.9-2) Urine Color Yellow Urine Appearance Clear (Clear) Urine pH 6.5 (4.5-7.5) Ur Specific [place] 1.010 (1.000-1.030) Urine Protein Negative (Negative) Urine Glucose (UA) Negative (Negative) Urine Ketones Negative (Negative) Urine Blood Negative (Negative) Urine Nitrite Negative (Negative) Urine Bilirubin Negative (Negative) Urine Urobilinogen Negative (Negative) Ur Leukocyte Esterase Negative (Negative) SARS-CoV-2, RNA, NAAT NEGATIVE (NEGATIVE) Administered Medications Discontinued Medications Aspirin (Aspirin Chew 324 Mg) 324 mg PO NOW STA Stop: 07/29/22 15:36 Last Admin: 07/29/22 16:31 Dose: 324 mg Documented By: JPG Ioversol (Optiray 320 500ml) 102 ml IV ONCE ONE Stop: 07/29/22 14:20 Last Admin: 07/29/22 14:20 Dose: 102 ml Documented By: IZAIAH Imaging Data Attestation: I personally reviewed and interpreted this imaging study as follows: My Impression: 1 view chest x-ray was obtained in the emergency department. My interpretation is no acute disease, final report below Radiologist's Impression: Chest X-Ray 07/29/22 13:04 XR chest 1V portable CLINICAL HISTORY: neuro deficit, acute stroke suspected TECHNIQUE: Single frontal radiograph of the chest was obtained. Comparison: None available at the time of this dictation. FINDINGS: Exam is limited by underpenetration. The cardiomediastinal silhouette is normal. The lungs are clear. No evidence of pleural effusion or pneumothorax. IMPRESSION: No acute chest disease. ACT 112: Negative or not required by law. Electronically signed by: Kyaw Capellan M.D. 07/29/2022 1:[address] 07/29/22 13:04 CT OF THE HEAD WITHOUT CONTRAST CLINICAL HISTORY: neuro deficit, acute stroke suspected COMPARISON STUDY: No previous studies for comparison. CT DOSE: 1135.00 mGy.cm TECHNIQUE: Helical axial images of the head were obtained without IV contrast. Automated exposure control was utilized for the study. A dose lowering technique was utilized adhering to the principles of ALARA. FINDINGS: No acute intracranial hemorrhage, midline shift or mass effect is present. The ventricular system is unremarkable. The basal cisterns are patent. No extra-axial collections are present. There are no findings to suggest acute dural sinus thrombosis or acute territorial infarct. No significant calvarial abnormalities are present. Visualized portions of the sinuses and mastoid air cells are clear. IMPRESSION: No acute intracranial findings. ACT 112: Negative or not required by law. Electronically signed by: Amol Griggs M.D. 07/29/2022 2:47 PM Head CTA 07/29/22 13:04 CTA ANGIOGRAPHY OF THE HEAD CLINICAL HISTORY: neuro deficit, acute stroke suspected COMPARISON STUDY: No previous studies for comparison. TECHNIQUE: Helical axial images of the head were obtained following uneventful intravenous administration of 102 cc of Optiray. Sagittal and coronal reconstructions were viewed as well as maximal intensity projections on an independent 3-D workstation. Automated exposure control was utilized for the study. A dose lowering technique was utilized adhering to the principles of ALARA. FINDINGS: No acute intracranial hemorrhage is identified on the head CT which will be reported separately. Ventricular system is normal. Basal cisterns are patent. There are no extra-axial collections. There is moderate plaque within the bilateral cavernous carotids without significant stenosis. No central vessel occlusion is identified. The posterior circulation is intact. There is persistence of the right posterior cerebral artery. There is no intracranial aneurysm. There is no dissection within the intracranial vessels. IMPRESSION: No central vessel occlusion. No intracranial aneurysm. ACT 112: Negative or not required by law. Electronically signed by: Amol Griggs M.D. 07/29/2022 2:50 PM Neck CTA 07/29/22 13:04 CT angio neck with con CLINICAL HISTORY: 61 years-old Female with neuro deficit, acute stroke suspected. Acute strokelike symptoms COMPARISON STUDY: CTA had of same day TECHNIQUE: Following the IV administration of 10 2 mL of Optiray, CT angiogram of the neck was performed from the aortic arch to the skull base. Images are r eviewed in the axial, sagittal, and coronal planes. 3-D MIPS images are created and assessed. IV contrast was administered without complication. All measurements were calculated based on NASCET criteria. A dose lowering technique was utilized adhering to the principles of ALARA. FINDINGS: Three-vessel morphology of the thoracic aortic arch. Patency of the nominate and imaged subclavian arteries. The common carotid arteries are widely patent. Moderate to extensive atherosclerotic plaque of the carotid bulbs and proximal cervical segments of the internal carotid arteries. There is less than 50% stenosis of the left ICA. There is high-grade (greater than 90% stenosis) within the proximal cervical segment right ICA with only trickle flow noted on image 19 9. The remainder of the right internal carotid artery is patent with atherosclerotic plaque noted involving the cavernous and clinoid segments. Codominant and patent vertebral arteries. The basilar artery appears patent. Lung apices appear clear. No pneumothorax. Subcentimeter hypodense left-sided thyroid nodule. Mild mediastinal lymphadenopathy with paratracheal lymph nodes measure up to 10 mm. Additional cervical chain and supraclavicular lymph nodes measure up to 1.1 cm. Degenerative changes of the cervical spine. Cardiomegaly. IMPRESSION: 1. Atherosclerotic plaque of the right carotid bulb results in high-grade stenosis of greater than 90% within the proximal cervical segment of the right ICA. 2. Less than 50% stenosis of the proximal cervical segment left ICA. 3. Nonspecific mild cervical chain, mediastinal and supraclavicular lymphadenopathy. ACT 112: Negative or not required by law. The above report was generated using voice recognition software. It may contain grammatical, syntax or spelling errors. Electronically signed by: Rosas Street M.D. 07/29/2022 3:12 PM Discharge Plan Visit Data Chief Complaint: TIA Symptoms Stated Complaint: partial lose of vision, slurring of words, ED Provider: Danny Holder Discharge Problem: TIA (transient ischemic attack), Right-sided carotid artery disease Patient Disposition: Admitted As Inpatient Discharge Instructions Interventions: ED Discharge Assessment Last Done: 07/29/22 17:37 Right-sided carotid artery disease Qualifiers: Carotid artery disease type: unspecified Qualified Code(s): I77.9 - Disorder of arteries and arterioles, unspecified
--- NOTE | 2022-07-29 13:33 | XRay Report ---
XR chest 1V portable CLINICAL HISTORY: neuro deficit, acute stroke suspected TECHNIQUE: Single frontal radiograph of the chest was obtained. Comparison: None available at the time of this dictation. FINDINGS: Exam is limited by underpenetration. The cardiomediastinal silhouette is normal. The lungs are clear. No evidence of pleural effusion or pneumothorax. IMPRESSION: No acute chest disease. ACT 112: Negative or not required by law. Electronically signed by: Kyaw Capellan M.D. 07/29/2022 1:32 PM
[2022-07-29 13:36] LABS: Basophils # (auto) 0.08 K/uL (0-0.2); Basophils % (auto) 0.8 %; Eosinophils # (auto) 0.63 K/uL (0-0.50); Eosinophils % (auto) 6.6 %; Hematocrit (blood only) 42.6 % (37.0-47.0); Hemoglobin 14.5 g/dl (12.0-16.0); Immature Granulocytes # (auto) 0.02 K/uL (0.01-0.20); Immature Granulocytes % (auto) 0.2 %; Lymphocytes # (auto) 1.72 K/uL (1.2-3.4); Lymphocytes % (auto) 17.9 %; Mean Corpuscular Hemoglobin 30.9 pg (25.0-34.0); Mean Corpuscular Volume 90.8 fL (80.0-100.0); Monocytes # (auto) 0.94 K/uL (0.11-0.59); Monocytes % (auto) 9.8 %; Neutrophils % (auto) 64.7 %; Platelet Count 368 K/uL (130-400); RDW Coefficient of Variation 12.8 % (11.5-14.5); Red Blood Count 4.69 M/uL (4.20-5.40); White Blood Count 9.59 K/ul (4.8-10.8)
[2022-07-29 13:44] LABS: Albumin Globulin Ratio 1.6 (0.9-2); Albumin Level 4.4 gm/dl (3.4-5.0); BUN Creatinine Ratio 19.1 (10-20); Bilirubin,Total 0.5 mg/dl (0.2-1.0); Calcium 9.5 mg/dl (8.6-10.3); Creatinine Clr Calc Pharmacy 91.7 ml/min; Est GFR (African American) 81.6 ml/min; Est GFR (Non-African American) 70.4 ml/min; Globulin 2.8 gm/dl (2.5-4.0); Magnesium 1.8 mg/dl (1.7-2.4); Potassium 3.7 mmol/L (3.5-5.1); Total Protein 7.2 gm/dl (6.0-8.3)
[2022-07-29 13:50] LABS: Troponin I High Sensitivity 5.4 pg/ml (0-14)
[2022-07-29 13:58] LABS: Prothrombin Time 10.3 Seconds (9.0-12.0)
[2022-07-29] MEDS ORDERED: OPTIRAY 320 500ml IV ONE (14:19)
--- NOTE | 2022-07-29 14:48 | CT Scan Report ---
CT OF THE HEAD WITHOUT CONTRAST CLINICAL HISTORY: neuro deficit, acute stroke suspected COMPARISON STUDY: No previous studies for comparison. CT DOSE: 1135.00 mGy.cm TECHNIQUE: Helical axial images of the head were obtained without IV contrast. Automated exposure con trol was utilized for the study. A dose lowering technique was utilized adhering to the principles o f ALARA. FINDINGS: No acute intracranial hemorrhage, midline shift or mass effect is present. The ventricular system is unremarkable. The basal cisterns are patent. No extra-axial collections are present. There are no findings to suggest acute dural sinus thrombosis or acute territorial infarct. No significant calvarial abnormalities are present. Visualized portions of the sinuses and mastoid air cells are shelli ar. IMPRESSION: No acute intracranial findings. ACT 112: Negative or not required by law. Electronically signed by: Amol Griggs M.D. 07/29/2022 2:47 PM
--- NOTE | 2022-07-29 14:51 | CT Scan Report ---
CTA ANGIOGRAPHY OF THE HEAD CLINICAL HISTORY: neuro deficit, acute stroke suspected COMPARISON STUDY: No previous studies for comparison. TECHNIQUE: Helical axial images of the head were obtained following uneventful intravenous administr ation of 102 cc of Optiray. Sagittal and coronal reconstructions were viewed as well as maximal inten sity projections on an independent 3-D workstation. Automated exposure control was utilized for the study. A dose lowering technique was utilized adhering to the principles of ALARA. FINDINGS: No acute intracranial hemorrhage is identified on the head CT which will be reported separa tely. Ventricular system is normal. Basal cisterns are patent. There are no extra-axial collections. There is moderate plaque within the bilateral cavernous carotids without significant stenosis. No francisco javier tral vessel occlusion is identified. The posterior circulation is intact. There is persistence of the right posterior cerebral artery. There is no intracranial aneurysm. There is no dissection wit hin the intracranial vessels. IMPRESSION: No central vessel occlusion. No intracranial aneurysm. ACT 112: Negative or not required by law. Electronically signed by: Amol Griggs M.D. 07/29/2022 2:50 PM
[2022-07-29 15:07] LABS: Appearance Urine Clear (Clear); Bilirubin Urine Negative (Negative); Blood Urine Negative (Negative); Color Urine Yellow; Glucose Urine UA Negative (Negative); Ketones Urine Negative (Negative); Leukocyte Esterase Urine Negative (Negative); Nitrite Urine Negative (Negative); Protein Urine Negative (Negative); Urobilinogen Urine Negative (Negative); pH Urine 6.5 (4.5-7.5)
--- NOTE | 2022-07-29 15:13 | CT Scan Report ---
CT angio neck with con CLINICAL HISTORY: 61 years-old Female with neuro deficit, acute stroke suspected. Acute strokelike symptoms COMPARISON STUDY: CTA had of same day TECHNIQUE: Following the IV administration of 10 2 mL of Optiray, CT angiogram of the neck was perfor med from the aortic arch to the skull base. Images are reviewed in the axial, sagittal, and coronal p lanes. 3-D MIPS images are created and assessed. IV contrast was administered without complication. A ll measurements were calculated based on NASCET criteria. A dose lowering technique was utilized adh ering to the principles of ALARA. FINDINGS: Three-vessel morphology of the thoracic aortic arch. Patency of the nominate and imaged subclavian ar teries. The common carotid arteries are widely patent. Moderate to extensive atherosclerotic plaque o f the carotid bulbs and proximal cervical segments of the internal carotid arteries. There is less th an 50% stenosis of the left ICA. There is high-grade (greater than 90% stenosis) within the proximal cervical segment right ICA with only trickle flow noted on image 199. The remainder of the right inte rnal carotid artery is patent with atherosclerotic plaque noted involving the cavernous and clinoid s egments. Codominant and patent vertebral arteries. The basilar artery appears patent. Lung apices appear clear. No pneumothorax. Subcentimeter hypodense left-sided thyroid nodule. Mild me diastinal lymphadenopathy with paratracheal lymph nodes measure up to 10 mm. Additional cervical ayla n and supraclavicular lymph nodes measure up to 1.1 cm. Degenerative changes of the cervical spine. C ardiomegaly. IMPRESSION: 1. Atherosclerotic plaque of the right carotid bulb results in high-grade stenosis of greater than 90 % within the proximal cervical segment of the right ICA. 2. Less than 50% stenosis of the proximal cervical segment left ICA. 3. Nonspecific mild cervical chain, mediastinal and supraclavicular lymphadenopathy. ACT 112: Negative or not required by law. The above report was generated using voice recognition software. It may contain grammatical, syntax o r spelling errors. Electronically signed by: Rosas Street M.D. 07/29/2022 3:12 PM
[2022-07-29] MEDS ORDERED: ASPIRIN CHEW 324 MG PO STA (15:35)
--- NOTE | 2022-07-29 15:43 | History & Physical Report ---
Date of Service July 29, 2022 Assessment & Plan (1) TIA (transient ischemic attack): (2) Right-sided carotid artery disease: (3) Morbid obesity: (4) Hyperlipidemia: Plan Vision field defect Word finding difficulty -Symptoms now resolved, concern for TIA -Observation for stroke workup -CTA head/neck reveals right 90% proximal ICA lesion and left 50% proximal ICA lesion -patient on daily aspirin 81mg daily, will add plavix. Increase atorvastatin to 40mg daily (previously was on 10mg ) -check lipid panel, HA1c -MRI brain and TTE ordered -Consult Neurology -labetalol PRN for SBP above 180 Morbid obesity -ongoing weight loss cousneling HTN -continue atenolol, lasix with hold parameters -Allow permissive hypertension pending stroke workup DVT ppx -SCDs Dispo -PCU/Telemetry -Observation Code status -Full History of Present Illness Chief Complaint: vision changes Primary Care Provider: Charlotte Diamond PA-C Ms Pretty Levy is a 61 year old female with history of HLD, HTN, prediabetes, GERD, morbid obesity presents with vision changes. Patient did not feel well yesterday, just "different, odd". This morning, also felt "odd". At work she was having word finding difficulty and then around 1130am his right eye she lost vision on the top portion (still able to see things on bottom). This vision change lasted about 1 minute, the vision got a little blurry then she lost vision on her right eye. That lasted for 1-2 minutes. She called her friend who brought her to the ER. She has been having right neck pain and she has been rubbing her neck at home. Patient was in her usual state of health until 30 minutes before coming to the ER when she was at work and suddenly describes a "curtain coming over her vision". During this time, she was experiencing word finding difficulty. Symptoms resolved by the time she arrived to ER but she still feels "off" and not quite herself. In the ER, noted to have an elevated BP of 210/86. CT head negative for acute findings. CTA head/neck significant for 90% right proximal ICA stenosis and 50% left proximal ICA stenosis. She is already on aspirin 81mg daily. In the ER, she received aspirin 324mg. ROS- denies chest pain, shortness of breath, fevers/chills, diarrhea, urinary symptoms En route to hospital, she was shaky and felt flushed, slightly nauseous but no vomiting Earlier she had a headache which has since resolved. Allergies Allergy/AdvReac Type Severity Reaction Status Date / Time No Known Allergies Allergy Verified 07/29/22 13:34 Home Medications Medication Instructions Recorded Confirmed Type aspirin 81 mg tablet,delayed 81 mg PO QAM 11/01/19 07/29/22 History release atenolol 50 mg tablet (Tenormin) 50 mg PO QAM 11/01/19 07/29/22 History furosemide 20 mg tablet 20 mg PO QAM 11/01/19 07/29/22 History atorvastatin 10 mg tablet 10 mg PO QAM 04/03/22 07/29/22 History gabapentin 300 mg tablet 300 mg PO TID PRN Pain 04/03/22 07/29/22 History lorazepam 0.5 mg tablet 0.5 mg PO TID PRN Anxiety 04/03/22 07/29/22 History omega-3 fatty acids 1,000 mg PO DAILY 04/03/22 07/29/22 History pantoprazole 40 mg tablet,delayed 40 mg PO QAM 04/03/22 07/29/22 History release Past Med/Surg History Medical History Encounter for pre-operative examination History of COVID-19 diagnosed 05/2020--asymptomatic (only tested for a cruise)--no symptoms now Hypertension Morbid obesity BMI 56 Osteoarthritis Right knee DJD Surgical History History of section History of D&C History of laparoscopic cholecystectomy History of right knee joint replacement History of surgery removal of fatty tumor off left leg History of total left knee replacement (TKR) History of total right knee replacement History of wisdom tooth extraction Nausea and vomiting after administration of anesthetic agent Status post total left knee replacement Family History Mother PONV (postoperative nausea and vomiting) Social History Smoking Status: Never smoker Second Hand Exposure: No; Hx Alcohol Use: Yes Alcohol type: beer Hx Substance Use: No Preferred Language: [place] Communication Ability: Effective 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 Beliefs That Will Affect Care: None marital status: Current Living Situation: Spouse and Family Current Living Situation Comment: Lives with and son Feels Safe at Home: Yes Assistive Devices: None Review of Systems Review of Systems: As above in HPI, remaining ROS otherwise negative Physical Exam Physical Exam: Obese, no acute distress, non toxic ENMT: Normocephalic, atraumatic, mucous membrane moist Neck: Neck thick Respiratory: Breathing comfortably on room air, no wheezing/rhonchi/rales Cardiovascular: regular rate and rhythm, no murmurs/rubs/gallops Gastrointestinal (Abdomen): soft, non tender, non distended Musculoskeletal: no edema, no cyanosis or clubbing Skin: no rash, no bruising, no redness on exposed skin Neurologic: awake, alert, CN grossly intact, no visual field defect noted, 5/5 strength upper and lower extremity bilaterally Psychiatric: normal affect, speech linear, non pressured Results & Data Results & Data Vital Signs (Past 12 Hours) Vital Signs Temp Pulse Resp BP Pulse Ox O2 Del Method 07/29/22 15:04 210/86 H 07/29/22 15:04 80 17 99 07/29/22 15:00 71 14 97 07/29/22 14:00 74 19 07/29/22 13:30 72 12 07/29/22 13:21 75 20 07/29/22 12:56 36.5 C 82 20 217/96 H 98 Room Air (2) Right-sided carotid artery disease Carotid artery disease type: unspecified Qualified Code(s): I77.9 - Disorder of arteries and arterioles, unspecified
[2022-07-29] MEDS ORDERED: LORazepam 0.5 MG TAB PO PRN (17:45)
[2022-07-29] MEDS ORDERED: PHARMACIST DISCHARGE MED REC CONSULT PRN (17:45)
[2022-07-29] MEDS ORDERED: ACETAMINOPHEN 325 MG TAB PO PRN (17:45)
[2022-07-29] MEDS ORDERED: ONDANSETRON INJ 2 MG/ML 2 ML VIAL IV PRN (17:45)
[2022-07-29] MEDS ORDERED: POLYETHYLENE (MIRALAX) 17 GM PACK PO PRN (17:45)
[2022-07-29] MEDS ORDERED: GABAPENTIN 300 MG CAP PO PRN (17:53)
[2022-07-29] MEDS ORDERED: LABETALOL HCL IV 5 MG/ML 20ML IV PRN (18:00)
[2022-07-29] MEDS ORDERED: LORazepam 1 MG TAB PO PRN (18:54)
--- NOTE | 2022-07-30 00:15 | Magnetic Resonance Report ---
Exam(s): MRI HEAD Without Contrast EXAM: MR Head Without Intravenous Contrast CLINICAL HISTORY: Reason for exam: vision change. TECHNIQUE: Magnetic resonance images of the head/brain without intravenous contrast in multiple planes. Comparison made to prior noncontrast head CT from the same day. FINDINGS: Brain: Minimal nonspecific white matter changes. The flow voids at the base of the brain are intact. No mass. No hemorrhage. No acute infarct. Ventricles: Unremarkable. No ventriculomegaly. Bones/joints: Unremarkable. Sinuses: Unremarkable as visualized. No acute sinusitis. Mastoid air cells: Unremarkable as visualized. No mastoid effusion. Orbits: Unremarkable as visualized. IMPRESSION: No evidence of acute intracranial pathology. Minimal nonspecific white matter changes. Electronically signed by: Carli Alvarez MD 07/30/22 00:14 AM
[2022-07-30 08:26] LABS: Basophils # (auto) 0.06 K/uL (0-0.2); Basophils % (auto) 0.9 %; Hematocrit (blood only) 44.4 % (37.0-47.0); Immature Granulocytes # (auto) 0.02 K/uL (0.01-0.20); Immature Granulocytes % (auto) 0.3 %; Lymphocytes # (auto) 1.08 K/uL (1.2-3.4); Lymphocytes % (auto) 16.3 %; Mean Corpuscular Hemoglobin 31.1 pg (25.0-34.0); Mean Corpuscular Hgb Conc 33.8 g/dL (32.0-36.0); Mean Corpuscular Volume 91.9 fL (80.0-100.0); Mean Platelet Volume 9.6 fL (9.4-12.4); Monocytes # (auto) 0.64 K/uL (0.11-0.59); Monocytes % (auto) 9.7 %; Neutrophils # (auto) 4.43 K/uL (1.40-6.50); Neutrophils % (auto) 66.8 %; Platelet Count 346 K/uL (130-400); RDW Coefficient of Variation 12.7 % (11.5-14.5); RDW Standard Deviation 42.6 fL (36.4-46.3); Red Blood Count 4.83 M/uL (4.20-5.40); White Blood Count 6.63 K/ul (4.8-10.8)
[2022-07-30 08:51] LABS: BUN Creatinine Ratio 17.1 (10-20); Calcium 9.7 mg/dl (8.6-10.3); Chol HDL Ratio 4.5 (0-5); Creatinine Clr Calc Pharmacy 100.6 ml/min; Est GFR (African American) 90.1 ml/min; Est GFR (Non-African American) 77.8 ml/min; Potassium 4.2 mmol/L (3.5-5.1)
[2022-07-30] MEDS ORDERED: FUROSEMIDE 20 MG TAB PO SCH (09:00)
[2022-07-30] MEDS ORDERED: CLOPIDOGREL BISULFATE 75 MG TAB PO SCH (09:00)
[2022-07-30] MEDS ORDERED: PANTOprazole 40 MG TAB PO SCH (09:00)
[2022-07-30] MEDS ORDERED: ASPIRIN 81 MG ECTAB PO SCH (09:00)
[2022-07-30] MEDS ORDERED: ATENOLOL 50 MG TABLET PO SCH (09:00)
[2022-07-30] MEDS ORDERED: ATORVASTATIN 40 MG TAB PO SCH (09:00)
[2022-07-30 09:33] LABS: Estimated Average Glucose 126 mg/dl
--- NOTE | 2022-07-30 10:26 | Neurology Consultation ---
Date of Consultation July 30, 2022 Assessment & Plan (1) TIA (transient ischemic attack): Plan NEUROLOGY CONSULTATION Assessment & Plan: Impression: pt with transient rt visual disturbance, likely TIA event. pt with rt ICA 90% stenosis. pt clinically asymptomatic and doing well. Recommendations: -DAPT for 90 days and then can do ASA only after that routine outpt vascular surgery consult for ICA stenosis. statin as now no longer need permissive HTN SBP goal less than 140 not much to add at this point. call again if new question. Dr. Reji Edwards MD [facility] Neurology Chief Complaint: vision change History of Present Illness: pt with brief rt eye vision change that is now resolved. brief word finding issue and resolved too. this morning asymptomatic and feeling well. did have HTN urgency also. mri brain negative for stroke. chart reviewed. Admission/Initial HPI documentation: Ms Pretty Levy is a 61 year old female with history of HLD, HTN, prediabetes, GERD, morbid obesity presents with vision changes. Patient did not feel well yesterday, just "different, odd". This morning, also felt "odd". At work she was having word finding difficulty and then around 1130am his right eye she lost vision on the top portion (still able to see things on bottom). This vision change lasted about 1 minute, the vision got a little blurry then she lost vision on her right eye. That lasted for 1-2 minutes. She called her friend who brought her to the ER. She has been having right neck pain and she has been rubbing her neck at home. Patient was in her usual state of health until 30 minutes before coming to the ER when she was at work and suddenly describes a "curtain coming over her vision". During this time, she was experiencing word finding difficulty. Symptoms resolved by the time she arrived to ER but she still feels "off" and not quite herself. In the ER, noted to have an elevated BP of 210/86. CT head negative for acute findings. CTA head/neck significant for 90% right proximal ICA stenosis and 50% left proximal ICA stenosis. She is already on aspirin 81mg daily. In the ER, she received aspirin 324mg. ROS- denies chest pain, shortness of breath, fevers/chills, diarrhea, urinary symptoms En route to hospital, she was shaky and felt flushed, slightly nauseous but no vomiting Earlier she had a headache which has since resolved. Past Medical History: See chart Meds: See chart I personally reviewed all of the medications Social & Family History: See chart Review of Systems: Per initial HPI on admission. Physical Exam: GEN: NAD HEENT: Normocephalic Neuro: Mental status:A & O x 3.No dysarthria or aphasia.No neglect. Fluent speech. No apraxia Cranial Nerves:II-XII intact Motor:Normal bulk and tone,5/5 strength x 4 extremities Coordination:Intact Reflexes:+2 throughout, down going toes chalino Sensation: Intact x 4 extremities to touch Chart reviewed I have spent more than 50% educating patient about potential diagnosis and neuro logical evaluation and coordinating care with patient's treatment team. Total time spent (including chart review and coordination of care): 80 min (this includes chart review). History of Present Illness Attending Physician: Guy Rodriguez MD Allergies Allergy/AdvReac Type Severity Reaction Status Date / Time No Known Allergies Allergy Verified 07/29/22 13:34 Home Medications Medication Instructions Recorded Confirmed Type aspirin 81 mg tablet,delayed 81 mg PO QAM 11/01/19 07/29/22 History release atenolol 50 mg tablet (Tenormin) 50 mg PO QAM 11/01/19 07/29/22 History furosemide 20 mg tablet 20 mg PO QAM 11/01/19 07/29/22 History atorvastatin 10 mg tablet 10 mg PO QAM 04/03/22 07/29/22 History gabapentin 300 mg tablet 300 mg PO TID PRN Pain 04/03/22 07/29/22 History lorazepam 0.5 mg tablet 0.5 mg PO TID PRN Anxiety 04/03/22 07/29/22 History omega-3 fatty acids 1,000 mg PO DAILY 04/03/22 07/29/22 History pantoprazole 40 mg tablet,delayed 40 mg PO QAM 04/03/22 07/29/22 History release Patient History Medical History Encounter for pre-operative examination History of COVID-19 diagnosed 05/2020--asymptomatic (only tested for a cruise)--no symptoms now Hypertension Morbid obesity BMI 56 Osteoarthritis Right knee DJD Surgical History History of section History of D&C History of laparoscopic cholecystectomy History of right knee joint replacement History of surgery removal of fatty tumor off left leg History of total left knee replacement (TKR) History of total right knee replacement History of wisdom tooth extraction Nausea and vomiting after administration of anesthetic agent Status post total left knee replacement Family History Mother PONV (postoperative nausea and vomiting) Social History Smoking Status: Never smoker Second Hand Exposure: No; Hx Alcohol Use: Yes Alcohol type: beer Hx Substance Use: No Preferred Language: Sinhala Communication Ability: Effective 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
--- NOTE | 2022-07-30 11:36 | Pharmacy Report ---
- Date of Service July 30, 2022 - Pharmacy CVA/TIA Medication Review Medications to Prevent Stroke handout has been added to the patients discharge packet. Antiplatelet(s) * aspirin 81 mg PO daily + clopidogrel 75 mg PO daily x 90 days, then aspirin only * Patient is already on pantoprazole (no change to PPI needed) Cholesterol * High intensity statin: atorvastatin 40 mg daily DVT Prophylaxis * SCD knee Therapeutic Anticoagulation * No history of Afib/Aflutter noted Type 2 Diabetes * Patient does not have T2DM
--- NOTE | 2022-07-30 13:11 | Electrocardiogram Report ---
Test Reason : Blood Pressure : / mmHG Vent. Rate : 080 BPM Atrial Rate : 080 BPM P-R Int : 166 ms QRS Dur : 088 ms QT Int : 382 ms P-R-T Axes : 059 028 054 degrees QTc Int : 440 ms Normal sinus rhythm Normal ECG When compared with ECG of 14-FEB-2021 14:28, No significant change was found Confirmed by Castillo Ackerman ([id number]) on 07/30/2022 1:11:16 PM Referred By: REFERRED SELF Confirmed By:Catracho Ackerman
--- NOTE | 2022-07-30 14:21 | Hospitalist Progress Note ---
Date of Service July 30, 2022 Assessment & Plan (1) TIA (transient ischemic attack): (2) Right-sided carotid artery disease: (3) Morbid obesity: (4) Hyperlipidemia: Plan TIA Carotid artery stenosis Prediabetes Presented with Vision field defect and Word finding difficulty --MRI Brain:No evidence of acute intracranial pathology. Minimal nonspecific white matter changes. --Head CTA:No central vessel occlusion. No intracranial aneurysm. --Neck CTA:Atherosclerotic plaque of the right carotid bulb results in high- grade stenosis of greater than 90% within the proximal cervical segment of the right ICA. Less than 50% stenosis of the proximal cervical segment left ICA. Nonspecific mild cervical chain, mediastinal and supraclavicular lymphadenopathy. --ECHO: No ASD, no interatrial shunt -- A1c 6.0 -- Appreciate neurology input Continue dual antiplatelet therapy for 90 days as per neurology Increase Lipitor dose to 40 mg daily Advised to follow-up with vascular surgery, neurology upon discharge Morbid obesity -ongoing weight loss counseling BMI 57 HTN -continue atenolol, lasix DVT ppx -SCDs Code status -Full Admission and Anticipated Discharge Date Admission Date: July 29, 2022 Subjective Patient is seen and examined at bedside Right eye visual changes resolved Speech back to baseline Denies any focal weakness, numbness, tingling, chest pain, dyspnea No other complaints Review of Systems Review of Systems: All systems reviewed & are unremarkable except as noted in Subjective Physical Exam Physical Exam: Physical Exam: Vitals signs as noted above General Appearance:Morbidly Obese, no apparent distress Head: normocephalic, Atraumatic Eyes: normal inspection, EOMI Neck: supple, Trachea midline Respiratory/Chest: Normal breath sounds, CTA, No accessory muscle use Cardiovascular: S1, S2, No murmur Abdomen/GI:Soft, Non tender, Bowel sounds present Extremities/Musculoskeletal:normal inspection, Trace edema Neurologic/Psych:AAOX3, grossly no focal neurological deficits Skin: normal color, warm Results & Data Results & Data Vital Signs (Past 12 Hours) Vital Signs Temp Pulse Resp BP Pulse Ox O2 Del Method 07/30/22 11:38 36.7 C 73 18 119/73 93 Room Air 07/30/22 07:54 36.6 C 78 20 161/86 H 95 Room Air 07/30/22 05:31 36.6 C 75 20 166/86 H 96 Room Air Laboratory Results Short CBC 07/30/22 Range/Units 07:56 WBC 6.63 (4.8-10.8) K/ul Hgb 15.0 (12.0-16.0) g/dl Hct 44.4 (37.0-47.0) % Plt Count 346 (130-400) K/uL BMP 07/30/22 07:56 Sodium 138 Potassium 4.2 Chloride 100 Carbon Dioxide 29 BUN 14 Creatinine 0.82 Glucose 111 H Calcium 9.7 (2) Right-sided carotid artery disease Carotid artery disease type: unspecified Qualified Code(s): I77.9 - Disorder of arteries and arterioles, unspecified
[2022-07-30] MEDS ORDERED: STROKE PATIENT DISCHARGE STA (14:28)
--- NOTE | 2022-07-30 19:52 | Discharge Summary ---
Date of Service July 30, 2022 Admission HPI Per Admitting Provider Ms Pretty Levy is a 61 year old female with history of HLD, HTN, prediabetes, GERD, morbid obesity presents with vision changes. Patient did not feel well yesterday, just "different, odd". This morning, also felt "odd". At work she was having word finding difficulty and then around 1130am his right eye she lost vision on the top portion (still able to see things on bottom). This vision change lasted about 1 minute, the vision got a little blurry then she lost vision on her right eye. That lasted for 1-2 minutes. She called her friend who brought her to the ER. She has been having right neck pain and she has been rubbing her neck at home. Patient was in her usual state of health until 30 minutes before coming to the ER when she was at work and suddenly describes a "curtain coming over her vision". During this time, she was experiencing word finding difficulty. Symptoms resolved by the time she arrived to ER but she still feels "off" and not quite herself. In the ER, noted to have an elevated BP of 210/86. CT head negative for acute findings. CTA head/neck significant for 90% right proximal ICA stenosis and 50% left proximal ICA stenosis. She is already on aspirin 81mg daily. In the ER, she received aspirin 324mg. ROS- denies chest pain, shortness of breath, fevers/chills, diarrhea, urinary symptoms En route to hospital, she was shaky and felt flushed, slightly nauseous but no vomiting Earlier she had a headache which has since resolved. Admission Exam Per Admitting Provider Physical Exam Physical Exam: Obese, no acute distress, non toxic ENMT: Normocephalic, atraumatic, mucous membrane moist Neck: Neck thick Respiratory: Breathing comfortably on room air, no wheezing/rhonchi/rales Cardiovascular: regular rate and rhythm, no murmurs/rubs/gallops Gastrointestinal (Abdomen): soft, non tender, non distended Musculoskeletal: no edema, no cyanosis or clubbing Skin: no rash, no bruising, no redness on exposed skin Neurologic: awake, alert, CN grossly intact, no visual field defect noted, 5/5 strength upper and lower extremity bilaterally Psychiatric: normal affect, speech linear, non pressured Principal Diagnosis Transient ischemic attack Discharge Data Allergies Allergy/AdvReac Type Severity Reaction Status Date / Time No Known Allergies Allergy Verified 07/29/22 13:34 Consultations 07/29/22 15:35 ED Decision to Admit Stat 07/29/22 17:45 Consult Neurology Routine Procedures Performed Laboratory Results WBC 6.63 K/ul (4.8-10.8) 07/30/22 07:56 RBC 4.83 M/uL (4.20-5.40) 07/30/22 07:56 Hgb 15.0 g/dl (12.0-16.0) 07/30/22 07:56 Hct 44.4 % (37.0-47.0) 07/30/22 07:56 MCV 91.9 fL (80.0-100.0) 07/30/22 07:56 MCH 31.1 pg (25.0-34.0) 07/30/22 07:56 MCHC 33.8 g/dL (32.0-36.0) 07/30/22 07:56 RDW Std Deviation 42.6 fL (36.4-46.3) 07/30/22 07:56 RDW Coeff of Sarika 12.7 % (11.5-14.5) 07/30/22 07:56 Plt Count 346 K/uL (130-400) 07/30/22 07:56 MPV 9.6 fL (9.4-12.4) 07/30/22 07:56 Immature Gran % (Auto) 0.3 % 07/30/22 07:56 Neut % (Auto) 66.8 % 07/30/22 07:56 Lymph % (Auto) 16.3 % 07/30/22 07:56 [place] % (Auto) 9.7 % 07/30/22 07:56 Eos % (Auto) 6.0 % 07/30/22 07:56 Baso % (Auto) 0.9 % 07/30/22 07:56 Neut # (Auto) 4.43 K/uL (1.40-6.50) 07/30/22 07:56 Lymph # (Auto) 1.08 K/uL (1.2-3.4) L 07/30/22 07:56 [place] # (Auto) 0.64 K/uL (0.11-0.59) H 07/30/22 07:56 Eos # (Auto) 0.40 K/uL (0-0.50) 07/30/22 07:56 Baso # (Auto) 0.06 K/uL (0-0.2) 07/30/22 07:56 Immature Gran # (Auto) 0.02 K/uL (0.01-0.20) 07/30/22 07:56 PT 10.3 Seconds (9.0-12.0) 07/29/22 13:10 INR 1.0 (0.9-1.1) 07/29/22 13:10 APTT 28.0 Seconds (21.0-31.0) 07/29/22 13:10 PTT Ratio 1.0 07/29/22 13:10 Sodium 138 mmol/L (136-145) 07/30/22 07:56 Potassium 4.2 mmol/L (3.5-5.1) 07/30/22 07:56 Chloride 100 mmol/L (98-107) 07/30/22 07:56 Carbon Dioxide 29 mmol/L (21-32) 07/30/22 07:56 Anion Gap 9 (3-11) 07/30/22 07:56 BUN 14 mg/dl (6-23) 07/30/22 07:56 Creatinine 0.82 mg/dl (0.6-1.2) 07/30/22 07:56 Est Cr Clr Drug Dosing 100.6 ml/min 07/30/22 07:56 Est GFR ( Amer) 90.1 ml/min 07/30/22 07:56 Est GFR (Non-Af Amer) 77.8 ml/min 07/30/22 07:56 BUN/Creatinine Ratio 17.1 (10-20) 07/30/22 07:56 Glucose 111 mg/dl (70-99(Fasting)) H 07/30/22 07:56 POC Glucose 128 mg/dl (70-99) H 07/29/22 13:11 Estimat Average Glucose 126 mg/dl 07/30/22 07:56 Hemoglobin A1c 6.0 % (4.5-5.6) H 07/30/22 07:56 Calcium 9.7 mg/dl (8.6-10.3) 07/30/22 07:56 Magnesium 1.8 mg/dl (1.7-2.4) 07/29/22 13:10 Total Bilirubin 0.5 mg/dl (0.2-1.0) 07/29/22 13:10 AST 19 U/L (13-39) 07/29/22 13:10 ALT 19 U/L (7-52) 07/29/22 13:10 Alkaline Phosphatase 87 U/L (34-104) 07/29/22 13:10 Troponin I High Sens 5.4 pg/ml (0-14) 07/29/22 13:10 Total Protein 7.2 gm/dl (6.0-8.3) 07/29/22 13:10 Albumin 4.4 gm/dl (3.4-5.0) 07/29/22 13:10 Globulin 2.8 gm/dl (2.5-4.0) 07/29/22 13:10 Albumin/Globulin Ratio 1.6 (0.9-2) 07/29/22 13:10 Triglycerides 235 mg/dl (0-150) H 07/30/22 07:56 Cholesterol 213 mg/dl (0-200) H 07/30/22 07:56 LDL Cholesterol, Calc 119 mg/dl 07/30/22 07:56 VLDL Cholesterol, Calc 47 mg/dl (0-30) H 07/30/22 07:56 HDL Cholesterol 47 mg/dl 07/30/22 07:56 Cholesterol/HDL Ratio 4.5 (0-5) 07/30/22 07:56 Urine Color Yellow 07/29/22 14:31 Urine Appearance Clear (Clear) 07/29/22 14:31 Urine pH 6.5 (4.5-7.5) 07/29/22 14:31 Ur Specific [place] 1.010 (1.000-1.030) 07/29/22 14:31 Urine Protein Negative (Negative) 07/29/22 14:31 Urine Glucose (UA) Negative (Negative) 07/29/22 14:31 Urine Ketones Negative (Negative) 07/29/22 14:31 Urine Blood Negative (Negative) 07/29/22 14:31 Urine Nitrite Negative (Negative) 07/29/22 14:31 Urine Bilirubin Negative (Negative) 07/29/22 14:31 Urine Urobilinogen Negative (Negative) 07/29/22 14:31 Ur Leukocyte Esterase Negative (Negative) 07/29/22 14:31 SARS-CoV-2, RNA, NAAT NEGATIVE (NEGATIVE) 07/29/22 15:00 Impressions Chest X-Ray 07/29/22 13:04 XR chest 1V portable CLINICAL HISTORY: neuro deficit, acute stroke suspected TECHNIQUE: Single frontal radiograph of the chest was obtained. Comparison: None available at the time of this dictation. FINDINGS: Exam is limited by underpenetration. The cardiomediastinal silhouette is normal. The lungs are clear. No evidence of pleural effusion or pneumothorax. IMPRESSION: No acute chest disease. ACT 112: Negative or not required by law. Electronically signed by: Kyaw Capellan M.D. 07/29/2022 1:[address] 07/29/22 13:04 CT OF THE HEAD WITHOUT CONTRAST CLINICAL HISTORY: neuro deficit, acute stroke suspected COMPARISON STUDY: No previous studies for comparison. CT DOSE: 1135.00 mGy.cm TECHNIQUE: Helical axial images of the head were obtained without IV contrast. Automated exposure control was utilized for the study. A dose lowering technique was utilized adhering to the principles of ALARA. FINDINGS: No acute intracranial hemorrhage, midline shift or mass effect is present. The ventricular system is unremarkable. The basal cisterns are patent. No extra-axial collections are present. There are no findings to suggest acute dural sinus thrombosis or acute territorial infarct. No significant calvarial abnormalities are present. Visualized portions of the sinuses and mastoid air cells are clear. IMPRESSION: No acute intracranial findings. ACT 112: Negative or not required by law. Electronically signed by: Amol Griggs M.D. 07/29/2022 2:47 PM Head CTA 07/29/22 13:04 CTA ANGIOGRAPHY OF THE HEAD CLINICAL HISTORY: neuro deficit, acute stroke suspected COMPARISON STUDY: No previous studies for comparison. TECHNIQUE: Helical axial images of the head were obtained following uneventful intravenous administration of 102 cc of Optiray. Sagittal and coronal reconstructions were viewed as well as maximal intensity projections on an independent 3-D workstation. Automated exposure control was utilized for the study. A dose lowering technique was utilized adhering to the principles of ALARA. FINDINGS: No acute intracranial hemorrhage is identified on the head CT which will be reported separately. Ventricular system is normal. Basal cisterns are patent. There are no extra-axial collections. There is moderate plaque within the bilateral cavernous carotids without significant stenosis. No central vessel occlusion is identified. The posterior circulation is intact. There is persistence of the right posterior cerebral artery. There is no intracranial aneurysm. There is no dissection within the intracranial vessels. IMPRESSION: No central vessel occlusion. No intracranial aneurysm. ACT 112: Negative or not required by law. Electronically signed by: Amol Griggs M.D. 07/29/2022 2:50 PM Neck CTA 07/29/22 13:04 CT angio neck with con CLINICAL HISTORY: 61 years-old Female with neuro deficit, acute stroke suspected. Acute strokelike symptoms COMPARISON STUDY: CTA had of same day TECHNIQUE: Following the IV administration of 10 2 mL of Optiray, CT angiogram of the neck was performed from the aortic arch to the skull base. Images are reviewed in the axial, sagittal, and coronal planes. 3-D MIPS images are created and assessed. IV contrast was administered without complication. All measurement s were calculated based on NASCET criteria. A dose lowering technique was utilized adhering to the principles of ALARA. FINDINGS: Three-vessel morphology of the thoracic aortic arch. Patency of the nominate and imaged subclavian arteries. The common carotid arteries are widely patent. Moderate to extensive atherosclerotic plaque of the carotid bulbs and proximal cervical segments of the internal carotid arteries. There is less than 50% stenosis of the left ICA. There is high-grade (greater than 90% stenosis) within the proximal cervical segment right ICA with only trickle flow noted on image 199. The remainder of the right internal carotid artery is patent with atherosclerotic plaque noted involving the cavernous and clinoid segments. Codominant and patent vertebral arteries. The basilar artery appears patent. Lung apices appear clear. No pneumothorax. Subcentimeter hypodense left-sided thyroid nodule. Mild mediastinal lymphadenopathy with paratracheal lymph nodes measure up to 10 mm. Additional cervical chain and supraclavicular lymph nodes measure up to 1.1 cm. Degenerative changes of the cervical spine. Cardiomegaly. IMPRESSION: 1. Atherosclerotic plaque of the right carotid bulb results in high-grade stenosis of greater than 90% within the proximal cervical segment of the right ICA. 2. Less than 50% stenosis of the proximal cervical segment left ICA. 3. Nonspecific mild cervical chain, mediastinal and supraclavicular lymphadenopathy. ACT 112: Negative or not required by law. The above report was generated using voice recognition software. It may contain grammatical, syntax or spelling errors. Electronically signed by: Rosas Street M.D. 07/29/2022 3:12 PM Brain MRI 07/29/22 17:45 Exam(s): MRI HEAD Without Contrast EXAM: MR Head Without Intravenous Contrast CLINICAL HISTORY: Reason for exam: vision change. TECHNIQUE: Magnetic resonance images of the head/brain without intravenous contrast in multiple planes. Comparison made to prior noncontrast head CT from the same day. FINDINGS: Brain: Minimal nonspecific white matter changes. The flow voids at the base of the brain are intact. No mass. No hemorrhage. No acute infarct. Ventricles: Unremarkable. No ventriculomegaly. Bones/joints: Unremarkable. Sinuses: Unremarkable as visualized. No acute sinusitis. Mastoid air cells: Unremarkable as visualized. No mastoid effusion. Orbits: Unremarkable as visualized. IMPRESSION: No evidence of acute intracranial pathology. Minimal nonspecific white matter changes. Electronically signed by: Carli Alvarez MD 07/30/22 00:14 AM Ordered Studies 07/29/22 13:04 CT angio head w con Stat CT angio neck with con Stat CT head/brain wo con Stat 07/29/22 17:45 MR brain wo con Routine Hospital Course (1) TIA (transient ischemic attack): (2) Right-sided carotid artery disease: (3) Morbid obesity: (4) Hyperlipidemia: Plan TIA Carotid artery stenosis Prediabetes Presented with Vision field defect and Word finding difficulty --MRI Brain:No evidence of acute intracranial pathology. Minimal nonspecific white matter changes. --Head CTA:No central vessel occlusion. No intracranial aneurysm. --Neck CTA:Atherosclerotic plaque of the right carotid bulb results in high- grade stenosis of greater than 90% within the proximal cervical segment of the right ICA. Less than 50% stenosis of the proximal cervical segment left ICA. Nonspecific mild cervical chain, mediastinal and supraclavicular lymphadenopathy. --ECHO: No ASD, no interatrial shunt -- A1c 6.0 -- Appreciate neurology input Continue dual antiplatelet therapy for 90 days as per neurology Increase Lipitor dose to 40 mg daily Advised to follow-up with vascular surgery, neurology upon discharge Morbid obesity -ongoing weight loss counseling BMI 57 HTN -continue atenolol, lasix DVT ppx -SCDs Code status -Full Total Time Total Time Spent Total Time Spent (In Minutes): 50 minutes Discharge Plan Discharge Items Patient Disposition: Home - Self-Care Reason For Visit: TIA Discharge Diagnosis: Transient ischemic attack Activity: Per Instructions section Exercise/Sports: Wait until after follow-up appointment Non-emergency contact: Primary Care Provider, Surgeon and Neurologist Call non-emergency contact if: you have any medication questions, your symptoms worsen, your pain is concerning for you and you have a fever Follow-up/Referrals: Bailey Addison PA-C [Physician Bobcat Operator] - (Date & Time 08/19/2022 11:20 AM Provider Bailey Addison PA-C Department Neurology [facility] ) Charlotte Diamond PA-C [Primary Care Provider] - (Date & Time 08/05/2022 9:20 AM Provider Charlotte Diamond PA-C Department [facility] ) Marco Estrada MD [Outside Practitioners] - (Date & Time 08/01/2022 11:00 AM Provider Marco Estrada MD Department Vascular Surg [facility], use the Advance Medicine Entrance. Take the "H" elevator to the 4th floor. ) Diet: Heart Healthy Addtl Attending Provider Instructions: Follow-up with your primary care physician Charlotte Diamond PA-C on 08/05/2022 9:20 AM Follow-up with your neurologist Bailey Addison PA-C on 08/19/2022 11:20 AM Follow-up with your vascular surgeon on 08/01/2022 11:00 AM -- Take aspirin along with Plavix daily for 90 days and then transition to Asp irin alone as recommended by your neurologist. Further recommendations on follow-up visit. --- Start taking Lipitor 40 mg daily for better control of your blood cholesterol level. Seek immediate medical attention if your symptoms reoccur or worsen Please take all medications as instructed on discharge list below. Please call if you have any questions or problems. You can reach a [facility] hospitalist on duty at [facility] 24 hours a day by calling [phone] Risk Factors for Stroke: You can reduce your chances of stroke by working with your medical provider to adopt a healthy lifestyle. Some specific ways to lower your chance of stroke are: * If you are a smoker, now is the time to stop smoking cigarettes * If you are diabetic, improve the control of your blood sugars * Avoid excessive amounts of alcohol * Control high blood pressure * Lose weight if you are overweight * Be sure to lead an active lifestyle * Eat a healthy diet low in salt, cholesterol and fat You should know about other risk factors for stroke that you are unable to control. These include: * Age 55 years or older * Male gender * Certain racial groups: , or / * Family History of Stroke, Mini stroke or Heart Attack * Sickle Cell Disease Follow Up: It is important for you to keep your follow up appointments with your medical provider. Who to Call and When: Medical Emergencies: Call 911 immediately if you experience any of the fol [facility] warning signs and symptoms of Stroke: * Sudden numbness or weakness of the face, arm or leg, especially on one side of the body * Sudden confusion, trouble speaking or understanding * Sudden trouble seeing in one or both eyes * Sudden trouble walking, dizziness, loss of balance or coordination * Sudden severe headache with no cause Do not delay calling 911 if you experience any warning signs or symptoms of a stroke. Delay in seeking medical attention may affect what treatments can be given to you. . Pending Studies at Discharge: No Stand-Alone Forms: My [facility], Smoking Cessation, Medications to Prevent Stroke Medications and DC Order Prescriptions: New atorvastatin 40 mg Tablet 40 mg PO QAM Qty: 30 2RF clopidogrel 75 mg Tablet 75 mg PO QAM Qty: 30 2RF Continued aspirin 81 mg Tablet,Delayed Release (Dr/Ec) 81 mg PO QAM furosemide 20 mg Tablet 20 mg PO QAM atenolol [Tenormin] 50 mg Tablet 50 mg PO QAM lorazepam 0.5 mg Tablet 0.5 mg PO TID PRN (Reason: Anxiety) omega-3 fatty acids Capsule 1,000 mg PO DAILY gabapentin 300 mg Tablet 300 mg PO TID PRN (Reason: Pain) pantoprazole 40 mg tablet,delayed release (DR/EC) 40 mg PO QAM Rx Instructions: take 30 min prior to Breakfast everyday. Discontinued atorvastatin 10 mg Tablet 10 mg PO QAM Discharge Orders: Discharge Order (Routine); Ordered 07/30/22 Ordered By: Guy Yadav/Other Patient Handouts: Prediabetes, 5 Steps for Eating Healthier Admission Data Admit Date/Time: 07/29/22 17:12 Attending Provider: Guy Rodriguez Admit Provider: Arturo Gonzalez Primary Care Provider: Charlotte Diamond Other Providers: Arturo Gonzalez ; Reji Edwards Other Interventions: Discharge Summary Assessment (RN) Last Done: 07/30/22 14:31
--- NOTE | 2022-07-31 11:04 | Pharmacy Report ---
Pharmacist Stroke Counseling - Date of Service July 31, 2022 - Scope: Pharmacy has been consulted to provide medication discharge counseling for this patient admitted with [ischemic stroke] [hemorrhagic stroke] [transient ischemic attack] as per the Pharmacist Discharge Counseling for Stroke Patients [employer] . - Medications on Discharge: Home Medications Medication Instructions Recorded Confirmed aspirin 81 mg tablet,delayed 81 mg PO QAM 11/01/19 07/29/22 release atenolol 50 mg tablet (Tenormin) 50 mg PO QAM 11/01/19 07/29/22 furosemide 20 mg tablet 20 mg PO QAM 11/01/19 07/29/22 gabapentin 300 mg tablet 300 mg PO TID PRN Pain 04/03/22 07/29/22 lorazepam 0.5 mg tablet 0.5 mg PO TID PRN Anxiety 04/03/22 07/29/22 omega-3 fatty acids 1,000 mg PO DAILY 04/03/22 07/29/22 pantoprazole 40 mg tablet,delayed 40 mg PO QAM 04/03/22 07/29/22 release New Rx's Medication Instructions Recorded atorvastatin 40 mg tablet 40 mg PO QAM #30 tabs 07/30/22 clopidogrel 75 mg tablet 75 mg PO QAM #30 tabs 07/30/22 - Action: The above medications, specifically ones for stroke treatment/prophylaxis, have been reviewed in detail with the patient and/or patient sales representative girls' apparel(s) prior to discharge. This includes indication, common adverse reactions, drug interactions, and medication administration. Medication counseling has been employed using the teach-back method to ensure understanding. - Outcome: The patient and/or patient sales representative girls' apparel(s) have demonstrated understanding of the medications. Additional comments: Called and spoke with patient regarding medication changes. Patient very knowledgeable about changes. She did not have any questions. She is aware to bring an updated med list with her tomorrow to her doctor's appt. No other pertinent positives on interview today Thank you for allowing pharmacy to be involved in the care of this patient. Please call [phone] with any additional questions
== END 2022-07-30 17:47 | disposition home or self-care (01) ==
LOC: ED 12:51 → EDINP 12:51 → SUATTDRO 17:12 → EDINP 17:37 → 2S 22:25